=== PATIENT | female | born 2000 | race Two or more races ===

== ENCOUNTER 2019-09-14 15:41 | Outpatient (CLI) | payer OTHER, SELFPAY ==
[2019-09-14 16:32] LABS: Potassium 3.4 mmol/L (3.4-5.0)
== END 2019-09-14 15:42 | disposition home or self-care (01) ==
PROVIDERS: Visit Provider Psychiatry & Neurology Neurology
DX: G93.2 Benign intracranial hypertension (principal)
CPT/HCPCS: 36415; 84132

== ENCOUNTER 2020-02-01 12:48 | Outpatient (CLI) | payer OTHER, SELFPAY ==
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
== END 2020-02-01 12:49 | disposition home or self-care (01) ==
LOC: ANHIMG 12:54
PROVIDERS: PCP Emergency Medicine; Visit Provider Emergency Medicine
DX: M54.5 Low back pain (principal)
CPT/HCPCS: 72100

== ENCOUNTER 2020-06-04 10:47 | Outpatient (RCR) | payer OTHER, SELFPAY ==
[2020-06-04 12:38] LABS: Hematocrit 44.4 % (37.0-47.0); Hemoglobin 14.5 g/dL (12.0-15.0); Mean Corpuscular HGB Conc 32.7 g/dl (32-36); Mean Corpuscular Hemoglobin 30.7 pg (26-34); Mean Corpuscular Volume 93.9 fl (80-100); Mean Platelet Volume 11.1 fl (7.4-10.4); Platelet Count Result 311 k/mm3 (150-375); Red Blood Count 4.73 M/mm3 (4.2-5.4); Red Cell Distribution Width 12.5 % (11.5-14.5); White Blood Count 11.1 K/mm3 (4.5-10.0)
[2020-06-04 13:29] LABS: HIV 1/2 Ab P24 Ag Result Negative (Negative)
[2020-06-04 14:17] LABS: Hepatitis B Surface Antigen Negative (Negative); Rubella IgG Antibody 22.2 IU/ML
[2020-06-04 14:20] LABS: Rapid Plasma Reagin Non-Reactive (NonReactive)
[2020-06-08 19:11] LABS: CMV IgG Antibody <0.60 U/mL (<0.60)
== END 2020-09-02 23:59 | disposition home or self-care (01) ==
LOC: ANHLAB 10:47
PROVIDERS: PCP Emergency Medicine; Visit Provider Obstetrics & Gynecology
DX: N92.5 Other specified irregular menstruation (principal); Z11.4 Encounter for screening for human immunodeficiency virus [HIV]
CPT/HCPCS: 36415; 84702; 85027; 86592; 86644; 86703; 86747; 86762; 86787; 86850; 86900; 86901; 87086; 87340; G0432

== ENCOUNTER 2020-09-16 11:13 | Outpatient (CLI) | payer OTHER, SELFPAY ==
[2020-09-16 12:35] LABS: Beta HCG Quantitative 3.72 mIU/ML
== END 2020-09-16 11:14 | disposition home or self-care (01) ==
PROVIDERS: PCP Emergency Medicine; Visit Provider Psychiatry & Neurology Neurology
DX: G43.909 Migraine, unspecified, not intractable, without status migrainosus (principal); N92.6 Irregular menstruation, unspecified
CPT/HCPCS: 36415; 84702

== ENCOUNTER 2020-09-19 10:56 | Outpatient (CLI) | payer OTHER, SELFPAY ==
[2020-09-19 11:54] LABS: Beta HCG Quantitative < 2.39 mIU/ML
== END 2020-09-19 10:57 | disposition home or self-care (01) ==
PROVIDERS: PCP Emergency Medicine; Visit Provider Obstetrics & Gynecology
DX: N92.6 Irregular menstruation, unspecified (principal)
CPT/HCPCS: 36415; 84702

== ENCOUNTER 2020-11-06 08:35 | Outpatient (CLI) | payer OTHER, SELFPAY ==
[2020-11-06 10:05] LABS: HIV 1/2 Ab P24 Ag Result Negative (Negative)
[2020-11-06 10:29] LABS: Hepatitis B Surface Antigen Negative (Negative)
[2020-11-06 10:35] LABS: HAV RESULT Negative (Negative); Hepatitis B Core IgM Result Negative (Negative)
[2020-11-06 10:46] LABS: Hepatitis C Virus Antibody Negative (Negative)
[2020-11-07 12:02] LABS: Rapid Plasma Reagin Non-Reactive (NonReactive)
== END 2020-11-06 08:36 | disposition home or self-care (01) ==
LOC: ANHLAB 08:38
PROVIDERS: PCP Emergency Medicine; Visit Provider Obstetrics & Gynecology
DX: Z11.3 Encounter for screening for infections with a predominantly sexual mode of transmission (principal)
CPT/HCPCS: 36415; 80074; 86592; 86703; G0432

== ENCOUNTER 2020-11-07 15:36 | Outpatient (CLI) | payer OTHER, SELFPAY ==
[2020-11-07 16:26] LABS: Anion Gap 7 mmol/L (8-16); Blood Urea Nitrogen 12 mg/dL (7-17); Calcium 8.9 mg/dL (8.4-10.2); Carbon Dioxide 26 mmol/L (22-30); Chloride 107 mmol/L (98-107); Estimated Glomerular Filt Rate > 60; Glucose 86 mg/dL (65-105); Potassium 2.9 mmol/L (3.4-5.0); Sodium 140 mmol/L (137-145)
== END 2020-11-07 15:37 | disposition home or self-care (01) ==
LOC: ANHLAB 15:39
PROVIDERS: PCP Emergency Medicine; Visit Provider Psychiatry & Neurology Neurology
DX: G93.2 Benign intracranial hypertension (principal)
CPT/HCPCS: 36415; 80048

== ENCOUNTER 2020-12-03 12:03 | Outpatient (CLI) | payer OTHER, SELFPAY ==
[2020-12-03 13:17] LABS: Beta HCG Quantitative < 2.39 mIU/ML
== END 2020-12-03 12:04 | disposition home or self-care (01) ==
PROVIDERS: PCP Emergency Medicine; Visit Provider Obstetrics & Gynecology
DX: N92.6 Irregular menstruation, unspecified (principal)
CPT/HCPCS: 36415; 84702

== ENCOUNTER 2021-01-20 09:25 | Outpatient (CLI) | payer OTHER, SELFPAY ==
[2021-01-20 10:33] LABS: Beta HCG Quantitative < 2.39 mIU/ML
== END 2021-01-20 09:26 | disposition home or self-care (01) ==
PROVIDERS: PCP Emergency Medicine; Visit Provider Obstetrics & Gynecology
DX: N92.6 Irregular menstruation, unspecified (principal)
CPT/HCPCS: 36415; 84702

== ENCOUNTER 2021-02-15 12:38 | Emergency (ER) | payer OTHER, SELFPAY ==
--- NOTE | ~2021-02-15 | US_ITS ---
EXAMINATION: US OB <=14 wk fetus w TV EXAM DATE: 02/15/2021 15:51 INDICATION: , pelvic pain. Beta hCG 103. 1st trimester. TECHNIQUE: Pelvic obstetrical transabdominal sonogram was performed by a technologist. There are mu ltiple grayscale and Doppler images available for interpretation. There are no earlier studies of th is gestation for comparison. FINDINGS: Uterus measures 8.1 x 4.5 x 4.0 cm, without intrauterine gestation sac identified, however would be unusual to identify one with beta hCG level provided above. Endometrial stripe measures 15 mm, within normal limits. There is small free pelvic fluid. Right adnexa: The ovary measures 3.8 x 2.7 x 2.5 cm and is morphologically normal. Ovarian vascular f low confirmed. Left adnexa: The ovary measures 2.5 x 1.6 x 1.5 cm and is morphologically normal. Ovarian vascular fl ow confirmed. IMPRESSION: Unremarkable exam. Early intrauterine or recent spontaneous are common causes of elevated beta hCG in absence of intrauterine confirmation. Ultrasound can somet imes identify, but never exclude an ectopic in the setting of positive beta hCG. Follow up as warranted clinically with serial beta hCG levels or ultrasound. Reviewed, dictated and finalized at location A. IMPRESSION: Unremarkable exam. Early intrauterine or recent spontaneo us are common causes of elevated beta hCG in absence of intrauterine p regnancy confirmation. Ultrasound can sometimes identify, but never exclude an ectopic in the setting of positive beta hCG. Follow up as warranted clinically with serial beta hCG levels or ultrasound.
[2021-02-15 12:41] VITALS: BP 102/59; PULSE 95; RESP 16; TEMP 37.3; O2SAT 100
[2021-02-15] MEDS: SODIUM CHLORIDE 0.9% IV 1,000 ML 999 ML IV CONT (13:20)
[2021-02-15] MEDS: FAMOTIDINE 20 MG/2 ML VIAL IV PUSH (13:20)
[2021-02-15 13:25] LABS: Basophils Percent Auto 0.4 % (0.2-1.2); Eosinophils Percent Auto 0.4 % (0-4.4); Hemoglobin 12.3 g/dL (12.0-15.0); Immature Granulocyte Absolute 0.05 K/mm3 (0.00-0.031); Immature Granulocyte Percent A 0.5 % (0-0.5); Lymphocytes Absolute Auto 0.86 K/mm3 (0.9-3.2); Lymphocytes Percent Auto 8.9 % (18.3-44.2); Mean Corpuscular HGB Conc 33.2 g/dl (32-36); Mean Corpuscular Hemoglobin 30.3 pg (26-34); Mean Corpuscular Volume 91.1 fl (80-100); Mean Platelet Volume 10.8 fl (7.4-10.4); Monocytes Absolute Auto 0.8 K/mm3 (0.1-0.6); Monocytes Percent Auto 7.8 % (2.6-8.5); Neutrophils Absolute Auto 7.9 K/mm3 (1.3-6.7); Platelet Count Result 242 k/mm3 (150-375); Red Blood Count 4.06 M/mm3 (4.2-5.4); Red Cell Distribution Width 11.8 % (11.5-14.5); White Blood Count 9.6 K/mm3 (4.5-10.0)
[2021-02-15 13:34] LABS: Add Urine Microscopic? YES; Appearance Urine Cloudy (Clear); Bacteria Urine Trace /hpf; Bilirubin Urine Negative (Negative); Blood Urine Negative (Negative); Color Urine Yellow (Yellow); Glucose Urine UA Negative (Negative); Ketones Urine Negative (Negative); Leukocyte Esterase Ur 3+ LEU/UL (Negative); Mucus Urine Few /lpf; Nitrate Urine Negative (Negative); Protein Urine 1+ mg/dL (Negative); RBC Urine 21-50 /hpf (0-2); Specific Grav Ur 1.014 (1.001-1.035); Squamous Epithelial Cell Urine Many /hpf (Few); Urobilinogen Urine Negative mg/dL (<2.0); WBC Urine >75 /hpf
[2021-02-15 13:35] LABS: Alanine Aminotransferase 9 U/L (4-35); Alkaline Phosphatase 71 U/L (38-126); Anion Gap 9 mmol/L (8-16); Aspartate Amino Transferase 19 U/L (14-36); Bilirubin,Total 0.7 mg/dL (0.2-1.3); Blood Urea Nitrogen 6 mg/dL (7-17); Calcium 8.7 mg/dL (8.4-10.2); Carbon Dioxide 17 mmol/L (22-30); Chloride 111 mmol/L (98-107); Estimated CRCL calculation 122 ml/min; Estimated Glomerular Filt Rate > 60; Glucose 94 mg/dL (65-105); Lipase 27 U/L (23-300); Potassium 3.1 mmol/L (3.4-5.0); Sodium 137 mmol/L (137-145)
[2021-02-15 13:36] VITALS: BP 95/47; PULSE 81; RESP 18; TEMP 36.7; O2SAT 100
[2021-02-15 13:52] LABS: Beta HCG Quantitative 103.39 mIU/ML
--- NOTE | 2021-02-15 14:35 | ED.GENADULT ---
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 Patient denies other complaints has not taken anything for symptom Related Data Allergies Allergy/AdvReac Type Severity Reaction Status Date / Time No Known Allergies Allergy Verified 02/15/21 13:16 Review of Systems Review of Systems: All systems reviewed & are unremarkable except as noted in HPI and below PMFSH Social History Social History (Updated 02/15/21 @ 14:37 by Ray Jon PA-C) Tobacco type: e-cigarettes/vaping Gender identity (if verbalized by the patient): Female Exam Narrative: Exam Narrative: GENERAL: Well-appearing, well-nourished, and in no acute distress. HEAD: Normocephalic, atraumatic. EYES: PERRLA and EOMI. ENT: Nares clear, no rhinorrhea or epistaxis. Mucous membranes moist. CHEST: Clear to auscultation. No respiratory distress. No wheezes rales or rhonchi HEART: Regular rate and rhythm. No murmur heard. Normal peripheral pulses. ABDOMEN: Soft, mild tenderness in the lower abdomen no rebound or guarding, nondistended, normal active bowel sounds. EXTREMITIES: Normal range of motion. No edema. SKIN: Warm, dry, no rash. NEURO: No focal deficits. Alert and oriented x3. PSYCH: Normal mood and affect. Course Course Emergency Course: Patient presented with abdominal pain early has urinary tract infection was given fluids and antibiotics in the emergency department will follow with systems testing laboratory technician this week for repeat evaluation to rule out ectopic or other etiologies for pain there is no bleeding and she has been provided with reasons to return ABCs and vital signs intact and stable patient agrees with this plan Consultations Consultation #1: Discussed case with Dr. Gamboa who would like the patient to follow in clinic Tuesday for repeat hCG Date: 02/15/21 Time: 16:18 Vital Signs Vital signs: Vital Signs Temperature 99.2 F 02/15/21 12:41 Pulse Rate 95 02/15/21 12:41 Respiratory Rate 16 02/15/21 12:41 Blood Pressure 102/59 L 02/15/21 12:41 Pulse Oximetry 100 02/15/21 12:41 Temperature 98.1 F 02/15/21 13:36 Pulse Rate 81 02/15/21 13:36 Respiratory Rate 18 02/15/21 13:36 Blood Pressure 95/47 L 02/15/21 13:36 Pulse Oximetry 100 02/15/21 13:36 Medical Decision Making Vital Signs Vital Signs: Vital Signs Temperature 99.2 F 02/15/21 12:41 Pulse Rate 95 02/15/21 12:41 Respiratory Rate 16 02/15/21 12:41 Blood Pressure 102/59 L 02/15/21 12:41 Pulse Oximetry 100 02/15/21 12:41 Temperature 98.1 F 02/15/21 13:36 Pulse Rate 81 02/15/21 13:36 Respiratory Rate 18 02/15/21 13:36 Blood Pressure 95/47 L 02/15/21 13:36 Pulse Oximetry 100 02/15/21 13:36 Lab Data Result diagrams: 02/15/21 13:18 02/15/21 13:18 Labs: Lab Results 02/15/21 02/15/21 02/15/21 Range/Units 13:18 13:18 13:18 WBC 9.6 (4.5-10.0) K/mm3 RBC 4.06 L (4.2-5.4) M/mm3 Hgb 12.3 (12.0-15.0) g/dL Hct 37.0 (37.0-47.0) % MCV 91.1 (80-100) fl MCH 30.3 (26-34) pg MCHC 33.2 (32-36) g/dl RDW 11.8 (11.5-14.5) % Plt Count 242 (150-375) k/mm3 MPV 10.8 H (7.4-10.4) fl Immature Gran % (Auto) 0.5 (0-0.5) % Neut % (Auto) 82.0 H (45.5-73.1) % Lymph % (Auto) 8.9 L (18.3-44.2) % [place] % (Auto) 7.8 (2.6-8.5) % Eos % (Auto) 0.4 (0-4.4) %
[2021-02-15 16:03] VITALS: BP 103/60; PULSE 84; RESP 16; TEMP 37.1; O2SAT 99
[2021-02-15 17:08] VITALS: BP 105/77; PULSE 84; RESP 18; TEMP 36.9; O2SAT 99
== END 2021-02-15 17:08 | disposition home or self-care (01) ==
PROVIDERS: Emergency Medicine Emergency Medical Services; Emergency Provider Emergency Medicine; PCP Emergency Medicine
DX: O23.41 Unspecified infection of urinary tract in pregnancy, first trimester (principal); Z3A.00 Weeks of gestation of pregnancy not specified
CPT/HCPCS: 36415; 76801; 76817; 80053; 81001; 83690; 84702; 85025; 87086; 87088; 96365; 96367; 96375; 99284; J0131; J0696; J7030

== ENCOUNTER 2021-02-19 11:00 | Outpatient (CLI) | payer OTHER, SELFPAY ==
[2021-02-19 13:09] LABS: HIV 1/2 Ab P24 Ag Result Negative (Negative)
[2021-02-19 13:17] LABS: Hepatitis B Surface Antigen Negative (Negative)
[2021-02-19 13:23] LABS: HAV RESULT Negative (Negative); Hepatitis B Core IgM Result Negative (Negative)
[2021-02-19 13:34] LABS: Hepatitis C Virus Antibody Negative (Negative)
[2021-02-20 14:16] LABS: Rapid Plasma Reagin Non-Reactive (NonReactive)
== END 2021-02-19 11:01 | disposition home or self-care (01) ==
LOC: ANHLAB 11:03
PROVIDERS: PCP Emergency Medicine; Visit Provider Obstetrics & Gynecology
DX: Z11.3 Encounter for screening for infections with a predominantly sexual mode of transmission (principal); N92.5 Other specified irregular menstruation
CPT/HCPCS: 36415; 80074; 84702; 86592; 86703; G0432

== ENCOUNTER 2021-02-21 10:33 | Outpatient (CLI) | payer OTHER, SELFPAY | END 2021-02-21 10:34 | disposition home or self-care (01) | LOC: ANHLAB 10:36 | PROVIDERS: PCP Emergency Medicine; Visit Provider Obstetrics & Gynecology | DX: N92.5 Other specified irregular menstruation (principal) | CPT/HCPCS: 36415; 84702 ==

== ENCOUNTER 2021-03-30 08:46 | Outpatient (RCR) | payer OTHER, SELFPAY ==
[2021-03-30 09:39] LABS: Hematocrit 35.8 % (37.0-47.0); Hemoglobin 12.1 g/dL (12.0-15.0); Mean Corpuscular HGB Conc 33.8 g/dl (32-36); Mean Corpuscular Hemoglobin 29.9 pg (26-34); Mean Corpuscular Volume 88.4 fl (80-100); Mean Platelet Volume 12.2 fl (7.4-10.4); Platelet Count Result 228 k/mm3 (150-375); Red Blood Count 4.05 M/mm3 (4.2-5.4); Red Cell Distribution Width 11.7 % (11.5-14.5); White Blood Count 6.8 K/mm3 (4.5-10.0)
[2021-03-30 10:36] LABS: HIV 1/2 Ab P24 Ag Result Negative (Negative)
[2021-03-30 10:48] LABS: Hepatitis B Surface Anti Res Negative
[2021-03-30 10:54] LABS: Rubella IgG Antibody 24.2 IU/ML
[2021-03-31 11:34] LABS: Rapid Plasma Reagin Non-Reactive (NonReactive)
[2021-04-03 13:52] LABS: CMV IgG Antibody <0.60 U/mL (<0.60)
== END 2021-06-28 23:59 | disposition home or self-care (01) ==
LOC: ANHLAB 08:46
PROVIDERS: PCP Emergency Medicine; Visit Provider Obstetrics & Gynecology
DX: Z11.4 Encounter for screening for human immunodeficiency virus [HIV] (principal); O36.0110 Maternal care for anti-D [Rh] antibodies, first trimester, not applicable or unspecified; Z3A.00 Weeks of gestation of pregnancy not specified
CPT/HCPCS: 36415; 84702; 85027; 85461; 86592; 86644; 86703; 86706; 86747; 86762; 86787; 87086; G0432

== ENCOUNTER 2021-04-22 14:20 | Emergency (ER) | payer OTHER, SELFPAY ==
--- NOTE | 2021-04-22 16:07 | PC.NURSE ---
1509- no answer when called for triage
== END 2021-04-22 15:09 | disposition left against medical advice (07) ==
DX: Z53.21 Procedure and treatment not carried out due to patient leaving prior to being seen by health care provider (principal)
CPT/HCPCS: 99199

== ENCOUNTER 2021-06-04 11:55 | Emergency (ER) | payer OTHER, SELFPAY ==
--- NOTE | 2021-06-04 12:02 | ED.DENTAL ---
HPI - Dental/Oral General Chief complaint: Upper Respiratory Infection Stated complaint: toothache/cold symptoms Time Seen by Provider: 06/04/21 12:02 Source: patient, RN notes reviewed and old records reviewed Mode of arrival: ambulatory Limitations: no limitations History of Present Illness HPI Narrative: 21-year-old female who is 19 weeks has a history of depression, anxiety, idiopathic intracranial hypertension and low potassium presents to the [facility] with complaints of nasal congestion and dental pain. States has been going on for couple of days. No treatment prior to arrival because she is . Related Data Allergies Allergy/AdvReac Type Severity Reaction Status Date / Time No Known Allergies Allergy Verified 02/15/21 13:16 Review of Systems Review of Systems: All systems reviewed & are unremarkable except as noted in HPI and below Constitutional: Constitutional: Reports no additional constitutional complaints, Denies chills and Denies fever(s) Eyes: Eyes: Reports no additional eye complaints ENT: Reports as per HPI and Reports nasal congestion Comments: dental pain Cardiovascular: Cardiovascular: Reports no additional cardiovascular complaints Respiratory: Respiratory: Reports no additional respiratory complaints, Denies cough and Denies dyspnea Gastrointestinal: Gastrointestinal: Reports no additional gastrointestinal complaints Musculoskeletal: Musculoskeletal: Reports no additional musculoskeletal complaints Integumentary/Breasts: Skin/Breast: Reports system reviewed and no additional complaints, except as docu Neurologic: Reports system reviewed and no additional complaints, except as documented Psychiatric: Psychiatric: Reports no additional psychiatric complaints Allergic/Immunologic: Allergic/Immunologic: Reports no additional allergic/immunologic complaints PMFSH Past Medical History Medical History Anxiety and depression History of low potassium Intracranial hypertension Idiopathic Social History Social History Tobacco type: e-cigarettes/vaping Gender identity (if verbalized by the patient): Female Comments At the time of my signature, I reviewed and agree with the nursing past medical, surgical, social, and family history. There is no relevant family history pertinent to the patient complaint. Exam Narrative: Patient 19 weeks , heart tones were 148, baby very active. Const: General: healthy appearing, no acute distress and alert Nutritional Appearance: well nourished Orientation/consciousness: patient oriented x3 Limitations: no limitations HENMT: Head: normal to inspection Mouth: Yes lip normal Teeth and gingiva: gingiva abnormal edematous, diffusely erythematous and tender Teeth image: 1. Swelling and increased redness to the surrounding tissue of molar 32. Throat: posterior oropharynx normal and uvula midline Eyes: Conjunctivae: conjunctivae normal Pupils: Equal, round and reactive pupils present Neck: Neck: normal visual inspection, no lymphadenopathy and no meningeal signs Chest: Chest palpation & inspection: normal inspection of the chest Resp: Effort & Inspection: normal respiratory effort Auscultation: clear to auscultation bilaterally Cardio: Rate: regular rate Rhythm: regular rhythm Back/Spine/Pelvis: Back: no CVA tenderness Skin: General skin exam: normal color Rashes: no rashes Wounds: no wounds Neuro: General: patient oriented x3, moves all extremities, no meningeal signs and no focal motor deficits Speech: normal speech Gait exam (Neuro): Normal gait present Extrem: General: normal to inspection Psych: Appearance: grossly normal and well kempt Mental Status: mental status grossly normal Affect: normal affect Attitude: cooperative Thought content: Yes Normal thought content present Course Course Emergency C
[2021-06-04 12:07] VITALS: BP 102/61; PULSE 83; RESP 16; TEMP 36.4; O2SAT 98
== END 2021-06-04 12:19 | disposition home or self-care (01) ==
PROVIDERS: Emergency Provider Nurse Practitioner; PCP Emergency Medicine
DX: O99.612 Diseases of the digestive system complicating pregnancy, second trimester (principal); K92.89 Other specified diseases of the digestive system; K04.7 Periapical abscess without sinus; O99.512 Diseases of the respiratory system complicating pregnancy, second trimester; J01.10 Acute frontal sinusitis, unspecified; Z3A.19 19 weeks gestation of pregnancy; O99.332 Smoking (tobacco) complicating pregnancy, second trimester; F17.290 Nicotine dependence, other tobacco product, uncomplicated
CPT/HCPCS: 99213; G0463

== ENCOUNTER 2021-08-16 11:48 | Observation (INO) | payer OTHER, SELFPAY ==
[2021-08-16] VITALS (55 sets, daily range): BP systolic 73–105; BP diastolic 41–58; PULSE 70–114; TEMP 36.8; O2SAT 99–100; BMI 20.7
--- NOTE | 2021-08-16 12:30 | OBADM ---
This patient, Tracy Stewart, admitted to the OB room 115 for observation for cramping and back pain. Patient/family oriented to hospital policies and general routines including ID bracelet, bed and alarms, visiting hours, pain management, procedures, bathroom and other care routines, personal items, smoking policy, room service/diet, and visiting hours. Patient/Family are encouraged to report perceived risks to care and to ask questions if they do not understand what they are told or what they should do.
[2021-08-16 12:36] LABS: Add Urine Microscopic? NO; Appearance Urine Clear (Clear); Bilirubin Urine Negative (Negative); Blood Urine Negative (Negative); Color Urine Yellow (Yellow); Glucose Urine UA Negative (Negative); Ketones Urine Negative (Negative); Leukocyte Esterase Ur Negative LEU/UL (Negative); Nitrate Urine Negative (Negative); Protein Urine Negative (Negative); Specific Grav Ur 1.012 (1.001-1.035); Urobilinogen Urine Negative mg/dL (<2.0)
[2021-08-16] MEDS: ACETAMINOPHEN 500 MG TABLET 1000 MG PO (14:45)
[2021-08-16] MEDS: TERBUTALINE SULFATE 1 MG/ML VIAL 0.25 MG SUB-Q ×2 (14:48→15:54)
[2021-08-16 15:37] LABS: Fetal Fibronectin Negative
[2021-08-16 17:44] LABS: Amphetamine Screen Urine Negative (Negative); Barbiturate Screen Urine Negative (Negative); Benzodiazepines Screen Urine Negative (Negative); Cannabinoid Screen Urine Negative (Negative); Cocaine Screen Urine Negative (Negative); Methadone Screen Urine Negative (Negative); Opiate Screen Urine Negative (Negative); Phencyclidine Screen Urine Negative (Negative)
--- NOTE | 2021-08-19 15:14 | PM.OBTRLD ---
OB - Triage/Final Diagnosis Visit Information Comments/Additional reasons for admission: I have assessed the risk for this patient, Tracy Stewart, and determined that she would benefit from observation care. Evaluation Laboratory results: Laboratory Tests 08/16/21 08/16/21 08/16/21 12:20 12:20 14:51 Urine Color Yellow Urine Appearance Clear Urine pH 6.0 Ur Specific [place] 1.012 Urine Protein Negative Urine Glucose (UA) Negative Urine Ketones Negative Ur Blood (Man) Negative Urine Nitrate Negative Urine Bilirubin Negative Urine Urobilinogen Negative Leukocyte Esterase Rfl Negative Urine Opiates Screen Negative Urine Methadone Screen Negative Ur Barbiturates Screen Negative Ur Phencyclidine Scrn Negative Ur Amphetamine Screen Negative U Benzodiazepines Scrn Negative Urine Cocaine Screen Negative U Cannabinoids Screen Negative Fibronectin Negative Final Diagnosis (1) Abdominal pain affecting : Code(s): O26.899 - Other specified related conditions, unspecified trimester; R10.9 - Unspecified abdominal pain Status: Acute
== END 2021-08-16 18:23 | disposition home or self-care (01) ==
PROVIDERS: Admitting Provider Obstetrics & Gynecology; PCP Emergency Medicine; Visit Provider Obstetrics & Gynecology
DX: O26.893 Other specified pregnancy related conditions, third trimester (principal); R10.9 Unspecified abdominal pain; Z3A.29 29 weeks gestation of pregnancy
CPT/HCPCS: 80307; 81003; 82731; 96372; A9270; G0378; G0379; J3105

== ENCOUNTER 2021-09-23 18:02 | Observation (INO) | payer OTHER, SELFPAY ==
[2021-09-23] VITALS (59 sets, daily range): BP systolic 85–125; BP diastolic 48–77; PULSE 83–120; O2SAT 98–100
[2021-09-23] MEDS: TERBUTALINE SULFATE 1 MG/ML VIAL 0.25 MG SUB-Q ×3 (19:55→23:08)
[2021-09-23] MEDS: LACTATED RINGERS 1,000 ML 999 ML (21:25)
[2021-09-24] VITALS (24 sets, daily range): BP systolic 109; BP diastolic 50; PULSE 89–121; O2SAT 98–100; BMI 21.7
[2021-09-24] MEDS: NIFEdipine 30 MG TAB.ER.24 PO (00:30)
[2021-09-24] MEDS: MORPHINE SULFATE INJ (*CRX) 10 MG/ML AMP IM (00:30)
--- NOTE | 2021-09-24 01:59 | OBADM ---
This patient, Tracy Stewart, admitted to the OB room Labor/Delivery/Recovery 106 for observation. Patient/family oriented to hospital policies and general routines including ID bracelet, bed and alarms, visiting hours, pain management, procedures, bathroom and other care routines, personal items, smoking policy, room service/diet, and visiting hours. Patient/Family are encouraged to report perceived risks to care and to ask questions if they do not understand what they are told or what they should do.
--- NOTE | 2021-09-24 02:32 | PC.NURSE ---
SVE's not charted in obix prior to discharge. The following SVE's were done: 09/23/2021 @ 1815: 1cm/50%/-2 09/23/2021 @ 2150: 2-3cm/50%/-2 09/23/2021 @ 2305: 3cm/50%/-2 09/24/2021 @ 0200: 3cm/50%/-2 Pt comfortable and states contractions have stopped, verbalizes readiness to be discharged.
--- NOTE | 2021-09-26 09:16 | PM.OBTRLD ---
OB - Triage/Final Diagnosis Visit Information Reason for evaluation: threatened labor Comments/Additional reasons for admission: I have assessed the risk for this patient, Tracy Stewart, and determined that she would benefit from observation care.
== END 2021-09-24 02:11 | disposition home or self-care (01) ==
PROVIDERS: Admitting Provider Obstetrics & Gynecology; PCP Emergency Medicine; Visit Provider Obstetrics & Gynecology
DX: O47.03 False labor before 37 completed weeks of gestation, third trimester (principal); Z3A.35 35 weeks gestation of pregnancy
CPT/HCPCS: 96372; A9270; G0378; G0379; J2270; J3105; J7120

== ENCOUNTER 2021-09-25 23:40 | Observation (INO) | payer OTHER, SELFPAY ==
[2021-09-26 00:07] VITALS: BP 107/67; PULSE 92
[2021-09-26 00:16] VITALS: BP 105/61; PULSE 90
[2021-09-26 00:31] VITALS: BP 104/61; PULSE 79
[2021-09-26 00:46] VITALS: BP 84/41; PULSE 78
[2021-09-26 01:40] VITALS: BMI 21.9
[2021-09-26] MEDS: NIFEdipine 10 MG CAPSULE PO (02:15)
== END 2021-09-26 02:35 | disposition home or self-care (01) ==
PROVIDERS: Admitting Provider Obstetrics & Gynecology; PCP Emergency Medicine; Visit Provider Obstetrics & Gynecology
DX: O47.9 False labor, unspecified (principal); Z3A.00 Weeks of gestation of pregnancy not specified
CPT/HCPCS: A9270; G0378; G0379

== ENCOUNTER 2021-10-11 01:58 | Inpatient (IN) | payer OTHER, SELFPAY ==
[2021-10-11] VITALS (86 sets, daily range): BP systolic 70–121; BP diastolic 35–87; PULSE 62–113; RESP 16; TEMP 36.2–36.9; O2SAT 81–100; BMI 23.0
--- NOTE | 2021-10-11 04:00 | LDADM ---
This patient, Tracy Stewart, was admitted to Labor/Delivery/Recovery 107 on 10/11/21 at 01:58. Plans for labor, pain management and were discussed with patient. Patient/family oriented to hospital policies and general routines including ID bracelet, bed and alarms, visiting hours, pain management, procedures, bathroom and other care routines, personal items, smoking policy, room service/diet and guest tray routines, security routines, and visiting hours. Patient/Family are encouraged to report perceived risks to care and to ask questions if they do not understand what they are told or what they should do. See OBIX for further documentation.
[2021-10-11 04:36] LABS: Basophils Absolute Auto 0.1 K/mm3 (0.0-0.1); Basophils Percent Auto 0.3 % (0.2-1.2); Eosinophils Absolute Auto 0.1 K/mm3 (0-0.3); Eosinophils Percent Auto 0.5 % (0-4.4); Hemoglobin 12.2 g/dL (12.0-15.0); Immature Granulocyte Absolute 0.41 K/mm3 (0.00-0.031); Immature Granulocyte Percent A 2.4 % (0-0.5); Lymphocytes Absolute Auto 2.28 K/mm3 (0.9-3.2); Lymphocytes Percent Auto 13.3 % (18.3-44.2); Mean Corpuscular Hemoglobin 29.5 pg (26-34); Mean Corpuscular Volume 89.4 fl (80-100); Monocytes Absolute Auto 1.1 K/mm3 (0.1-0.6); Monocytes Percent Auto 6.2 % (2.6-8.5); Neutrophils Absolute Auto 13.3 K/mm3 (1.3-6.7); Neutrophils Percent Auto 77.3 % (45.5-73.1); Platelet Count Result 251 k/mm3 (150-375); Red Blood Count 4.14 M/mm3 (4.2-5.4); Red Cell Distribution Width 12.7 % (11.5-14.5); White Blood Count 17.2 K/mm3 (4.5-10.0)
--- NOTE | 2021-10-11 05:15 | WPDANESEPP ---
Anes - Eval Pre Procedure Procedure: labor epidural Date/Time: 10/11/21 05:15 Surgeon: nguyen Pre Op Diagnosis: R/O Labor Patient Data Age: 21 Gender: F Height: Weight: Last Vital Signs Temp 36.9 C 10/11/21 04:29 Pulse 83 10/11/21 05:00 BP 105/60 10/11/21 05:00 Allergies Allergy/AdvReac Type Severity Reaction Status Date / Time No Known Allergies Allergy Verified 10/09/21 10:18 Home Medications Medication Instructions Recorded Confirmed Type potassium chloride 20 mEq 20 meq PO DAILY #30 tablet 12/30/20 10/09/21 Rx tablet,extended release PNV cmb#95-ferrous fumarate-FA 1 tablet PO DAILY 08/16/21 10/09/21 History [] acetazolamide 250 mg tablet 250 mg PO BID #60 tablet 08/17/21 10/09/21 Rx sertraline 100 mg tablet 100 mg PO DAILY 08/25/21 10/09/21 History Laboratory Tests 10/11/21 10/11/21 04:27 04:27 WBC 17.2 K/mm3 H K/mm3 (4.5-10.0) RBC 4.14 M/mm3 L M/mm3 (4.2-5.4) Hgb 12.2 g/dL g/dL (12.0-15.0) Hct 37.0 % % (37.0-47.0) MCV 89.4 fl fl (80-100) MCH 29.5 pg pg (26-34) MCHC 33.0 g/dl g/dl (32-36) RDW 12.7 % % (11.5-14.5) Plt Count 251 k/mm3 k/mm3 (150-375) MPV 12.0 fl H fl (7.4-10.4) Immature Gran % (Auto) 2.4 % H % (0-0.5) Neut % (Auto) 77.3 % H % (45.5-73.1) Lymph % (Auto) 13.3 % L % (18.3-44.2) [place] % (Auto) 6.2 % % (2.6-8.5) Eos % (Auto) 0.5 % % (0-4.4) Baso % (Auto) 0.3 % % (0.2-1.2) Lymph # (Auto) 2.28 K/mm3 K/mm3 (0.9-3.2) [place] # (Auto) 1.1 K/mm3 H K/mm3 (0.1-0.6) Eos # (Auto) 0.1 K/mm3 K/mm3 (0-0.3) Baso # (Auto) 0.1 K/mm3 K/mm3 (0.0-0.1) Abs Immat Gran (auto) 0.41 K/mm3 H K/mm3 (0.00-0.031) Absolute Neuts (auto) 13.3 K/mm3 H K/mm3 (1.3-6.7) Absolute Nucleated RBC 0.0 K/mm3 K/mm3 (0.0-0.012) Nucleated RBC % 0.0 % % (0.0-0.2) RPR Pending Patient hx anesthesia problems: none Family hx anesthesia problems: none Results Review: All pre-operative results and documents have been reviewed as part of the pre-operative evaluation. [facility], [facility] Past Medical History Medical History (Updated 08/19/21 @ 15:14 by Roseanne Moran MD) Anxiety and depression History of low potassium Intracranial hypertension Idiopathic Surgical History Surgical History (Updated 08/24/21 @ 14:15 by LOS Cabral) H/O endoscopic sinus surgery History of gynecological procedure (03/06/20) nexplanon removal History of gynecological procedure (07/23/19) colposcopy History of gynecological procedure (06/20/19) nexplanon insertion Family History Family History (Updated 10/05/21 @ 13:38 by Veronica Calero RN) Grandparent Hypothyroidism Social History Social History (Updated 08/24/21 @ 14:17 by LOS Cabral) Tobacco type: e-cigarettes/vaping Alcohol intake: never Substance use: never Gender identity (if verbalized by the patient): Female Sexual Orientation (if Verbalized by the Patient): Bisexual Spiritual care concerns: No Exam Day of Procedure 10/11/21 05:15
[2021-10-11] MEDS: LACTATED RINGERS 1,000 ML 125 ML IV CONT (06:11)
--- NOTE | 2021-10-11 09:52 | WPDOBADMIT ---
Obstetrics - Admit Note Admission Note: record reviewed. No pertinent additions to the history and/or any subsequent changes in the physical findings that are not consistent with the expected course of the were found. Additions to the history and/or subsequent changes in the physical findings follow. Here in active labor. Now /-1 AROM with clear fluid. FHTs reactive.
[2021-10-11] MEDS: OXYTOCIN 30 UNITS/NS 500 ML 30 UNITS/500 ML BAG 999 UNITS IV CONT (10:49)
--- NOTE | 2021-10-11 10:53 | PM.OBPRVD ---
OB - Delivery Note Procedure Delivery date: 10/11/21 Procedure: Induction method: None Delivery monitor: External FHT and External Uterine Route of delivery: Laceration Description: None Specimen: No Quantitative Blood Loss (ml): 50 Anesthesia type: Epidural Disposition: floor [place] Baby Date of : 10/11/21 Weeks of gestation at delivery: 37 gender: Female presentation: vertex position: Left Occiput Anterior Placenta delivery description: Spontaneous Cord Vessel Description: 3 Vessels and Other (short cord) score one minute: 8 score five minutes: 9
--- NOTE | 2021-10-11 10:55 | PM.OBDSVD ---
DS: Admitting Diagnosis Discharge Date 10/12/21 Admitting Diagnosis active labor at 37 3/7 weeks DS: Discharge Diagnosis Discharge Diagnosis (1) (normal spontaneous vaginal delivery): Code(s): O80 - Encounter for full-term uncomplicated delivery Status: Acute OB - DS: Summary OB Procedures : Ultrasound OB Procedures Intrapartum: Spontaneous Vag Delivery OB Procedures: : None Peripartum Data Delivery Method: Natural Vaginal Laceration Description: None complications: none Status at Discharge Functional status at discharge: independent ambulation Overall status at discharge: patient is progressing back to baseline Time Spent with Patient Time attestation: Total time spent providing and/or coordinating discharge services: DS: Data Data Completed and Pending Labs on day of discharge: Labs from last 24 hours 10/11/21 10/11/21 10/11/21 04:27 04:27 04:27 WBC 17.2 H RBC 4.14 L Hgb 12.2 Hct 37.0 MCV 89.4 MCH 29.5 MCHC 33.0 RDW 12.7 Plt Count 251 MPV 12.0 H Immature Gran % (Auto) 2.4 H Neut % (Auto) 77.3 H Lymph % (Auto) 13.3 L [place] % (Auto) 6.2 Eos % (Auto) 0.5 Baso % (Auto) 0.3 Lymph # (Auto) 2.28 [place] # (Auto) 1.1 H Eos # (Auto) 0.1 Baso # (Auto) 0.1 Abs Immat Gran (auto) 0.41 H Absolute Neuts (auto) 13.3 H Absolute Nucleated RBC 0.0 Nucleated RBC % 0.0 RPR Pending Blood Type A Positive Antibody Screen Negative Discharge Plan Discharge Attending physician on discharge: Elvis Vital Consulting providers: Hali Sanders Discharging Clinician: Elvis Vital Anticipated Discharge Date/Time: 10/13/21 10:56 Patient Disposition: Home, Self-Care Activity: may shower, as tolerated and pelvic rest Diet: regular Discharge Instructions: Education: Mom and Baby Guide and Preeclampsia Handout Given to: Mother Follow-Up: Call your delivering provider's office for an appointment to be seen in: 3 weeks Mom and baby should come to the [facility] for the follow-up appointment. Appointment Date/Time: October 13, 2021 at 9:00 am What to expect at your follow-up visit: Physical Assessment Call [phone] if you are unable to keep your appointment time. BREAST CARE: * Wear a snug supportive bra. * For engorgement discomfort: Breast Feeding: * Apply warm moist washcloths * Express milk as needed to relieve engorgement * Wear loose clothing Bottle Feeding: * May apply ice packs * For sore nipples: * Identify correct latch-on * Apply warm moist washcloths before and after nursing * Air dry nipples after nursing * May apply Lansinoh cream to nipples EPISIOTOMY/PERINEAL CARE: * Until bleeding stops, use your ralf bottle after urinating * Change your pad frequently throughout the day * You may take sitz baths several times a day (fill your bathtub with warm water and soak for 20 minutes.) Do NOT bathe in the water * No tub baths until seen by your physician - You may shower ACTIVITY: * Rest as much as possible. * Do not exercise or lift anything heavier than your baby (such as laundry or other children.) * Avoid stairs or driving as much as possible. * Do not put anything into the vagina. No douching, tampons, or sexual activity until seen by physician. NOTIFY PHYSICIAN IF YOU HAVE ANY QUESTIONS OR IF ANY OF THE FOLLOWING SYMPTOMS OCCUR: * If your vaginal bleeding becomes foul smelling. * If your vaginal bleeding becomes more heavy than a period or if your bleeding changes from pink to bright red. However, you may pass an occasional walnut-sized clot once or twice for the first week . * If you experience a sharp, shooting pain in you calves. * If you discover a hard, reddened area on your breast or if you experience flu-like symptoms.
[2021-10-11] MEDS: OXYTOCIN 30 UNITS/NS 500 ML 30 UNITS/500 ML BAG 125 UNITS IV CONT (11:26)
[2021-10-11] MEDS: WITCH HAZEL 40 PADS 1 PAD TOPICAL (13:42)
[2021-10-11] MEDS: BENZOCAINE 20% AER SPR (*SP) 56 GM CAN 1 SPRAY TOPICAL (13:42)
--- NOTE | 2021-10-11 14:03 | PC.NURSE ---
PT arrived on unit via wheelchair accompanied by spouse and and taken to room 290. PT introductions made and plan of care discussed per post , pain management, daily care activities and breast feeding, PT and spouse both recipients of such instructions and no barriers to learning identified at this time. PT received such instructions per one to one, mom baby care guide and demonstrations this shift. PT verbalized understanding of such care.
[2021-10-11] MEDS: IBUPROFEN 600 MG TABLET PO (21:01)
[2021-10-12 05:06] VITALS: BP 105/47; PULSE 66; RESP 16; TEMP 36.3
[2021-10-12 05:46] LABS: Hematocrit 38.7 % (37.0-47.0); Hemoglobin 12.4 g/dL (12.0-15.0)
[2021-10-12 07:37] VITALS: BP 97/48; PULSE 60; RESP 16; TEMP 36.4; O2SAT 97
[2021-10-12 08:04] LABS: Rapid Plasma Reagin Non-Reactive (NonReactive)
[2021-10-12] MEDS: IBUPROFEN 600 MG TABLET PO (09:18)
[2021-10-12] MEDS: DOCUSATE SODIUM 100 MG CAPSULE PO (09:18)
[2021-10-12] MEDS: MULTIVIT/MIN/PREN/FOL AC/IRON TABLET 1 TAB PO (09:18)
--- NOTE | 2021-10-12 10:30 | PC.NURSE ---
0910 -0915 Introductions were made and mother led the conversation with regards to her experience feeding her baby. Reminded parents to use good handwashing to prevent infection. has had appropriate feedings in the past 24 hours and meets the outcomes for weight, output and jaundice. Mother has been independently , has the confidence to continue effectively her at home and denies any discomfort with . Reviewed production of human milk, transition of milk, signs of adequate intake and engorgement prevention/relief and when to call the infant care provider using the mom and baby guide. Reviewed community resources and outpatient services as listed in the mom and baby guide/[facility] website. Reinforced watching for feeding cues with responsive feeding and how to stimulate to initiate feeding three hours from the start of the last feeding. Mother voiced understanding of information shared. Reported to primary RN.
--- NOTE | 2021-10-12 11:00 | PC.NURSE ---
Patient received instruction on viewing the discharge video Mother & Baby Care, The First Two Weeks online. Patient was given the opportunity and encouraged to ask questions. Patient verbalized understanding of information shared and has been given the mother/baby guide for home reference.
--- NOTE | 2021-10-12 12:16 | WPDANLDPN2 ---
Anes-Prog Note L&D Date/Time: 10/12/21 12:16 Comfortable throughout: labor and delivery Neuraxial method: epidural Epidural/Spinal procedure site: clean & non-tender Neuro status: Neuro function grossly intact. Cardiovascular status: normal Respiratory status: normal Airway patency: baseline Mental status: baseline Post-Op hydration status: normal Vital Signs: Last Vital Signs Temp 36.4 C 10/12/21 07:37 Pulse 60 10/12/21 07:37 Resp 16 10/12/21 07:37 BP 97/48 L 10/12/21 07:37 Pulse Ox 97 10/12/21 07:37 Pain score (VAS): 0 I/O: Intake & Output 10/11/21 10/12/21 10/12/21 23:59 07:59 15:59 Intake Total 500 Balance 500 Post-procedural complaints: none Patient feedback: Patient satisfied with anesthetic care.
[2021-10-12] MEDS: TETANUS,DIPHTHERIA,AC PERTUSSIS ADULT (0.5 ML) BOOSTRIX IM (12:37)
--- NOTE | 2021-10-12 13:49 | PM.OBDSVD ---
DS: Admitting Diagnosis Discharge Date 10/12/21 Admitting Diagnosis OB - DS: Summary OB Procedures : None OB Procedures Intrapartum: Spontaneous Vag Delivery OB Procedures: : None Time Spent with Patient Time attestation: Total time spent providing and/or coordinating discharge services: DS: Data Data Completed and Pending Labs on day of discharge: Labs from last 24 hours 10/12/21 10/11/21 05:05 04:27 Hgb 12.4 Hct 38.7 RPR Non-reactive Discharge Plan Discharge Attending physician on discharge: Elvis Vital Consulting providers: Hali Sanders Discharging Clinician: Elvis Vital Anticipated Discharge Date/Time: 10/13/21 10:56 Patient Disposition: Home, Self-Care Activity: may shower, as tolerated and pelvic rest Diet: regular Discharge Instructions: Education: Mom and Baby Guide and Preeclampsia Handout Given to: Mother Follow-Up: Call your delivering provider's office for an appointment to be seen in: 3 weeks Mom and baby should come to the [facility] for the follow-up appointment. Appointment Date/Time: October 13, 2021 at 9:00 am What to expect at your follow-up visit: Physical Assessment Call [phone] if you are unable to keep your appointment time. BREAST CARE: * Wear a snug supportive bra. * For engorgement discomfort: Breast Feeding: * Apply warm moist washcloths * Express milk as needed to relieve engorgement * Wear loose clothing Bottle Feeding: * May apply ice packs * For sore nipples: * Identify correct latch-on * Apply warm moist washcloths before and after nursing * Air dry nipples after nursing * May apply Lansinoh cream to nipples EPISIOTOMY/PERINEAL CARE: * Until bleeding stops, use your ralf bottle after urinating * Change your pad frequently throughout the day * You may take sitz baths several times a day (fill your bathtub with warm water and soak for 20 minutes.) Do NOT bathe in the water * No tub baths until seen by your physician - You may shower ACTIVITY: * Rest as much as possible. * Do not exercise or lift anything heavier than your baby (such as laundry or other children.) * Avoid stairs or driving as much as possible. * Do not put anything into the vagina. No douching, tampons, or sexual activity until seen by physician. NOTIFY PHYSICIAN IF YOU HAVE ANY QUESTIONS OR IF ANY OF THE FOLLOWING SYMPTOMS OCCUR: * If your vaginal bleeding becomes foul smelling. * If your vaginal bleeding becomes more heavy than a period or if your bleeding changes from pink to bright red. However, you may pass an occasional walnut-sized clot once or twice for the first week . * If you experience a sharp, shooting pain in you calves. * If you discover a hard, reddened area on your breast or if you experience flu-like symptoms. DIET: * Eat regular, well-balanced meals. * Drink plenty of fluids daily. If , drink to thirst. Stand Alone Forms: General Discharge Information Follow-up/Referrals: Elvis Vital MD [Physician] - 6 Weeks Discharge Medications: New ibuprofen 600 mg Tablet 600 mg PO Q6H PRN (Reason: Cramping) Qty: 30 RF: 0 Continued sertraline 100 mg tablet 100 mg PO DAILY RF: 0 PNV cmb#95-ferrous fumarate-FA [] 28 mg iron- 800 mcg Tablet 1 tablet PO DAILY RF: 0 potassium chloride 20 mEq tablet extended release 20 meq PO DAILY Qty: 30 RF: 1 acetazolamide 250 mg tablet 250 mg PO BID Qty: 60 RF: 3 Date of admission: 10/11/21 01:58 Primary Care Provider: Mateusz Reed Admitting Provider: Elvis Vital Attending physician on admission: Elvis Vital Condition: Stable
== END 2021-10-12 14:37 | disposition home or self-care (01) | DRG 560 ==
LOC: ANHLDR 10:57 → ANHOB2 14:20
PROVIDERS: Admitting Provider Obstetrics & Gynecology Gynecology; PCP Emergency Medicine; Visit Provider Obstetrics & Gynecology
DX: O69.3XX0 Labor and delivery complicated by short cord, not applicable or unspecified (principal); Z3A.37 37 weeks gestation of pregnancy; Z37.0 Single live birth; Z23 Encounter for immunization
CPT/HCPCS: 36415; 85014; 85018; 85025; 86592; 86850; 86900; 86901; 90471; 90653; 90715; A9270; G0008; J2590; J2795; J7120

== ENCOUNTER 2022-04-07 14:55 | Outpatient (CLI) | payer OTHER, SELFPAY ==
[2022-04-07 15:37] LABS: Basophils Absolute Auto 0.1 K/mm3 (0.0-0.1); Basophils Percent Auto 1.7 % (0.2-1.2); Eosinophils Absolute Auto 0.1 K/mm3 (0-0.3); Eosinophils Percent Auto 1.9 % (0-4.4); Hematocrit 43.4 % (37.0-47.0); Hemoglobin 14.2 g/dL (12.0-15.0); Immature Granulocyte Absolute 0.03 K/mm3 (0.00-0.031); Immature Granulocyte Percent A 0.4 % (0-0.5); Lymphocytes Absolute Auto 2.91 K/mm3 (0.9-3.2); Lymphocytes Percent Auto 40.3 % (18.3-44.2); Mean Corpuscular HGB Conc 32.7 g/dl (32-36); Mean Corpuscular Hemoglobin 30.2 pg (26-34); Mean Corpuscular Volume 92.3 fl (80-100); Mean Platelet Volume 11.4 fl (7.4-10.4); Monocytes Absolute Auto 0.5 K/mm3 (0.1-0.6); Monocytes Percent Auto 6.8 % (2.6-8.5); Neutrophils Absolute Auto 3.5 K/mm3 (1.3-6.7); Neutrophils Percent Auto 48.9 % (45.5-73.1); Platelet Count Result 328 k/mm3 (150-375); Red Cell Distribution Width 12.3 % (11.5-14.5); White Blood Count 7.2 K/mm3 (4.5-10.0)
[2022-04-07 15:55] LABS: Alanine Aminotransferase 14 U/L (6-35); Albumin Level 4.9 g/dL (3.5-5.1); Alkaline Phosphatase 72 U/L (38-126); Amylase 77 U/L (30-110); Anion Gap 12 mmol/L (8-16); Aspartate Amino Transferase 18 U/L (14-36); Bilirubin,Total 0.5 mg/dL (0.2-1.3); Blood Urea Nitrogen 9 mg/dL (7-17); Calcium 9.2 mg/dL (8.4-10.2); Carbon Dioxide 23 mmol/L (22-30); Chloride 102 mmol/L (98-107); Estimated Glomerular Filt Rate > 60; Glucose 93 mg/dL (65-110); Lipase 49 U/L (23-300); Potassium 3.6 mmol/L (3.4-5.0); Sodium 137 mmol/L (137-145)
== END 2022-04-07 14:56 | disposition home or self-care (01) ==
PROVIDERS: PCP Obstetrics & Gynecology; Visit Provider Obstetrics & Gynecology
DX: R11.10 Vomiting, unspecified (principal)
CPT/HCPCS: 36415; 80053; 82150; 82248; 83690; 85025

== ENCOUNTER → 2022-04-12 10:00 | Outpatient (CLI) | payer OTHER, SELFPAY ==
--- NOTE | ~2022-04-12 | US_ITS ---
US abdomen complete DATE: 04/12/2022 10:25 INDICATION: Vomiting TECHNIQUE: Real-time imaging of complete abdomen, including Doppler COMPARISON: None FINDINGS: No hepatic space-occupying mass lesion is evident. The common bile duct measures 3 mm, norm al. Normal hepatopedal portal venous flow direction. No gallstones or gallbladder wall thickening is detected. Negative sonographic Azar's sign. No panc reatic mass lesion or pancreatic duct dilatation. Normal splenic size. 1.4 cm left renal cyst. The kidneys are otherwise unremarkable. No hydronephrosis. Normal size of the abdominal aorta. The inferior vena cava is unremarkable. IMPRESSION: 1.4 cm left renal cyst; otherwise unremarkable examination Reviewed, dictated and finalized at [facility]. Reviewed, dictated and finalized at location B.
== END ==
PROVIDERS: PCP Obstetrics & Gynecology; Visit Provider Obstetrics & Gynecology
DX: R11.10 Vomiting, unspecified (principal); N28.1 Cyst of kidney, acquired
CPT/HCPCS: 76700

== ENCOUNTER 2022-04-13 17:35 | Outpatient (CLI) | payer OTHER, SELFPAY ==
[2022-04-13 18:15] LABS: Beta HCG Quantitative < 2.39 mIU/ML
== END 2022-04-13 17:36 | disposition home or self-care (01) ==
PROVIDERS: PCP Obstetrics & Gynecology; Visit Provider Obstetrics & Gynecology
DX: N92.6 Irregular menstruation, unspecified (principal)
CPT/HCPCS: 36415; 84702

== ENCOUNTER 2022-04-15 13:23 | Outpatient (CLI) | payer OTHER, SELFPAY ==
--- NOTE | ~2022-04-15 | MR_ITS ---
EXAMINATION: MR brain/brain stem wo/w con DATE: 04/15/2022 14:16 INDICATION: Headache. TECHNIQUE: Magnetic resonance imaging (MRI) of the brain and brainstem was performed without and with 10 mL MultiHance intravenous contrast. COMPARISON: Brain MRI 07/24/2019 FINDINGS: There is no intracranial hemorrhage, acute infarction, or abnormal intracranial mass lesion . The ventricles are normal in size. The paranasal sinuses are clear. The orbits are normal. The mast oid air cells are normal. IMPRESSION: 1. Normal brain. Reviewed, dictated and finalized at location [facility]. IMPRESSION: 1. Normal brain.
== END 2022-04-15 13:24 | disposition home or self-care (01) ==
LOC: ANHIMG 13:27
PROVIDERS: PCP Emergency Medicine; Visit Provider Psychiatry & Neurology Neurology
DX: R51.9 Headache, unspecified (principal)
CPT/HCPCS: 70553; A9577

== ENCOUNTER 2022-06-03 10:40 | Emergency (ER) | payer OTHER, SELFPAY ==
--- NOTE | 2022-06-03 11:03 | PC.NURSE ---
called name for triage no answer.
== END 2022-06-03 11:36 | disposition left against medical advice (07) ==
LOC: ANHED 11:20
DX: Z53.21 Procedure and treatment not carried out due to patient leaving prior to being seen by health care provider (principal)
CPT/HCPCS: 99199

== ENCOUNTER 2022-06-14 13:40 | Outpatient (CLI) | payer OTHER, SELFPAY ==
--- NOTE | ~2022-06-14 | MR_ITS ---
EXAMINATION: MR venography brain DATE: 06/14/2022 14:26 INDICATION: Headache. TECHNIQUE: Magnetic resonance venography (MRV) of the brain and brainstem was performed without intra venous contrast. COMPARISON: Brain MRI 04/15/2022, MR venography 10/05/2016, head CT 12/11/2018 FINDINGS: The superior sagittal sinus, internal cerebral veins, vein of Forrest, straight sinus, transv erse sinuses, and oblique sinuses are normal. IMPRESSION: 1. Normal brain MR venogram. Reviewed, dictated and finalized at location A.
== END 2022-06-14 13:41 | disposition home or self-care (01) ==
PROVIDERS: PCP Emergency Medicine; Visit Provider Psychiatry & Neurology Neurology
DX: R51.9 Headache, unspecified (principal)
CPT/HCPCS: 70544

== ENCOUNTER 2022-07-21 16:32 | Emergency (ER) | payer OTHER, SELFPAY ==
[2022-07-21 16:37] VITALS: BP 105/65; PULSE 114; RESP 16; TEMP 38.1; O2SAT 98
--- NOTE | 2022-07-21 16:46 | ED.URI ---
HPI - URI/Sore Throat General Stated Complaint: VOMITING/CHILLS/SORE THROAT/COUGH Time Seen by Provider: 07/21/22 16:46 Source: patient and RN notes reviewed Mode of arrival: ambulatory Limitations: no limitations History of Present Illness HPI Narrative: 22 y/o female presented for c/o headache, body aches, sinus congestion, cough, nausea/vomiting, fever/chills. Onset yesterday. Endorses 2 people in her house tested positive for influenza A. Denies sob, wheezing or abdominal pain. Taking Tylenol for symptoms. Patient is . MD elicited complaint: cough Related Data Home Medications Medication Instructions Recorded Confirmed vit no.95-ferrous 1 tablet PO DAILY 08/16/21 11/16/21 fumarate 28 mg-folic acid 800 mcg tablet () clonazepam 0.5 mg tablet 0.5 mg PO BID 03/31/22 Allergies Allergy/AdvReac Type Severity Reaction Status Date / Time No Known Allergies Allergy Verified 03/31/22 10:39 Review of Systems Review of Systems: ROS per HPI PMFSH Past Medical History Medical History Anxiety and depression History of low potassium Intracranial hypertension Idiopathic Surgical History Surgical History H/O endoscopic sinus surgery History of gynecological procedure (03/06/20) nexplanon removal History of gynecological procedure (07/23/19) colposcopy History of gynecological procedure (06/20/19) nexplanon insertion Family History Family History Grandparent Hypothyroidism Social History Social History Smoking status: Former smoker Tobacco type: e-cigarettes/vaping Alcohol intake: never Substance use: never Gender identity (if verbalized by the patient): Female Sexual Orientation (if Verbalized by the Patient): Bisexual Spiritual care concerns: No Exam Narrative: GENERAL: Ill-appearing, nontoxic EYES: PERRLA, conjunctivae clear ENT: Mucous membranes moist. TMs pearly rayo with dull light reflex bilaterally; no tragal tenderness. Oropharynx without lesions or exudate, tonsils enlarged 2+ no drooling, no hoarseness, no trismus, uvula midline. NECK: Supple. No lymphadenopathy CHEST: Clear to auscultation, breath sounds equal. No wheezing, rhonchi, rales, or stridor. No respiratory distress, speaks in full sentences. HEART: Regular rate and rhythm. No murmur heard. SKIN: Warm, dry, no rash. NEURO: Alert and oriented x3. PSYCH: Normal mood and affect Course Course Emergency Course: Patient is aware of diagnosis, understands and agrees to treatment plan. Anticipatory guidance given. Patient agrees to follow-up as directed and is aware of reasons to seek care at the emergency department. Portions of this record may have been created with voice recognition software Level of Care: Express Care Visit Vital Signs Vital signs: Vital Signs Temperature 100.5 F H 07/21/22 16:37 Pulse Rate 114 H 07/21/22 16:37 Respiratory Rate 16 07/21/22 16:37 Blood Pressure 105/65 07/21/22 16:37 Pulse Oximetry 98 07/21/22 16:37 Oxygen Delivery Room Air 07/21/22 16:37 Temperature 100.5 F H 07/21/22 16:37 Pulse Rate 114 H 07/21/22 16:37 Respiratory Rate 16 07/21/22 16:37 Blood Pressure 105/65 07/21/22 16:37 Pulse Oximetry 98 07/21/22 16:37 Oxygen Delivery Room Air 07/21/22 16:37 reviewed MDM - URI/Sore Throat MDM Narrative Medical decision making narrative: Presumed positive influenza. Advised supportive measures for influenza and signs/symptoms to go to the ER. Tamiflu risks/benefits reviewed with pt, declines Rx. Pt is appropriate for outpt treatment and f/u. Differential Diagnosis Differential diagnosis: Likely upper respiratory infection, sinusitis, viral infection and influenza Discharge Plan Di
== END 2022-07-21 16:59 | disposition home or self-care (01) ==
PROVIDERS: Emergency Provider Nurse Practitioner Family; PCP Emergency Medicine
DX: B34.9 Viral infection, unspecified (principal); F41.9 Anxiety disorder, unspecified; Z87.891 Personal history of nicotine dependence
CPT/HCPCS: 99211; G0463

== ENCOUNTER 2022-08-19 10:41 | Emergency (ER) | payer OTHER, SELFPAY ==
--- NOTE | ~2022-08-19 | XR_ITS ---
XR elbow LT min 3V DATE: 08/19/2022 11:12 INDICATION: Patient fell down stairs this morning. Posterior elbow pain TECHNIQUE: 4 views COMPARISON: 04/26/2009 left elbow FINDINGS: No fracture or dislocation or joint effusion. No periosteal reaction or bone destruction. J oint spaces are preserved. IMPRESSION: Negative Reviewed, dictated and finalized at location L. 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
[2022-08-19 10:49] VITALS: BP 111/78; PULSE 98; RESP 16; TEMP 36.5; O2SAT 100
[2022-08-19 10:50] VITALS: BP 111/78; PULSE 98; RESP 16; TEMP 36.5; O2SAT 100
--- NOTE | 2022-08-19 10:50 | ED.HEATRA ---
HPI - Head Injury General Chief complaint: Head Injury Stated complaint: FALL/HEAD INJURY Time Seen by Provider: 08/19/22 10:53 Source: patient and RN notes reviewed Mode of arrival: ambulatory Limitations: no limitations History of Present Illness HPI Narrative: 22-year-old female presents with concern for fall down the stairs. She reports she fell less than an hour ago down 5-[address]. She reports left elbow pain, left knee pain. Reports she had her head, however she is not currently have a headache. She denies vomiting, vision changes. She denies any bruising, swelling, abrasions. She denies intervention. Related Data Home Medications Medication Instructions Recorded Confirmed vit no.95-ferrous 1 tablet PO DAILY 08/16/21 07/21/22 fumarate 28 mg-folic acid 800 mcg tablet () clonazepam 0.5 mg tablet 0.5 mg PO BID 03/31/22 08/19/22 Allergies Allergy/AdvReac Type Severity Reaction Status Date / Time No Known Allergies Allergy Verified 08/19/22 10:49 Review of Systems Review of Systems: CONSTITUTIONAL: Denies malaise, chills, sweats, or fever. CARDIOVASCULAR: Denies chest pain, palpitations, or edema. RESPIRATORY: Denies cough or dyspnea. SKIN: Denies rash or itching, bruising, redness, swelling. MUSCULOSKELETAL: Reports left elbow pain, left knee pain ABD: Denies vomiting NEUROLOGIC: Denies numbness, weakness, headache All systems reviewed & are unremarkable except as noted in HPI and below PMFSH Past Medical History Medical History Anxiety and depression History of low potassium Intracranial hypertension Idiopathic Surgical History Surgical History H/O endoscopic sinus surgery History of gynecological procedure (03/06/20) nexplanon removal History of gynecological procedure (07/23/19) colposcopy History of gynecological procedure (06/20/19) nexplanon insertion Family History Family History Grandparent Hypothyroidism Social History Social History Smoking status: Former smoker Tobacco type: e-cigarettes/vaping Alcohol intake: never Substance use: never Gender identity (if verbalized by the patient): Female Sexual Orientation (if Verbalized by the Patient): Bisexual Spiritual care concerns: No Comments At time of signature, agree with nursing past medical, surgical, social and family history. There is no relevant family history pertinent to the presenting complaint Exam Narrative: GENERAL: Well-appearing, well-nourished, and in no acute distress. HEAD: Normocephalic, atraumatic. EYES: PERRLA, sclera clear, and EOMI. No nystagmus. ENT: Nares clear, turbinates pink, no rhinorrhea or epistaxis. Mucous membranes moist. NECK: Supple. No lymphadenopathy. CHEST: No respiratory distress. Speaks in full sentences. HEART: Regular rate and rhythm. No murmur heard. Normal peripheral pulses. EXTREMITIES: Normal range of motion. No edema. Normal strength and sensation. Left elbow tenderness palpation SKIN: Warm, dry, no visible rash. NEURO: Alert and oriented x3. No focal deficits. Cranial nerves II through XII grossly intact PSYCH: Normal mood and affect Course Course Emergency Course: Patient is aware of diagnosis, understands and agrees to treatment plan. Anticipatory guidance given. Patient agrees to follow-up as directed and is aware of reasons to seek care at the emergency department. Portions of this record may have been created with voice recognition software Level of Care: Express Care Visit Vital Signs Vital signs: Vital Signs Temperature 97.7 F 08/19/22 10:49 Pulse Rate 98 08/19/22 10:49 Respiratory Rate 16 08/19/22 10:49 Blood Pressure 111/78 08/19/22 10:49 Pulse Oximetry 100 08/19/22 10:49
== END 2022-08-19 11:22 | disposition home or self-care (01) ==
PROVIDERS: Emergency Provider Nurse Practitioner; PCP Emergency Medicine
DX: M25.522 Pain in left elbow (principal); M25.562 Pain in left knee; W10.9XXA Fall (on) (from) unspecified stairs and steps, initial encounter; Z87.891 Personal history of nicotine dependence
CPT/HCPCS: 73080; 99213; G0463

== ENCOUNTER 2022-09-06 15:27 | Emergency (ER) | payer OTHER, SELFPAY ==
[2022-09-06 15:37] VITALS: BP 123/75; PULSE 101; RESP 16; TEMP 36.9; O2SAT 99
--- NOTE | 2022-09-06 15:45 | ED.GENADULT ---
HPI - General Adult General Chief complaint: Unspecified Stated complaint: potassium med refill Time Seen by Provider: 09/06/22 15:45 Source: patient, RN notes reviewed and old records reviewed Mode of arrival: ambulatory Limitations: no limitations History of Present Illness HPI narrative: 22 year old female who presents to [facility] care accompanied by mother with stated need for refill on her potassium supplement till seen at new physician visit on 09/14/[address] Alfredo Hough. Patient reports that she takes Acetazolamide 250 daily which is a diuretic for her diagnosed condition of intracranial hypertension. Patient states that her neurologist is retiring and she has to also find new neurologist.Patient reports that she has been out of her potassium for 5 days. jackie NEWBY complaint: need for medication refill Related Data Home Medications Medication Instructions Recorded Confirmed clonazepam 0.5 mg tablet 0.5 mg PO BID 03/31/22 09/06/22 cholecalciferol (vitamin D3) 25 25 mcg PO DAILY 08/19/22 09/06/22 mcg (1,000 unit) capsule (Vitamin D3) iron, carbonyl 45 mg tablet 45 mg PO DAILY 08/19/22 09/06/22 (Feosol) Allergies Allergy/AdvReac Type Severity Reaction Status Date / Time No Known Allergies Allergy Verified 09/06/22 15:53 Review of Systems Review of Systems: CONSTITUTIONAL: Denies fever, chills, or sweats. EYES: Denies visual changes, redness, or discharge. ENT: Denies rhinorrhea, congestion, sore throat, or otalgia. CARDIOVASCULAR: Denies chest pain, palpitations, or edema. RESPIRATORY: Denies cough or dyspnea. GASTROINTESTINAL: Denies abdominal pain, nausea, vomiting, or diarrhea. GENITOURINARY: Denies dysuria or hematuria. SKIN: Denies rash or itching. MUSCULOSKELETAL: Denies back pain, joint pain, or myalgia. NEUROLOGIC: Denies headache, numbness, or weakness. PSYCHIATRIC: positive for history of anxiety or depression. All systems reviewed & are unremarkable except as noted in HPI and below PMFSH Past Medical History Medical History Anxiety and depression Fracture of left wrist Fracture of right elbow History of low potassium Intracranial hypertension Idiopathic Surgical History Surgical History H/O endoscopic sinus surgery History of gynecological procedure (03/06/20) nexplanon removal History of gynecological procedure (07/23/19) colposcopy History of gynecological procedure (06/20/19) nexplanon insertion Family History Family History Grandparent Hypothyroidism Social History Social History Smoking status: Former smoker Tobacco type: e-cigarettes/vaping Alcohol intake: never Substance use: never Occupation/Education: unemployed Gender identity (if verbalized by the patient): Female Sexual Orientation (if Verbalized by the Patient): Bisexual Spiritual care concerns: No Comments At time of signature, agree with nursing past medical, surgical, social and family history. There is no relevant family history pertinent to the presenting complaint Exam Narrative: GENERAL: Well-appearing, well-nourished, and in no acute distress. HEAD: Normocephalic, atraumatic. EYES: PERRLA and EOMI. ENT: Nares clear, no rhinorrhea or epistaxis. Mucous membranes moist.TM's normal with good light reflex, throat pink with no lesions or swelling NECK: Supple.no lymphadenopathy CHEST: Clear to auscultation. No respiratory distress.SAO2 99% on room air HEART: Regular rate and rhythm. No murmur heard. Normal peripheral pulses.no chest pain or any palpitations reported ABDOMEN: Soft, nontender, nondistended, normal active bowel sounds. EXTREMITIES: Normal range of motion. No edema.no cramping noted SKIN: Warm, dry, no rash. NEURO: No focal deficits. Alert and oriented x3. Cour
== END 2022-09-06 16:23 | disposition home or self-care (01) ==
PROVIDERS: Emergency Provider Registered Nurse; PCP Emergency Medicine
DX: Z76.0 Encounter for issue of repeat prescription (principal); F41.9 Anxiety disorder, unspecified; G93.2 Benign intracranial hypertension
CPT/HCPCS: 99211; 99213; G0463

== ENCOUNTER 2022-10-14 12:26 | Emergency (ER) | payer OTHER, SELFPAY ==
[2022-10-14 12:45] VITALS: BP 110/70; PULSE 104; RESP 16; TEMP 36.2; O2SAT 98
--- NOTE | 2022-10-14 12:55 | ED.URI ---
HPI - URI/Sore Throat General Chief Complaint: Upper Respiratory Infection Stated Complaint: SORE THROAT/CONGESITON/VOMITING Time Seen by Provider: 10/14/22 12:55 Source: patient Mode of arrival: ambulatory Limitations: no limitations History of Present Illness HPI Narrative: 22 yo F presents with c/o sinsu pressure/congestion, nasal congestion, PND, sore throat and cough for the past several wks. Afebrile. Taking zyrtec daily. is concerned for bacterial sinusitis. All systems reviewed and negative except as noted above. Related Data Home Medications Medication Instructions Recorded Confirmed clonazepam 0.5 mg tablet 0.5 mg PO BID 03/31/22 10/14/22 iron, carbonyl 45 mg tablet 45 mg PO DAILY 08/19/22 10/14/22 (Feosol) Allergies Allergy/AdvReac Type Severity Reaction Status Date / Time No Known Allergies Allergy Verified 09/06/22 15:53 Review of Systems Review of Systems: CONSTITUTIONAL: Denies fever, chills, or sweats. EYES: Denies visual changes, redness, or discharge. ENT: reports rhinorrhea, congestion, sore throat, sinus pressure. Denies otalgia. CARDIOVASCULAR: Denies chest pain, palpitations, or edema. RESPIRATORY: reports cough. Denies dyspnea. GASTROINTESTINAL: Denies abdominal pain, nausea, vomiting, or diarrhea. GENITOURINARY: Denies dysuria or hematuria. SKIN: Denies rash or itching. MUSCULOSKELETAL: Denies back pain, joint pain, or myalgia. NEUROLOGIC: Denies headache, numbness, or weakness. PSYCHIATRIC: Denies anxiety or depression. All other systems reviewed are negative, except as documented in HPI. [facility] Past Medical History Medical History Anxiety and depression Fracture of left wrist Fracture of right elbow History of low potassium Intracranial hypertension Idiopathic Surgical History Surgical History H/O endoscopic sinus surgery History of gynecological procedure (03/06/20) nexplanon removal History of gynecological procedure (07/23/19) colposcopy History of gynecological procedure (06/20/19) nexplanon insertion Family History Family History Grandparent Hypothyroidism Social History Social History Smoking status: Former smoker Tobacco type: e-cigarettes/vaping Alcohol intake: never Substance use: never Occupation/Education: unemployed Gender identity (if verbalized by the patient): Female Sexual Orientation (if Verbalized by the Patient): Bisexual Spiritual care concerns: No Comments At time of signature, agree with nursing past medical, surgical, social and family history. There is no relevant family history pertinent to the presenting complaint. Exam Narrative: GENERAL: This is a well-nourished, well-developed patient, in no apparent distress. HEAD: normocephalic, atraumatic. EYES: PERRL. Sclera clear/white. Vision is grossly intact. EARS: External ears normal, auditory canals clear and without drainage, Fluid bilateral TMs without erythema. NOSE: External nose normal with moderate congestion, erythema and swelling to both nares. Bilateral maxillary sinus tenderness. THROAT: Mucous membranes moist, ,mild erythema, purulent PND NECK: Neck supple, non-tender without lymphadenopathy, masses or thyromegaly. CARDIOVASCULAR: Regular rate and rhythm without murmurs, gallops, or rubs. RESPIRATORY: Clear to auscultation. Breath sounds equal bilaterally. No wheezes, rales, or rhonchi. SKIN: warm, Dry, intact with no suspicious lesions or rash, good texture and turgor. NEURO: awake, alert, and oriented to person, place and time. There were no obvious focal neurologic abnormalities. EXTREMITIES: No joint tenderness, effusion, or edema noted. Course Course Level of Care: Express Care Visit Vital Signs Vital signs: Vital Signs
== END 2022-10-14 13:20 | disposition home or self-care (01) ==
PROVIDERS: Emergency Provider Nurse Practitioner Family; PCP Family Medicine
DX: J01.90 Acute sinusitis, unspecified (principal); B96.89 Other specified bacterial agents as the cause of diseases classified elsewhere; Z87.891 Personal history of nicotine dependence
CPT/HCPCS: 81025; 87081; 87880; 99213; G0463

== ENCOUNTER 2022-10-21 15:51 | Outpatient (CLI) | payer OTHER, SELFPAY ==
[2022-10-21 16:54] LABS: Beta HCG Quantitative < 2.39 mIU/ML
== END 2022-10-21 15:52 | disposition home or self-care (01) ==
LOC: ANHLAB 15:52
PROVIDERS: PCP Family Medicine; Visit Provider Obstetrics & Gynecology
DX: N92.6 Irregular menstruation, unspecified (principal)
CPT/HCPCS: 36415; 84702

== ENCOUNTER 2022-12-21 10:21 | Outpatient (CLI) | payer OTHER, SELFPAY ==
[2022-12-21 11:13] LABS: Beta HCG Quantitative < 2.39 mIU/ML
== END 2022-12-21 10:22 | disposition home or self-care (01) ==
PROVIDERS: PCP Family Medicine; Visit Provider Obstetrics & Gynecology
DX: N92.6 Irregular menstruation, unspecified (principal)
CPT/HCPCS: 36415; 84702

== ENCOUNTER 2023-06-29 12:19 | Emergency (ER) | payer OTHER, SELFPAY ==
--- NOTE | ~2023-06-29 | XR_ITS ---
EXAMINATION: XR thoracic spine 3V DATE: 06/29/2023 13:03 INDICATION: Back pain. Fall down stairs. TECHNIQUE: 3 views of the thoracic spine were obtained. COMPARISON: None. FINDINGS: There is 10 degrees dextroscoliosis of thoracic spine and 22 degrees levoscoliosis of thora columbar spine. Vertebral body heights and intervertebral disc heights are normal. IMPRESSION: 1. No fracture. 2. Scoliosis. Reviewed, dictated and finalized at location A. TZ MOUNTER
--- NOTE | ~2023-06-29 | XR_ITS ---
EXAMINATION: XR sacrum coccyx min 2V DATE: 06/29/2023 13:03 INDICATION: Back pain. Fall down stairs. TECHNIQUE: 3 views of the sacrum and coccyx were obtained. COMPARISON: None. FINDINGS: There is lumbar levocurvature. No fracture. The sacroiliac joints are normal. IMPRESSION: 1. No fracture. Reviewed, dictated and finalized at location A. E TENDER IMPRESSION: 1. No fracture.
[2023-06-29 12:29] VITALS: BP 114/68; PULSE 81; RESP 16; TEMP 36.3; O2SAT 100
--- NOTE | 2023-06-29 12:34 | ED.FALL ---
HPI - Fall General Chief Complaint: Fall Stated Complaint: FALL/HURTS TO BREATHE/BACK PAIN/SLEEPY Time Seen by Provider: 06/29/23 12:35 Source: patient Mode of arrival: ambulatory Limitations: no limitations History of Present Illness HPI Narrative: 23 yo F present with c/o pain to sacrum and mid back. Pt states she fell down stairs and landed on butt approx. 2 hrs prior to arrival States pain went through back . Ambulatory with steady gait. did not take any OTC pain meds prior to arrival. States hurts very bad to sit on butt . all systems reviewed and negative except as noted above. Related Data Home Medications Medication Instructions Recorded Confirmed iron, carbonyl 45 mg tablet 45 mg PO DAILY 08/19/22 06/29/23 (Feosol) Allergies Allergy/AdvReac Type Severity Reaction Status Date / Time No Known Allergies Allergy Verified 06/29/23 12:36 Review of Systems Review of Systems: CONSTITUTIONAL: Denies fever, chills, or sweats. EYES: Denies visual changes, redness, or discharge. ENT: Denies rhinorrhea, congestion, sore throat, or otalgia. CARDIOVASCULAR: Denies chest pain, palpitations, or edema. RESPIRATORY: Denies cough or dyspnea. GASTROINTESTINAL: Denies abdominal pain, nausea, vomiting, or diarrhea. GENITOURINARY: Denies dysuria or hematuria. SKIN: Denies rash or itching. MUSCULOSKELETAL: Reports upper/mid back pain and sacral pain. NEUROLOGIC: Denies headache, numbness, or weakness. PSYCHIATRIC: Denies anxiety or depression. All other systems reviewed are negative, except as documented in HPI. [facility] Past Medical History Medical History Anxiety and depression Fracture of left wrist Fracture of right elbow History of low potassium Intracranial hypertension Idiopathic Irregular bleeding Surgical History Surgical History H/O endoscopic sinus surgery History of gynecological procedure (03/06/20) nexplanon removal History of gynecological procedure (07/23/19) colposcopy History of gynecological procedure (06/20/19) nexplanon insertion Family History Family History Grandparent Hypothyroidism Social History Social History Smoking status: Former smoker Tobacco type: e-cigarettes/vaping Alcohol intake: never Substance use: never Occupation/Education: unemployed Gender identity (if verbalized by the patient): Female Sexual Orientation (if Verbalized by the Patient): Bisexual Spiritual care concerns: No Comments At time of signature, agree with nursing past medical, surgical, social and family history. There is no relevant family history pertinent to the presenting complaint. Exam Narrative: GENERAL: This is a well-nourished, well-developed patient, in no apparent distress. HEAD: normocephalic, atraumatic. EYES: PERRL. Sclera clear/white. Vision is grossly intact. EARS: External ears normal NOSE: External nose normal NECK: Neck supple, non-tender without lymphadenopathy, masses or thyromegaly. CARDIOVASCULAR: Regular rate and rhythm without murmurs, gallops, or rubs. RESPIRATORY: Clear to auscultation. Breath sounds equal bilaterally. No wheezes, rales, or rhonchi. SKIN: warm, Dry, intact with no suspicious lesions or rash, good texture and turgor. NEURO: awake, alert, and oriented to person, place and time. There were no obvious focal neurologic abnormalities. EXTREMITIES: No joint tenderness, effusion, or edema noted. No calf tenderness. Negative Homans sign bilaterally. BACK: Tenderness to thoracic spine, T4 through T6. No deformity noted. Tenderness to sacrum on palpation. No neuro deficits, patient ambulatory with steady gait. Course Course Level of Care: Express Care Visit Vital Signs Vital signs: Vital Signs Temperature 36.3
[2023-06-29] MEDS: IBUPROFEN 600 MG TABLET PO (13:02)
== END 2023-06-29 13:30 | disposition home or self-care (01) ==
PROVIDERS: Emergency Provider Nurse Practitioner Family; PCP Family Medicine
DX: S30.0XXA Contusion of lower back and pelvis, initial encounter (principal); S39.012A Strain of muscle, fascia and tendon of lower back, initial encounter; Z87.891 Personal history of nicotine dependence; W10.9XXA Fall (on) (from) unspecified stairs and steps, initial encounter
CPT/HCPCS: 72072; 72220; 99213; A9270; G0463

== ENCOUNTER 2023-12-31 12:44 | Outpatient (CLI) | payer OTHER, SELFPAY ==
[2023-12-31 13:11] LABS: Basophils Absolute Auto 0.1 K/mm3 (0.0-0.1); Basophils Percent Auto 0.6 % (0.2-1.2); Eosinophils Absolute Auto 0.1 K/mm3 (0-0.3); Eosinophils Percent Auto 0.7 % (0-4.4); Hematocrit 39.8 % (37.0-47.0); Hemoglobin 13.6 g/dL (12.0-15.0); Immature Granulocyte Absolute 0.02 K/mm3 (0.00-0.031); Immature Granulocyte Percent A 0.2 % (0-0.5); Lymphocytes Absolute Auto 1.72 K/mm3 (0.9-3.2); Lymphocytes Percent Auto 17.5 % (18.3-44.2); Mean Corpuscular HGB Conc 34.2 g/dl (32-36); Mean Corpuscular Hemoglobin 30.3 pg (26-34); Mean Corpuscular Volume 88.6 fl (80-100); Mean Platelet Volume 11.1 fl (7.4-10.4); Monocytes Absolute Auto 0.6 K/mm3 (0.1-0.6); Neutrophils Absolute Auto 7.4 K/mm3 (1.3-6.7); Platelet Count Result 316 k/mm3 (150-375); Red Blood Count 4.49 M/mm3 (4.2-5.4); Red Cell Distribution Width 12.1 % (11.5-14.5); White Blood Count 9.9 K/mm3 (4.5-10.0)
[2023-12-31 14:01] LABS: HIV 1/2 Ab P24 Ag Result Negative (Negative)
[2023-12-31 14:50] LABS: Hepatitis B Surface Antigen Negative (Negative); Rubella IgG Antibody 31.9 IU/ML
[2024-01-02 12:08] LABS: CMV IgG Antibody <0.60 U/mL
[2024-01-02 14:35] LABS: Rapid Plasma Reagin Non-Reactive (NonReactive)
== END 2023-12-31 12:45 | disposition home or self-care (01) ==
LOC: ANHLAB 12:45
PROVIDERS: PCP Family Medicine; Visit Provider Obstetrics & Gynecology
DX: N91.2 Amenorrhea, unspecified (principal)
CPT/HCPCS: 36415; 84702; 85025; 86592; 86644; 86703; 86747; 86762; 86787; 86850; 86900; 86901; 87086; 87088; 87340; G0432

== ENCOUNTER 2024-05-10 12:18 | Outpatient (CLI) | payer OTHER, SELFPAY ==
[2024-05-10 14:01] LABS: Hematocrit 31.7 % (37.0-47.0); Hemoglobin 10.7 g/dL (12.0-15.0); Mean Corpuscular HGB Conc 33.8 g/dl (32-36); Mean Corpuscular Hemoglobin 32.2 pg (26-34); Mean Corpuscular Volume 95.5 fl (80-100); Mean Platelet Volume 11.6 fl (7.4-10.4); Platelet Count Result 237 k/mm3 (150-375); Red Blood Count 3.32 M/mm3 (4.2-5.4); White Blood Count 11.5 K/mm3 (4.5-10.0)
[2024-05-10 14:13] LABS: Glucose 1 Hour PP 50gm Dose 100 mg/dL
[2024-05-10 15:22] LABS: HIV 1/2 Ab P24 Ag Result Negative (Negative)
[2024-05-11 10:51] LABS: Rapid Plasma Reagin Non-Reactive (NonReactive)
== END 2024-05-10 12:19 | disposition home or self-care (01) ==
PROVIDERS: PCP Family Medicine; Visit Provider Obstetrics & Gynecology
DX: Z34.90 Encounter for supervision of normal pregnancy, unspecified, unspecified trimester (principal)
CPT/HCPCS: 36415; 82947; 85027; 86592; 86703; G0432

== ENCOUNTER 2024-05-17 10:39 | Outpatient (CLI) | payer OTHER, SELFPAY ==
[2024-05-17 11:27] LABS: Alanine Aminotransferase 10 U/L (6-35); Albumin Level 3.7 g/dL (3.5-5.1); Alkaline Phosphatase 51 U/L (38-126); Anion Gap 10 mmol/L (4-12); Aspartate Amino Transferase 15 U/L (14-36); Bilirubin,Total 0.2 mg/dL (0.2-1.3); Blood Urea Nitrogen 4 mg/dL (7-17); Calcium 8.9 mg/dL (8.4-10.2); Carbon Dioxide 15 mmol/L (22-30); Chloride 109 mmol/L (98-107); Estimated Glomerular Filt Rate > 60; Glucose 84 mg/dL (65-110); Potassium 2.8 mmol/L (3.4-5.0); Sodium 134 mmol/L (137-145)
[2024-05-17 11:46] LABS: Free T4 Free Thyroxine 0.88 ng/mL (0.78-2.19)
[2024-05-19 15:58] LABS: Triiodothyronine T3 Free 2.7 pg/mL (2.3-4.2)
== END 2024-05-17 10:40 | disposition home or self-care (01) ==
LOC: ANHLAB 10:41
PROVIDERS: PCP Family Medicine; Visit Provider Obstetrics & Gynecology
DX: Z34.90 Encounter for supervision of normal pregnancy, unspecified, unspecified trimester (principal); R53.83 Other fatigue; Z34.00 Encounter for supervision of normal first pregnancy, unspecified trimester
CPT/HCPCS: 36415; 80053; 84439; 84443; 84481

== ENCOUNTER 2024-05-24 09:37 | Outpatient (CLI) | payer OTHER, SELFPAY ==
[2024-05-24 10:07] LABS: Alanine Aminotransferase 9 U/L (6-35); Albumin Level 3.6 g/dL (3.5-5.1); Alkaline Phosphatase 53 U/L (38-126); Anion Gap 8 mmol/L (4-12); Aspartate Amino Transferase 13 U/L (14-36); Bilirubin,Total 0.3 mg/dL (0.2-1.3); Blood Urea Nitrogen 3 mg/dL (7-17); Calcium 8.8 mg/dL (8.4-10.2); Carbon Dioxide 17 mmol/L (22-30); Chloride 109 mmol/L (98-107); Estimated Glomerular Filt Rate > 60; Glucose 100 mg/dL (65-110); Sodium 134 mmol/L (137-145)
== END 2024-05-24 09:38 | disposition home or self-care (01) ==
PROVIDERS: PCP Family Medicine; Visit Provider Obstetrics & Gynecology
DX: E87.6 Hypokalemia (principal)
CPT/HCPCS: 36415; 80053

== ENCOUNTER 2024-06-07 12:35 | Outpatient (CLI) | payer OTHER, SELFPAY ==
[2024-06-07 13:54] LABS: Alanine Aminotransferase 8 U/L (6-35); Albumin Level 3.4 g/dL (3.5-5.1); Alkaline Phosphatase 69 U/L (38-126); Anion Gap 8 mmol/L (4-12); Aspartate Amino Transferase 14 U/L (14-36); Bilirubin,Total 0.3 mg/dL (0.2-1.3); Blood Urea Nitrogen 3 mg/dL (7-17); Calcium 9.3 mg/dL (8.4-10.2); Carbon Dioxide 19 mmol/L (22-30); Chloride 108 mmol/L (98-107); Estimated Glomerular Filt Rate > 60; Glucose 103 mg/dL (65-110); Potassium 2.7 mmol/L (3.4-5.0); Sodium 135 mmol/L (137-145)
== END 2024-06-07 12:36 | disposition home or self-care (01) ==
LOC: ANHLAB 12:36
PROVIDERS: PCP Family Medicine; Visit Provider Obstetrics & Gynecology
DX: E87.6 Hypokalemia (principal)
CPT/HCPCS: 36415; 80053

== ENCOUNTER 2024-06-13 12:17 | Outpatient (CLI) | payer OTHER, SELFPAY ==
[2024-06-13 12:59] LABS: Alanine Aminotransferase 8 U/L (6-35); Albumin Level 3.6 g/dL (3.5-5.1); Alkaline Phosphatase 78 U/L (38-126); Anion Gap 10 mmol/L (4-12); Aspartate Amino Transferase 12 U/L (14-36); Bilirubin,Total 0.2 mg/dL (0.2-1.3); Blood Urea Nitrogen 2 mg/dL (7-17); Calcium 9.1 mg/dL (8.4-10.2); Carbon Dioxide 17 mmol/L (22-30); Chloride 107 mmol/L (98-107); Estimated Glomerular Filt Rate > 60; Glucose 89 mg/dL (65-110); Potassium 3.1 mmol/L (3.4-5.0); Sodium 134 mmol/L (137-145)
== END 2024-06-13 12:18 | disposition home or self-care (01) ==
LOC: ANHLAB 12:19
PROVIDERS: PCP Physician Assistant; Visit Provider Obstetrics & Gynecology
DX: E87.6 Hypokalemia (principal)
CPT/HCPCS: 36415; 80053

== ENCOUNTER 2024-07-20 14:23 | Outpatient (CLI) | payer OTHER, SELFPAY ==
--- NOTE | ~2024-07-20 | US_ITS ---
US OB follow up DATE: 07/20/2024 15:31 INDICATION: Supervision of normal TECHNIQUE: Real time imaging and doppler analysis COMPARISON: 05/23/2024 limited OB ultrasound FINDINGS: Live zamarripa intrauterine gestation with fetus in vertex presentation, longitudinal lie. heart rate: 152 beats per minute BPD: 8.48 cm; 34 weeks 1 day Head circumference: 31.14 cm; 34 weeks 6 days Abdominal circumference 30.92 cm; 34 weeks 6 days Femur length: 6.74 cm; 34 weeks 5 days Composite age by Hadlock formula: 34 weeks 5 days plus or minus 2 weeks 3 days EFW: 2500 plus or minus 375 grams EFW-GP less than 3% HC/AC 1.01 (0.93-1.11) FL/AC 21.80 (20.00-24.00) FL/HC 21.64 (19.90-22.16) Posterior placenta, lower margin well above internal os. Normal amount of amniotic fluid; SARI 14.6 cm (5th percentile: 7.3 cm; 95th percentile: 23.9 cm) IMPRESSION: Composite age by Hadlock formula: 34 weeks 5 days plus or minus 2 weeks 3 days EFW: 2500 plus or minus 375 grams EFW-GP less than 3% Reviewed, dictated and finalized at Location A. Reviewed, dictated and finalized at location A. IT ANALYST
== END 2024-07-20 14:24 | disposition home or self-care (01) ==
PROVIDERS: PCP Physician Assistant; Visit Provider Obstetrics & Gynecology
DX: Z34.90 Encounter for supervision of normal pregnancy, unspecified, unspecified trimester (principal); Z3A.00 Weeks of gestation of pregnancy not specified
CPT/HCPCS: 76816

== ENCOUNTER 2024-07-21 06:45 | Inpatient (IN) | payer OTHER, SELFPAY ==
[2024-07-21] VITALS (31 sets, daily range): BP systolic 92–135; BP diastolic 50–93; PULSE 67–113; RESP 16–18; TEMP 36.3–37; O2SAT 96–100; BMI 23.4
[2024-07-21 07:13] LABS: Basophils Absolute Auto 0.1 K/mm3 (0.0-0.1); Basophils Percent Auto 0.4 % (0.2-1.2); Eosinophils Absolute Auto 0.1 K/mm3 (0-0.3); Eosinophils Percent Auto 0.5 % (0-4.4); Hemoglobin 13.3 g/dL (12.0-15.0); Immature Granulocyte Absolute 0.26 K/mm3 (0.00-0.031); Lymphocytes Percent Auto 10.9 % (18.3-44.2); Mean Corpuscular HGB Conc 34.1 g/dl (32-36); Mean Corpuscular Hemoglobin 31.7 pg (26-34); Mean Corpuscular Volume 92.9 fl (80-100); Mean Platelet Volume 11.6 fl (7.4-10.4); Monocytes Absolute Auto 0.7 K/mm3 (0.1-0.6); Monocytes Percent Auto 5.4 % (2.6-8.5); Neutrophils Absolute Auto 10.4 K/mm3 (1.3-6.7); Neutrophils Percent Auto 80.8 % (45.5-73.1); Platelet Count Result 213 k/mm3 (150-375); Red Cell Distribution Width 13.8 % (11.5-14.5); White Blood Count 12.9 K/mm3 (4.5-10.0)
--- NOTE | 2024-07-21 07:35 | LDADM ---
This patient, Tracy Stewart, was admitted to Labor/Delivery/Recovery 106 on 07/21/24 at 06:45. Plans for labor, pain management and were discussed with patient. Patient/family oriented to hospital policies and general routines including ID bracelet, bed and alarms, visiting hours, pain management, procedures, bathroom and other care routines, personal items, smoking policy, room service/diet and guest tray routines, security routines, and visiting hours. Patient/Family are encouraged to report perceived risks to care and to ask questions if they do not understand what they are told or what they should do. See OBIX for further documentation.
[2024-07-21 08:06] LABS: HIV 1/2 Ab P24 Ag Result Negative (Negative)
[2024-07-21] MEDS: OXYTOCIN 30 UNITS/NS 500 ML 30 UNITS/500 ML BAG 125 UNITS IV CONT (08:13)
--- NOTE | 2024-07-21 08:14 | WPDANESEPP ---
Anes - Eval Pre Procedure Procedure: labor epidrual Date/Time: 07/21/24 0755 Pre Op Diagnosis: Leaking, contractions Patient Data Age: 24 Gender: F Height: 1.6 m Weight: 60 kg Last Vital Signs Temp 37.0 C 07/21/24 07:00 Pulse 88 07/21/24 07:45 Resp 18 07/21/24 07:00 BP 118/78 07/21/24 07:45 Pulse Ox 100 07/21/24 08:13 Allergies Allergy/AdvReac Type Severity Reaction Status Date / Time No Known Allergies Allergy Verified 07/17/24 16:43 Home Medications Medication Instructions Recorded Confirmed Type iron, carbonyl 45 mg tablet 45 mg PO DAILY 08/19/22 07/21/24 History (Feosol) acetazolamide 250 mg tablet See Rx Instructions .Route 02/11/23 07/21/24 Rx .COMPLEX #60 tabs clonazepam 1 mg tablet 1 mg PO DAILY 11/08/23 07/21/24 History fluoxetine 20 mg capsule (Prozac) 20 mg PO DAILY #90 caps 06/05/24 07/21/24 Rx potassium chloride 20 mEq 20 meq PO DAILY #60 tabs 06/13/24 07/21/24 Rx tablet,extended release(part/cryst) ondansetron 4 mg disintegrating 4 mg PO Q6H PRN nausea and 07/02/24 07/21/24 Rx tablet vomiting #30 tabs Laboratory Tests 07/21/24 07:05 WBC 12.9 H K/mm3 (4.5-10.0) RBC 4.20 M/mm3 (4.2-5.4) Hgb 13.3 g/dL (12.0-15.0) Hct 39.0 % (37.0-47.0) MCV 92.9 fl (80-100) MCH 31.7 pg (26-34) MCHC 34.1 g/dl (32-36) RDW 13.8 % (11.5-14.5) Plt Count 213 k/mm3 (150-375) MPV 11.6 H fl (7.4-10.4) Immature Gran % (Auto) 2.0 H % (0-0.5) Neut % (Auto) 80.8 H % (45.5-73.1) Lymph % (Auto) 10.9 L % (18.3-44.2) [place] % (Auto) 5.4 % (2.6-8.5) Eos % (Auto) 0.5 % (0-4.4) Baso % (Auto) 0.4 % (0.2-1.2) Lymph # (Auto) 1.40 K/mm3 (0.9-3.2) [place] # (Auto) 0.7 H K/mm3 (0.1-0.6) Eos # (Auto) 0.1 K/mm3 (0-0.3) Baso # (Auto) 0.1 K/mm3 (0.0-0.1) Abs Immat Gran (auto) 0.26 H K/mm3 (0.00-0.031) Absolute Neuts (auto) 10.4 H K/mm3 (1.3-6.7) Absolute Nucleated RBC 0.000 K/mm3 (0.0-0.012) Nucleated RBC % 0.0 % (0.0-0.2) RPR Pending HIV 1&2 Ab/P24 Ag 4thGn Negative (Negative) Blood Type A Positive Antibody Screen Negative Patient hx anesthesia problems: none Family hx anesthesia problems: none Results Review: All pre-operative results and documents have been reviewed as part of the pre-operative evaluation. [facility] Past Medical History Medical History Anxiety and depression Chronic daily headache Fracture of left wrist Fracture of right elbow History of low potassium Intracranial hypertension Idiopathic Irregular bleeding Surgical History Surgical History H/O endoscopic sinus surgery History of gynecological procedure (03/06/20) nexplanon removal History of gynecological procedure (07/23/19) colposcopy History of gynecological procedure (06/20/19) nexplanon insertion Family History Family History Grandparent Hypothyroidism Social History Social History Smoking status: Former smoker Tobacco type: e-cigarettes/vaping Second hand tobacco smoke exposure: No Smoking end date: 08/15/20 Alcohol intake: never Substance use: never Substance use type: does not use Do You Feel Safe in your Home?: Yes Lack of Transportation: YES Lack of Food: Never True Current Housing: Decline to Answer Concerned About Future Housing: Decline to Answer Difficulty Paying Gas/Electric Bills: Decline to Answer Difficulty Paying for Meds: Decline to Answer Currently Unemployed: Decline to Answer Education: Decline to Answer Difficulty w/ Childcare or Family Care: Decline to Answer Living arrangements: with family Additional living arrangements comments: Occupation/Education: other 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 METALLURGICAL TECHNICIAN looked over patient history and neurology notes and noted patient persistent chronic daily headaches and a recent referral to a [facility] physician related to the 04/07/24 neurology appt she had. METALLURGICAL TECHNICIAN consulted Dr. Turner about neuraxial anesthesia and if it was safe/indicated with pseudo tumor cerebri at 0730. METALLURGICAL TECHNICIAN and MD reviewed patient history and MD reviewed the literature on neuraxial with this particular disease. Patient labor was progressing rapidly and labs were still pending at this time. Dr. Turner after reviewing the literature advised to not do neuraxial anesthesia for this patient as we did not have a neurology consult about safeness for patient or any updated ICP pressures. He noted the literature guidelines and the need for further workup needed prior to neuraxial placement, and a close conversation with neurology would have been warranted. METALLURGICAL TECHNICIAN with RN discussed this with patient and family member at bedside. Simultaneously RN checked patient and she was dilated to 8cm at approximately [id number]. Patient and family member declared for the METALLURGICAL TECHNICIAN to call [facility]. METALLURGICAL TECHNICIAN contacted [facility] and updated him on events. Patient had previous epidurals however as Yue noted, we are unsure why patient was being referred to [facility] neurologist and patient still having persisnent headaches, with no updated ICP measurement, he did not feel comfortable proceeding with epidural at this time. Patient was not complete and pushing prior to 0800. total time from looking at patient history in chart to delivery approx 30 min. Labs were delayed and were still not available when METALLURGICAL TECHNICIAN came to pre-op patient at 0738.
[2024-07-21] MEDS: fentaNYL CITRATE INJ (*CRX) 100 MCG/2 ML VIAL 50 MCG IV PUSH (08:35)
[2024-07-21 08:39] LABS: Rapid Plasma Reagin Non-Reactive (NonReactive)
[2024-07-21] MEDS: LACTATED RINGERS 1,000 ML 125 ML IV CONT (08:42)
--- NOTE | 2024-07-21 09:02 | WPDHPUPDATE1 ---
History and Physical Update Update Date/Time: 07/21/24 09:02 History and Physical has been reviewed, including an updated exam of the patient. There are NO changes in the patient's condition. Risks, benefits, and alternatives have been discussed and questions answered. Patient agrees to proceed with procedure.
--- NOTE | 2024-07-21 09:02 | WPDOBADMIT ---
Obstetrics - Admit Note Admission Note: record reviewed. No pertinent additions to the history and/or any subsequent changes in the physical findings that are not consistent with the expected course of the were found. Additions to the history and/or subsequent changes in the physical findings follow. None.
--- NOTE | 2024-07-21 09:03 | PM.OBPRVD ---
OB - Vaginal Delivery Note Procedure Delivery date: 07/21/24 Delivery monitor: External FHT and External Uterine Route of delivery: Episiotomy description: None Laceration Description: None Specimen: No Quantitative Blood Loss (ml): 300 Anesthesia type: None Disposition: Floor Complications: No immediate complications Narrative: Patient prepped in this procedure. Precipitous issue. Cord clamped baby was field. Placenta did deliver spontaneously with minimal bleeding. Cervix vagina vulva inspected with no lacerations or tears. Immediate postoperative condition excellent. Baby Gestational Age by Date: 37 gender: Female presentation: vertex Placenta delivery description: Spontaneous Cord Vessel Description: 3 Vessels
[2024-07-21] MEDS: BENZOCAINE 20% AER SPR (*SP) 56 GM CAN 1 SPRAY TOPICAL (09:30)
[2024-07-21] MEDS: WITCH HAZEL 40 PADS 1 PAD TOPICAL (09:30)
[2024-07-21 09:49] LABS: Alanine Aminotransferase 12 U/L (6-35); Albumin Level 3.3 g/dL (3.5-5.1); Alkaline Phosphatase 226 U/L (38-126); Anion Gap 7 mmol/L (4-12); Aspartate Amino Transferase 16 U/L (14-36); Bilirubin,Total 0.3 mg/dL (0.2-1.3); Blood Urea Nitrogen 2 mg/dL (7-17); Calcium 8.4 mg/dL (8.4-10.2); Carbon Dioxide 15 mmol/L (22-30); Chloride 114 mmol/L (98-107); Estimated CRCL calculation 143 ml/min; Estimated Glomerular Filt Rate > 60; Glucose 92 mg/dL (65-110); Sodium 136 mmol/L (137-145)
--- NOTE | 2024-07-21 10:30 | OBPPTRN ---
Patient transferred to post room #287 via wheelchair. Support person present. Oriented to unit, room, information board, rooming in, admission packet and security measures. Patient verbalizes understanding.
[2024-07-21] MEDS: ACETAMINOPHEN 325 MG TABLET 650 MG PO ×2 (10:47→19:45)
[2024-07-21] MEDS: IBUPROFEN 600 MG TABLET PO ×2 (10:47→19:44)
[2024-07-21] MEDS: KCL 40 MEQ/0.45% NS 1,000 ML 250 ML IV CONT ×2 (13:41→17:55)
--- NOTE | 2024-07-21 21:45 | PC.NURSE ---
2142. IV not discontinued at this time. IV wrapped so pt could shower at this time.
[2024-07-22] MEDS: ACETAMINOPHEN 325 MG TABLET 650 MG PO ×2 (01:17→12:46)
[2024-07-22] MEDS: IBUPROFEN 600 MG TABLET PO ×3 (01:17→17:03)
[2024-07-22 04:23] LABS: Hematocrit 35.3 % (37.0-47.0); Hemoglobin 11.9 g/dL (12.0-15.0)
[2024-07-22 04:33] LABS: Alanine Aminotransferase 9 U/L (6-35); Albumin Level 2.6 g/dL (3.5-5.1); Alkaline Phosphatase 163 U/L (38-126); Anion Gap 4 mmol/L (4-12); Aspartate Amino Transferase 15 U/L (14-36); Bilirubin,Total 0.3 mg/dL (0.2-1.3); Blood Urea Nitrogen 3 mg/dL (7-17); Calcium 7.9 mg/dL (8.4-10.2); Carbon Dioxide 21 mmol/L (22-30); Chloride 110 mmol/L (98-107); Estimated CRCL calculation 143 ml/min; Estimated Glomerular Filt Rate > 60; Glucose 85 mg/dL (65-110); Potassium 3.1 mmol/L (3.4-5.0); Sodium 135 mmol/L (137-145)
[2024-07-22 08:00] VITALS: BP 102/58; PULSE 60; RESP 18; TEMP 36.1; O2SAT 100
[2024-07-22] MEDS: acetaZOLAMIDE TAB 250 MG TABLET PO (08:06)
[2024-07-22] MEDS: POTASSIUM CHLORIDE 20 MEQ ER TABLET PO ×2 (08:06→17:03)
[2024-07-22] MEDS: FERROUS SULFATE DRIED 142 MG TABCR PO (08:06)
[2024-07-22] MEDS: FLUoxetine HCL 20 MG CAPSULE PO (08:06)
[2024-07-22] MEDS: MULTIVIT/MIN/PREN/FOL AC/IRON TABLET 1 TAB PO (08:06)
--- NOTE | 2024-07-22 10:52 | PM.OBDSVD ---
DS: Admitting Diagnosis Discharge Date 07/23/2024 Admitting Diagnosis DS: Discharge Diagnosis Discharge Diagnosis (1) , delivered: Code(s): O80 - Encounter for full-term uncomplicated delivery Status: Acute OB - DS: Summary OB Procedures : None OB Procedures Intrapartum: Spontaneous Vag Delivery OB Procedures: : None Peripartum Data Laceration Description: None Episiotomy description: None Time Spent with Patient Time attestation: Total time spent providing and/or coordinating discharge services: DS: Data Data Completed and Pending Labs on day of discharge: Labs from last 24 hours 07/22/24 04:10 Hgb 11.9 L Hct 35.3 L Sodium 135 L Potassium 3.1 L Chloride 110 H Carbon Dioxide 21 L Anion Gap 4 BUN 3 L Creatinine 0.40 L Estim Creat Clear Calc 143 Estimated GFR > 60 Glucose 85 Calcium 7.9 L Total Bilirubin 0.3 AST 15 ALT 9 Alkaline Phosphatase 163 H Total Protein 5.0 L Albumin 2.6 L Discharge Plan Discharge Discharging Clinician: Elvis Vital Patient Disposition: Home, Self-Care Activity: as tolerated Diet: as tolerated Patient Instructions: Antibiotic Form Stand Alone Forms: General Discharge Information Follow-up/Referrals: Elvis Vital MD [Physician] - 3 Weeks Discharge Medications: New potassium chloride [K-Tab] 20 mEq Tablet Extended Release 20 meq PO BID Qty: 60 1RF ibuprofen 600 mg Tablet 600 mg PO Q6H PRN (Reason: Cramping) Qty: 30 0RF Continued iron, carbonyl [Feosol] 45 mg Tablet 45 mg PO DAILY Patient Comments: Patient is unsure of dose but uses an OTC iron supplement fluoxetine [Prozac] 20 mg capsule 20 mg PO DAILY Qty: 90 3RF clonazepam 1 mg tablet 1 mg PO PRN acetazolamide 250 mg tablet See Rx Instructions .ROUTE .COMPLEX Qty: 60 3RF Dose Instruction: TAKE 1 TABLET(250 MG) BY MOUTH TWICE DAILY Rx Instructions: TAKE 1 TABLET(250 MG) BY MOUTH TWICE DAILY potassium chloride 20 mEq tablet,ER particles/crystals 20 meq PO DAILY Qty: 60 0RF ondansetron 4 mg tablet,disintegrating 4 mg PO Q6H PRN (Reason: nausea and vomiting) Qty: 30 0RF Date of admission: 07/21/24 06:45 Primary Care Provider: Shailesh,Gunner Lynen Admitting Provider: Elvis Vital Attending physician on admission: Elvis Vital Condition: Stable
[2024-07-22] MEDS: DOCUSATE SODIUM 100 MG CAPSULE PO ×2 (12:46→17:03)
[2024-07-22] MEDS: clonazePAM (*CRX) 0.25 MG TABLET 1 MG PO (17:03)
[2024-07-22] MEDS: HYDROcodone/acetaminophen (*CRX) 5-325 MG TABLET 1 TAB PO (18:44)
[2024-07-23] MEDS: ACETAMINOPHEN 325 MG TABLET 650 MG PO ×2 (00:12→05:25)
[2024-07-23] MEDS: IBUPROFEN 600 MG TABLET PO ×2 (00:13→05:25)
[2024-07-23 07:55] VITALS: BP 98/60; PULSE 76; RESP 16; TEMP 36.9; O2SAT 99
[2024-07-23] MEDS: MULTIVIT/MIN/PREN/FOL AC/IRON TABLET 1 TAB PO (08:05)
[2024-07-23] MEDS: POTASSIUM CHLORIDE 20 MEQ ER TABLET PO (08:05)
--- NOTE | 2024-07-23 09:05 | PC.NURSE ---
Introductions were made, then consulted with patient to assess needs related to . Discussed with mother her?plans to feed?her and the?experience so far. Resources provided for inpatient and outpatient services with the feeding sheet, mom/baby guide and name/number written on the communication board. Mother voiced understanding of information and will call if there is a request for assistance. Reported to the Primary RN.
[2024-07-25 10:59] VITALS: BP 108/67; PULSE 91; RESP 16; TEMP 36.6; O2SAT 100
== END 2024-07-23 10:49 | disposition home or self-care (01) | DRG 560 ==
LOC: ANHLDR 06:52 → ANHOB2 10:39
PROVIDERS: Admitting Provider Obstetrics & Gynecology; PCP Physician Assistant; Visit Provider Obstetrics & Gynecology
DX: O62.3 Precipitate labor (principal); Z37.0 Single live birth; Z3A.37 37 weeks gestation of pregnancy
CPT/HCPCS: 36415; 80053; 85014; 85018; 85025; 86592; 86703; 86850; 86900; 86901; A9270; G0432; J2590; J2795; J3010; J7120

== ENCOUNTER 2024-10-24 08:59 | Emergency (ER) | payer OTHER, SELFPAY ==
[2024-10-24 09:09] VITALS: BP 111/69; PULSE 80; RESP 16; TEMP 35.9; O2SAT 100
--- NOTE | 2024-10-24 09:16 | ED_ITS ---
HPI - General Adult General Chief complaint: Abdominal Pain Stated complaint: Chest/Right Side Pain Time Seen by Provider: 10/24/24 09:21 Source: patient Mode of arrival: ambulatory Limitations: no limitations History of Present Illness HPI narrative: 24 year old female presents with concern for right-sided chest pain. She reports pain goes from the front of her chest through to her back. Reports that radiates down the side of her chest. She reports pain worsens with deep breathing, coughing. Reports she feels short of breath when the pain is bad. She reports she has had nausea and vomiting as well. Patient is 8 weeks vaginal delivery. She denies any vaginal bleeding, vaginal discharge. She denies dysuria, frequency, urgency. She denies headaches. MD complaint: Chest pain Related Data Home Medications ?Medication ?Instructions ?Recorded ?Confirmed ?Last Taken ?Type clonazepam 1 mg tablet 1 mg PO PRN 11/08/23 09/05/24 Unknown History aripiprazole 2 mg tablet mg 10/24/24 Unknown History clonazepam 0.5 mg tablet mg 10/24/24 Unknown History ferrous sulfate 325 mg (65 mg mg 10/24/24 Unknown History iron) tablet (FeroSul) fluoxetine 60 mg tablet mg 10/24/24 Unknown History hydroxyzine HCl 25 mg tablet mg 10/24/24 Unknown History norethindrone (contraceptive) 0.35 mg 10/24/24 Unknown History mg tablet quetiapine 25 mg tablet mg 10/24/24 Unknown History Allergies Allergy/AdvReac Type Severity Reaction Status Date / Time No Known Allergies Allergy Verified 10/24/24 09:17 Review of Systems Review of Systems: CONSTITUTIONAL: Reports malaise, chills, sweats CARDIOVASCULAR: Reports right-sided chest pain. Denies palpitations or edema. RESPIRATORY: Denies cough. Reports dyspnea. GASTROINTESTINAL: Denies abdominal pain, diarrhea, bloody, or mucous stools. Reports nausea vomiting GENITOURINARY: Denies dysuria or hematuria. SKIN: Denies rash or itching. MUSCULOSKELETAL: Reports right upper back pain NEUROLOGIC: Denies numbness, weakness, or headache. All systems reviewed & are unremarkable except as noted in HPI and below PMFSH Past Medical History Medical History Chronic daily headache Irregular bleeding Fracture of left wrist Fracture of right elbow Intracranial hypertension Idiopathic History of low potassium Anxiety and depression Surgical History Surgical History H/O endoscopic sinus surgery History of gynecological procedure (06/20/19) nexplanon insertion History of gynecological procedure (07/23/19) colposcopy History of gynecological procedure (03/06/20) nexplanon removal Family History Family History Grandparent Hypothyroidism Social History Social History (Updated 09/05/24 @ 13:49 by LOS Cabral) Smoking status: Former smoker Tobacco type: e-cigarettes/vaping Second hand tobacco smoke exposure: No Smoking end date: 08/15/20 Alcohol intake: never Substance use: never Substance use type: does not use Do You Feel Safe in your Home?: Yes Lack of Transportation: No Lack of Food: Never True Current Housing: Decline to Answer Concerned About Future Housing: Decline to Answer Difficulty Paying Gas/Electric Bills: Decline to Answer Difficulty Paying for Meds: Decline to Answer Currently Unemployed: Decline to Answer Education: Decline to Answer Difficulty w/ Childcare or Family Care: Decline to Answer Living arrangements: with family Additional living arrangements comments: Occupation/Education: other 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 There is no relevant family history pertinent to the presenting complaint Exam Narrative: GENERAL: Nontoxic-appearing, well-nourished, and in no acute distress. HEAD: Normocephalic, atraumatic. EYES: PERRLA, sclera clear ENT: Nares clear. Mucous membranes moist. NECK: Supple. CHEST: No respiratory distress. Clear to auscultation. No bony deformities, no asymmetry. Speaks in full sentences. HEART: Regular rate and rhythm. No murmur heard. Normal peripheral pulses. ABDOMEN: Soft, generalized tenderness, nondistended, normal active bowel sounds, no palpable masses. EXTREMITIES: Normal range of motion. SKIN: Warm, dry, no visible rash. NEURO: Alert and oriented x3. PSYCH: Normal mood and affect Course Course Emergency Course: Patient is aware of, understands and agrees to be seen in the emergency room. Patient agrees to proceed directly to the emergency department. Portions of this record may have been created with voice recognition software Level of Care: Express Care Visit Vital Signs Vital signs: Vital Signs Temperature 96.7 F L 10/24/24 09:09 Pulse Rate 80 10/24/24 09:09 Respiratory Rate 16 10/24/24 09:09 Blood Pressure 111/69 10/24/24 09:09 Pulse Oximetry 100 10/24/24 09:09 Temperature 96.7 F L 10/24/24 09:09 Pulse Rate 80 10/24/24 09:09 Respiratory Rate 16 10/24/24 09:09 Blood Pressure 111/69 10/24/24 09:09 Pulse Oximetry 100 10/24/24 09:09 Reviewed. Transfer Transfered to: [facility] Transportation: Other (Private vehicle) Transfer rationale: Chest pain, Accepting physician: Jimmy Medical Decision Making MDM Narrative Medical decision making narrative: Patient is nontoxic appearing and in no acute distress Vital Signs Vital Signs: Vital Signs Temperature 96.7 F L 10/24/24 09:09 Pulse Rate 80 10/24/24 09:09 Respiratory Rate 16 10/24/24 09:09 Blood Pressure 111/69 10/24/24 09:09 Pulse Oximetry 100 10/24/24 09:09 Temperature 96.7 F L 10/24/24 09:09 Pulse Rate 80 10/24/24 09:09 Respiratory Rate 16 10/24/24 09:09 Blood Pressure 111/69 10/24/24 09:09 Pulse Oximetry 100 10/24/24 09:09 Critical Care Time Critical Care Time Critical Care Time: No Discharge Plan Discharge Clinical Impression: Chest pain Patient Disposition: Acute Care Hospital Condition: Stable Patient Language: Albanian Prescriptions: No Action iron, carbonyl [Feosol] 45 mg Tablet 45 mg PO DAILY Patient Comments: Patient is unsure of dose but uses an OTC iron supplement clonazepam 1 mg tablet 1 mg PO PRN potassium chloride [K-Tab] 20 mEq Tablet Extended Release 20 meq PO BID Qty: 60 1RF ibuprofen 600 mg Tablet 600 mg PO Q6H PRN (Reason: Cramping) Qty: 30 0RF acetazolamide 250 mg tablet See Rx Instructions .ROUTE .COMPLEX Qty: 60 3RF Dose Instruction: TAKE 1 TABLET(250 MG) BY MOUTH TWICE DAILY Rx Instructions: TAKE 1 TABLET(250 MG) BY MOUTH TWICE DAILY ondansetron 4 mg tablet,disintegrating 4 mg PO Q6H PRN (Reason: nausea and vomiting) Qty: 30 0RF potassium chloride 20 mEq tablet,ER particles/crystals 20 meq PO DAILY Qty: 60 0RF fluoxetine 40 mg capsule 40 mg PO DAILY Qty: 30 0RF drospirenone-ethinyl estradiol [SHANE (28)] 3-0.02 mg tablet 1 tablet PO DAILY Qty: 84 3RF Follow-up/Referrals: Shailesh,EDUAR Bradley [Primary Care Provider] - Time of Disposition: 09:37
== END 2024-10-24 09:35 | disposition short-term general hospital (02) ==
PROVIDERS: Emergency Provider Nurse Practitioner; PCP Physician Assistant
DX: R07.9 Chest pain, unspecified (principal); Z87.891 Personal history of nicotine dependence; F41.9 Anxiety disorder, unspecified; F32.A Depression, unspecified; G93.2 Benign intracranial hypertension
CPT/HCPCS: 99212; G0463

== ENCOUNTER 2024-10-24 09:59 | Emergency (ER) | payer OTHER, SELFPAY ==
--- NOTE | ~2024-10-24 | XR_ITS ---
EXAMINATION: XR chest 2V DATE: 10/24/2024 10:52 INDICATION: Chest pain. TECHNIQUE: Frontal and lateral views of the chest were obtained. COMPARISON: Chest 2 views 03/29/2009 FINDINGS: There is no pneumonia, pleural effusion, or pneumothorax. The heart size is normal. IMPRESSION: 1. No acute cardiopulmonary disease. Reviewed, dictated and finalized at location B.
--- NOTE | ~2024-10-24 | US_ITS ---
EXAMINATION: US abdomen limited DATE: 10/24/2024 13:31 INDICATION: Right upper quadrant abdominal pain. TECHNIQUE: Multiple grayscale and Doppler ultrasound images of the abdomen were obtained. COMPARISON: CT abdomen and pelvis 10/24/2024 FINDINGS: The visualized portions of the head, body, and tail of the pancreas are normal. The liver i s normal without focal lesion. There is normal flow in main portal vein. The gallbladder is normal in size and contains sludge. No gallstones or gallbladder wall thickening. There is no sonographic Murp hy's sign. The common duct is normal and measures 4 mm. IMPRESSION: 1. No etiology for the patient's symptoms. Reviewed, dictated and finalized at location B.
--- NOTE | ~2024-10-24 | CT_ITS ---
CLINICAL INDICATION: Right upper quadrant pain COMPARISON: None. TECHNIQUE: Multiple contiguous axial images of the abdomen and pelvis were performed following the ad ministration of with 100 mL Omnipaque-350 intravenous contrast The dose-length product (DLP) was 219.56 mGy-cm. Automated exposure control and iterative reconstruction technique were employed. FINDINGS/OBSERVATIONS: Visualized lower thorax: The bilateral lung bases are clear. The heart is of normal size, without pericardial effusion. Small hiatal hernia is present. Liver: The liver demonstrates homogeneous enhancement and is not enlarged measuring 17 cm in longitudinal di mension. Gallbladder and biliary system: The gallbladder is only minimally distended, and otherwise unremarkable. Pancreas: The pancreas enhances homogeneously without ductal dilatation. Spleen: The spleen enhances homogeneously and is not enlarged measuring 8 cm in longitudinal dimension. Kidneys: 15 mm rounded area of decreased attenuation within the interpolar region of the left kidney. The remainder of the bilateral kidneys otherwise enhance symmetrically without hydronephrosis or teresita l calculi. Adrenal glands: Unremarkable. Gastrointestinal tract: Colonic diverticulosis without surrounding inflammatory change. Appendix: The air-filled appendix is of normal caliber (axial series, images 101 through 112) Vasculature: Unremarkable. Lymph nodes: No pathologically enlarged or morphologically suspicious lymph nodes within the retroperitoneum or at the root of the mesentery. Pelvic structures: The bladder is decompressed, and otherwise unremarkable. The uterus is retroverted and retroflexed Body wall and musculoskeletal: Small fat-containing umbilical hernia. No significant degenerative disease within the lower thoracic or lumbosacral spine. IMPRESSION: No acute pathology appreciated within the abdomen or pelvis, as detailed above. Reviewed, dictated and finalized at location A.
[2024-10-24 10:04] VITALS: BP 110/62; PULSE 77; RESP 16; TEMP 36.4; O2SAT 100
--- NOTE | 2024-10-24 10:26 | ECG_ITS ---
Test Date: 2024-10-24 10:31:32 Measurements Intervals [place] Rate: 77 P: 31 MD: 116 QRS: 75 QRSD: 86 T: 36 QT: 358 QTc: 405 Interpretive Statements SINUS RHYTHM WITH SHORT MD INTERVAL MINIMAL ST DEPRESSION [0.025+ mV ST DEPRESSION] No previous ECG available for comparison Electronically Signed On 10-25-2024 13:50:49 CDT by Nick Saini M.D.
[2024-10-24 10:31] VITALS: O2SAT 100
[2024-10-24 10:39] LABS: Basophils Absolute Auto 0.1 K/mm3 (0.0-0.1); Eosinophils Absolute Auto 0.1 K/mm3 (0-0.3); Hematocrit 40.9 % (37.0-47.0); Hemoglobin 13.4 g/dL (12.0-15.0); Immature Granulocyte Absolute 0.02 K/mm3 (0.00-0.031); Immature Granulocyte Percent A 0.3 % (0-0.5); Lymphocytes Absolute Auto 1.12 K/mm3 (0.9-3.2); Lymphocytes Percent Auto 15.6 % (18.3-44.2); Mean Corpuscular HGB Conc 32.8 g/dl (32-36); Mean Corpuscular Hemoglobin 32.1 pg (26-34); Mean Corpuscular Volume 97.8 fl (80-100); Mean Platelet Volume 10.3 fl (7.4-10.4); Monocytes Absolute Auto 0.4 K/mm3 (0.1-0.6); Monocytes Percent Auto 6.1 % (2.6-8.5); Neutrophils Absolute Auto 5.5 K/mm3 (1.3-6.7); Platelet Count Result 316 k/mm3 (150-375); Red Blood Count 4.18 M/mm3 (4.2-5.4); Red Cell Distribution Width 13.5 % (11.5-14.5); White Blood Count 7.2 K/mm3 (4.5-10.0)
[2024-10-24 10:52] LABS: Alanine Aminotransferase 23 U/L (6-35); Albumin Level 4.6 g/dL (3.5-5.1); Alkaline Phosphatase 52 U/L (38-126); Anion Gap 13 mmol/L (4-12); Aspartate Amino Transferase 22 U/L (14-36); Bilirubin,Total 0.8 mg/dL (0.2-1.3); Blood Urea Nitrogen 11 mg/dL (7-17); Calcium 9.2 mg/dL (8.4-10.2); Carbon Dioxide 18 mmol/L (22-30); Chloride 108 mmol/L (98-107); Estimated CRCL calculation 84 ml/min; Estimated Glomerular Filt Rate > 60; Glucose 88 mg/dL (65-110); Lipase 58 U/L (23-300); Potassium 3.4 mmol/L (3.4-5.0); Sodium 139 mmol/L (137-145)
[2024-10-24 10:56] LABS: Prothrombin Time 13.3 Seconds (11.1-14.7)
[2024-10-24 10:57] LABS: Partial Thromboplastin Time 24.2 Seconds (22.3-36.8)
--- OUTSIDE RECORDS SUMMARY | 2024-10-24 11:00 | XMS_ITS | Clinical Summary ---
Author Organization [facility] Care Team Providers Care Intensive Care Unit Registered Nurse Name Role Phone Unavailable Primary Care Provider Unavailabl e Social History Tobacco Use Types Packs/Day Years Used Date Smoking Tobacco: Never Assessed Comments Unknown Sex and Gender Information Value Date Recorded Sex Assigned at Not on file Legal Sex Female 11:43 AM [employer] Gender Identity Not on file Sexual Orientation Not on file Plan of Treatment Health Maintenance Due Date Last Done Comments Hepatitis C Virus (HCV) Screening 1998 TdaP Immunization 1998 Human Papillomavirus (HPV) Immunization (1 - 3-dose series) 2013 Hepatitis B Immunization (1 of 3 - 19+ 3-dose series) 2017 Pap Smear 2019 Influenza Immunization (#1) 2024 SARS-COV-2 Immunization ( season) 2024 Respiratory Syncytial Virus (RSV) Immunization (Adult) (1 - 1-dose 75+ series) 2073 Meningococcal Immunization (ACWY) Aged Out No longer eligible based on patient's age to complete this topic Pneumococcal Immunization Combined Aged Out No longer eligible based on patient's age to complete this topic Rotavirus Immunization Aged Out No lo nger eligible based on patient's age to complete this topic
--- OUTSIDE RECORDS SUMMARY | 2024-10-24 11:01 | XMS_ITS | Data Portability ---
Author Organization [facility], Main Office Address [address] [place] [address] Assessment No assessment recorded. Plan of Treatment Reminders Order Date Submit Date Provider Last Modified By Organization Details Last Modified Time Details Appointments None recorded. Lab CBC w/ auto diff 2023 024 [facility], [address] [place], [address], 4 19:52:24 CMP, serum or plasma [address], [address] [place], [address], 4 08:05:43 lipid panel, serum [address], [address] [place], [address], 4 08:05:44 CBC w/ auto diff 2022 023 [facility] (Lab), [address] [place], [address], 3 14:55:24 CMP, serum or plasma 2022 023 [facility] (Lab), [address] [place], [address], 3 14:55:24 lipid panel, serum 2022 023 [email or web address] [facility] (Lab), [address] [place], [address], 4 16:18:42 TSH + free T4, serum 2022 023 [email or web address] [facility] (Lab), [address] [place], [address], 3 14:55:24 HbA1c (hemoglobi n A1c), blood 2022 023 [email or web address] [facility] (Lab), [address] [facility] [place], [address], 4 16:18:42 Referral neurologis t referral 2022 023 [email or web address] [place], [address], [place], [address], 4 09:41:19 neuro-opht halmologis t referral 2022 023 [email or web address] Dafne Martinez, [address], [place], [address], 4 09:01:19 Procedures None recorded. Surgeries None recorded. Imaging None recorded. Medication Orders amoxicilli n 500 mg capsule 2023 024 [facility], [address] [place], [place], [id number], 4 14:28:05 fluconazol e 150 mg tablet 2023 024 N[facility] #98043, [address] [place], [place], [id number], 4 14:29:02 Klor-Con M20 mEq tablet,ext ended release 2022 023 [email or web address] 00 [facility]69311, [address] [place], [place], [id number], 14:49:03 clonazepam 1 mg tablet 2022 023 [email or web address] [facility], [address], [place], [place], [id number], 10:04:06 Patient TargetsNo targets recorded. Patient Instructions Encounter Date Encounter Id Patient Instructions Last Modified By Organization Details Last Modified Time 02/24/2023 [id number] she keeps a gratitude jar . 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 I advised writing out thoughts and shredding, get book finding your strength in difficult times.; get waldo headspace [email or web address] Not available 02/25/2023 14:43:08 07/18/2023 [id number] [facility] samples [email or web address] Not availab le 07/18/2023 14:36:19 03/21/2024 [id number] she said her ob gives fluconazole when she is , I advised she get their approval before taking still [email or web address] Not available 03/21/2024 14:33:33 Reason for Referral Neurologist Referral for His tory of idiopathic intracranial hypertension Referring Physician: [facility], Encounter Date: 07/18/2023 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 1 Not Available [facility] (Lab) [address] [place], [address], 09/14/2022 13:10:39 09/14/19 23 09/14/2022 BASIC METAB OLIC PANEL chloride 105 mmol/ L 98-107 Not Available [facility] (Lab) [address] [place], [address], 09/14/2022 13:10:39 09/14/19 23 09/14/2022 BASIC METAB OLIC PANEL carbon dioxide 22 mmol/ L 22-30 Not Available [facility] (Lab) [address] [place], [address], 09/14/2022 13:10:39 09/14/19 23 09/14/2022 BASIC METAB OLIC PANEL anion gap 16.5 mmol/ L 14-22 Not Available [facility] (Lab) [address] [place], [address], 09/14/2022 13:10:39 09/14/19 23 09/14/2022 BASIC METAB OLIC PANEL glucose 99 mg/dL 70-99 Not Available [facility] (Lab) [address] [place], [address], 09/14/2022 13:10:39 09/14/19 23 09/14/2022 BASIC METAB OLIC PANEL BUN 12 mg/dL 8-19 Not Available [facility] (Lab) [address] [place], [address], 09/14/2022 13:10:39 09/14/19 23 09/14/2022 BASIC METAB OLIC PANEL creatinine 0.72 mg/dL 0.66-1 .25 Not Available [facility] (Lab) [address] [place], [address], 09/14/2022 13:10:39 09/14/19 23 09/14/2022 BASIC METAB OLIC PANEL GFR >60 Refer ence Range : [place] [facility] GFR Healt hy Adult : >60 mL/mi n/1.7 3 m2 Chron ic Kidne y Disea se: 15-60 mL/mi n/1.7 3 m2 Kidne y Failu re: <15/m L/min /1.73 m2 www.n iddk. nih.g ov The MDRD study equat ion has not been valid ated in child darlyn <18 years of age; pregn ant women ; the elder ly >85 years of age; or in some racia l or ethni c subgr oups, such as Hispa nics. Outsi de the valid ated dav eters , estim ated GFR is less accur ate, requi ring clini jazmyne judgm ent on a case- by-ca se basis . Clini jazmyne inter preta tion for other races and ages must be made by the clini ana. The MDRD study equat ion has not been valid ated for the evalu ation of serum creat inine relat ed to nutri stevenson l statu s or medic ation usage . For perso ns <18 years of age, a pedia tric GFR calcu lator is avail able on the [facility] websi te: https ://mikki w.pranav li.o rg/pr ofess ional s/kdo qi/gf r_cal culat or Not Available [facility] (Lab) [address] [place], [address], 09/14/2022 13:10:39 09/14/19 23 09/14/2022 BASIC METAB OLIC PANEL calcium 10.1 mg/dL 8.4-10 .2 Not Available [facility] (Lab) [address] [place], [address], 09/14/2022 13:10:39 09/14/19 23 XR, knee, 3 view [facility] [address] [place] [address] Patien t Name: SHANE SINGLETON Access ion #: [id number] Sex: F : 1999 2 Locati on: [place]2 Attend ing Physic ashwini: DARLYN SAMPSON Orderi ng Physic ashwini: RICARDO DANIELS, RUNDA Exam Date: 023 11:00 AM Exam Name: XR KNEE RT 3V Admitt ing Diagno sis(es ): RADIOL OGY REPORT - FINAL EXAM: XR KNEE RT 3V HISTOR Y: PAIN 22-yea r-old female with chroni c right knee pain, no known injury . COMPAR MATTHEW: Radiog raphs dated 2016. TECHNI QUE: 3 views of the right knee were perfor med. FINDIN GS: No acute fractu re is identi fied about the right knee. No signif icant joint space narrow ing. There may be a small joint effusi on. IMPRES DEVENDRA: No fractu re or signif icant degene rative change s about the right knee. Page 1 of 2 [facility] Kat t Name: SHANE SINGLETON Access ion #: [id number] Sex: F : 1999 2 Exam Date: 023 11:00 AM Exam Name: XR KNEE RT 3V Admitt ing Diagno sis(es ): Create d and electr onical ly signed by: Rolando godoy MD Signed Date: 11:34 AM (CT) Dictat ed by: Rolando godoy MD DD: 023 11:34 AM (CT) DT: 023 11:34 AM (CT) Page 2 of 2 [id number] [facility] (Imaging) [address] [place], [address], 10/14/2022 01:49:29 09/14/19 23 09/14/2022 XR, knee, 3 view No observ ation record ed. [id number] [facility] [address] [place] [address] , [place], [address], 10/14/2022 01:49:29 09/14/19 23 XR, knee, 3 view [facility] [address] [place] [address] [phone] Patiflaquita t Name: SHANE SINGLETON Access ion #: [id number] Sex: F : 1999 2 Locati on: [place]2 Attend ing Physic ashwini: ELKHAT IB, RUNDA Orderi ng Physic ashwini: ELKHAT IB, RUNDA Exam Date: 023 11:00 AM Exam Name: XR KNEE LT 3V Admitt ing Diagno sis(es ): RADIOL OGY REPORT - FINAL EXAM: XR KNEE LT 3V HISTOR Y: PAIN 22-yea r-old female with chroni c left knee pain, no known injury . COMPAR MATTHEW: None availa ble. TECHNI QUE: 3 views of the left knee were perfor med. FINDIN GS: No acute fractu re is identi fied about the left knee. No signif icant joint space narrow ing. There may be a small joint effusi on. IMPRES DEVENDRA: No fractu re or signif icant degene rative change s about the left knee. Page 1 of 2 [facility] Patiflaquita t Name: SHANE SINGLETON Access ion #: [id number] Sex: F : 1999 2 Exam Date: 023 11:00 AM Exam Name: XR KNEE LT 3V Admitt ing Diagno sis(es ): Create d and electr onical ly signed by: Rolando godoy MD Signed Date: 023 11:35 AM (CT) Dictat ed by: Rolando godoy MD DD: 023 11:35 AM (CT) DT: 023 11:35 AM (CT) Page 2 of 2 [id number] [facility] (Imaging) [address] [place], [address], 10/14/2022 01:49:29 09/14/19 23 09/14/2022 XR, knee, 3 view No observ ation record ed. [id number] [facility] [address] [place] [address] , [place], [address], 10/14/2022 01:49:29 09/14/19 23 XR, hip, unila teral , 2 or 3 view [facility] [address] [facility] [place] [address] [phone] Patiflaquita t Name: SHANE SINGLETON Access ion #: [id number] Sex: F : 1999 2 Locati on: [place]2 Attend ing Physic ashwini: ELKHAT IB, RUNDA Orderi ng Physic ashwini: ELKHAT IB, RUNDA Exam Date: 11:00 AM Exam Name: XR HIP/PE LVIS RT 2-3V Admitt ing Diagno sis(es ): RADIOL OGY REPORT - FINAL EXAM: XR HIP/PE LVIS RT 2-3V HISTOR Y: PAIN 22-yea r-old female with right hip pain, no known injury . COMPAR MATTHEW: None availa ble. TECHNI QUE: AP and frogle g latera l views of the right hip were perfor med. FINDIN GS: No acute fractu re is identi fied about the right hip. No signif icant joint space narrow ing or degene rative change s. IMPRES DEVENDRA: Unrema rkable radiog raphs of the right hip. Page 1 of 2 [facility] Kat t Name: SHANE SINGLETON Access ion #: [id number] Sex: F : 1999 2 Exam Date: 023 11:00 AM Exam Name: XR HIP/PE LVIS RT 2-3V Admitt ing Diagno sis(es ): Create d and electr onical ly signed by: Rolando godoy MD Signed Date: 11:35 AM (CT) Dictat ed by: Rolando godoy MD DD: 11:35 AM (CT) DT: 11:35 AM (CT) Page 2 of 2 [facility].[id number] [facility] (Imaging) [address] [facility], [place], [address], 10/14/2022 01:49:29 09/14/19 23 09/14/2022 XR, knee, 3 view No observ ation record ed. [id number] [facility], [place], [address], 10/14/2022 01:49:29 09/30/19 XR, knee, 3 view No observ ation record ed. [id number] [email or web address] [place] [address] [facility] [address], [place], [address], 10/14/2022 01:49:29 06/29/20 23 06/29/2023 XR, sacru m + coccy x, 2 or more view No observ ation record ed. [address], [place], [address], 06/29/2023 16:41:06 06/29/20 23 06/29/2023 XR, thora cic spine , 3 view No observ ation record ed. [address], [place], [address], 06/29/2023 16:42:17 07/23/20 24 07/20/2024 US, obste tric No observ ation record ed. [email or web address], [place], [address], 08/03/2024 09:03:14 Result Notes None recorded. Problems Name Problem SNOMED Code Status Onset Date Resolution Date Notes Provider Name and Address Organization Details Recorded Time History of idiopathic intracrani al hypertensi on 3538619284660 9108 Active 2022 Not Available [facility] 3 01:48:50 Patellofem oral stress syndrome 657799138 Active 2022 Not Available [facility] 3 01:48:50 Patellofem oral stress syndrome 270085056 Active 2022 Not Available [facility] 3 01:48:50 Chronic hypokalemi a 79668127 Active 2022 Darlyn Wills MD [address], [place], [address] , [facility] [employer] [facility] 3 19:37:37 Anxiety 03678370 Active 2022 EDUAR Nash [address], [place], [address] , [employer] 3 13:16:00 Dental abscess 085862432 Active 2023 EDUAR Nash [address], [address], [place], [address] , [employer] [facility] 4 14:25:29 Adult health examinatio n Active 2023 EDUAR Nash [address], [address], [place], [address] , [employer] 4 14:32:20 07677920 Active 2023 EDUAR Nash [address], [address], [place], [address] , [employer] [facility] 4 17:26:43 Anemia 536182296 Active 2023 EDUAR Nash [address], [place], [address] , [employer] [facility] 4 12:14:19 Problem Notes None recorded. Procedures Surgical History Date Name Laterality Status Provider Name and Address Organization Details Recorded Time Sinus Surgery completed Not Available [facility] 10/14/2022 01:48:26 Imaging Results Imaging Date Name Status LastModified by Organiz ation Details LastModified Time 09/30/2022 XR, knee, 3 view completed [id number] [email or web address] [place] [address], [place], [address], 10/14/2022 01:49:29 09/14/2022 XR, knee, 3 view completed [id number] [facility] (Imaging) [address] [place], [address], 10/14/2022 01:49:29 09/14/2022 XR, knee, 3 view completed [id number] 026 [facility] [address] , [place], [address], 10/14/2022 01:49:29 09/14/2022 XR, knee, 3 view completed [id number] [facility] (Imaging) [address] [place], [address], 10/14/2022 01:49:29 09/14/2022 XR, knee, 3 view completed [id number] [address] [place], [address], 10/14/2022 01:49:29 09/14/2022 XR, hip, unilateral, 2 or 3 view completed [id number] [facility] (Imaging) [address] [place], [address], 10/14/2022 01:49:29 09/14/2022 XR, knee, 3 view completed [id number] [address] [place], [address], 10/14/2022 01:49:29 06/29/2023 XR, sacrum + coccyx, 2 or more view completed [address], [address], 06/29/2023 16:41:06 06/29/2023 XR, thoracic spine, 3 view completed [address], [address], 06/29/2023 16:42:17 07/20/2024 US, obstetric completed [place] [address], [place], [address], 08/03/2024 09:03:14 Procedure Notes None recorded. Medical Equipment None Reported. Allergies No known drug allergies Medications Name Sig Start Date Stop Date Status Note LastModified by Organization Details LastModified Time quetiapin e 25 mg tablet TAKE 1 TABLET BY MOUTH EVERY DAY active Not Available Not Available No t Available amoxicill in 500 mg capsule TAKE 1 CAPSULE BY MOUTH EVERY 8 HOURS FOR 10 DAYS active Not Available Not Available No t Available dicloxaci llin 500 mg capsule TAKE 1 CAPSULE BY MOUTH EVERY 6 HOURS FOR 10 DAYS 03/21 completed Not Available Not Available Not Available venlafaxi ne ER 75 mg capsule,e xtended release 24 hr TAKE 1 CAPSULE BY MOUTH EVERY DAY WITH FOOD 09/14 completed Not Available Not Available Not Available azithromy juany 250 mg tablet TAKE 2 TABLETS BY MOUTH FOR 1 DAY THEN TAKE 1 TABLET BY MOUTH DAILY FOR 4 DAYS 09/14 completed Not Available Not Available Not Available fluconazo le 150 mg tablet TAKE 1 TABLET BY MOUTH NOW. REPEAT IN 7 DAYS IF SYMPTOMS PERSIST active Not Available Not Available No t Available fluconazo le 200 mg tablet TAKE 1 TABLET BY MOUTH EVERY 72 HOURS 03/21 completed Not Available Not Available Not Available metronida zole 0.75 % (37.5 mg/5 gram) vaginal gel INSERT 1 APPLICAT ORFUL VAGINALL Y EVERY DAY AT BEDTIME FOR 5 DAYS 03/21 completed Not Available Not Available Not Available ondansetr on HCl 4 mg tablet TAKE 1 TABLET BY MOUTH EVERY 6 HOURS active Not Available Not Available No t Available clonazepa m 0.5 mg tablet TAKE 1 TABLET BY MOUTH TWICE DAILY NEEDED active Not Available Not Available No t Available sertralin e 100 mg tablet TAKE 1 TABLET BY MOUTH EVERY DAY 09/14 completed Not Available Not Available Not Available clonazepa m 1 mg tablet TAKE 1 TABLET BY MOUTH TWICE DAILY NEEDED active Not Available Not Available No t Available acetazola mide 250 mg tablet TAKE 1 TABLET BY MOUTH TWICE DAILY active Not Available Not Available No t Available metronida zole 500 mg tablet TAKE 1 TABLET BY MOUTH EVERY 12 HOURS 03/21 completed Not Available Not Available Not Available nifedipin e ER 30 mg tablet,ex tended release TAKE 1 TABLET BY MOUTH DAILY 09/14 completed Not Available Not Available Not Available doxepin 10 mg capsule TAKE 1 CAPSULE BY MOUTH THREE TIMES DAILY DIRECTED 09/14 completed Not Available Not Available Not Available sulfameth oxazole 800 mg-trimet hoprim 160 mg tablet TAKE 1 TABLET BY MOUTH TWICE DAILY FOR 10 DAYS 03/21 completed Not Available Not Available Not Available triamcino lone acetonide 0.1 % topical cream APPLY TOPICALL Y TO THE AFFECTED AREA TWICE DAILY NEEDED FOR VULVAR ITCHING 03/21 completed Not Available Not Available Not Available lamotrigi ne 25 mg tablet 09/14 completed Not Available Not Available Not Available potassium chloride 20 mEq/15 mL oral liquid active Not Available Not Available Not Available amoxicill in 875 mg tablet TAKE 1 TABLET BY MOUTH EVERY 12 HOURS FOR 7 DAYS 03/21 completed Not Available Not Available Not Available potassium chloride ER 20 mEq tablet,ex tended release(p art/cryst ) TAKE 1 TABLET BY MOUTH EVERY DAY active Not Available Not Available No t Available amitripty line 25 mg tablet TAKE 1 TABLET BY MOUTH EVERY DAY AT BEDTIME 09/14 completed Not Available Not Available Not Available Kenalog 10 mg/mL suspensio n for injection In office injectio n administ ered by the provider active [facility]: 0003-049 12-02 Not Available Not Available Not Available paroxetin e 20 mg tablet TAKE 1 TABLET BY MOUTH EVERY DAY AT BEDTIME 09/14 completed Not Available Not Available Not Available hydroxyzi ne HCl 25 mg tablet TAKE 1 TABLET BY MOUTH EVERY DAY NEEDED FOR SLEEP active Not Available Not Available No t Available ibuprofen 600 mg tablet TAKE 1 TABLET BY MOUTH EVERY 6 HOURS NEEDED FOR CRAMPING 09/14 completed Not Available Not Available Not Available albuterol sulfate HFA 90 mcg/actua tion aerosol inhaler INHALE 2 PUFFS BY MOUTH EVERY 6 HOURS NEEDED FOR WHEEZING 09/14 completed Not Available Not Available Not Available norethind destini (contrace ptive) 0.35 mg tablet TAKE 1 TABLET BY MOUTH DAILY active Not Available Not Available No t Available ondansetr on 4 mg disintegr ating tablet DISSOLVE 1 TABLET ON THE TONGUE EVERY 8 HOURS NEEDED FOR NAUSEA OR VOMITING 09/14 completed Not Available Not Available Not Available fluoxetin e 20 mg capsule TAKE 1 CAPSULE BY MOUTH DAILY active Not Available Not Available No t Available fluticaso ne propionat e 50 mcg/actua tion nasal spray,leandro pension SHAKE LIQUID AND USE 2 SPRAYS IN EACH NOSTRIL DAILY NEEDED 09/14 completed Not Available Not Available Not Available sertralin e 50 mg tablet TAKE 1 TABLET BY MOUTH DAILY active Not Available Not Available No t Available metoclopr amide 10 mg tablet TAKE 1 TABLET BY MOUTH EVERY 6 HOURS NEEDED FOR NAUSEA OR VOMITING active Not Available Not Available No t Available amoxicill in 875 mg-potass ium clavulana te 125 mg tablet TAKE 1 TABLET BY MOUTH TWICE DAILY active Not Available Not Available No t Available magnesium active Not Available Not Daina ilable Not Available iron active Not Available Not Availa ble Not Available active Not Available Not Avai lable Not Available drospiren one 3 mg-ethiny l estradiol 0.02 mg tablet TAKE 1 TABLET BY MOUTH DAILY active Not Available Not Available No t Available aripipraz ole 2 mg tablet TAKE 1 TABLET BY MOUTH EVERY DAY active Not Available Not Available No t Available quetiapin e 50 mg tablet TAKE 1 TABLET BY MOUTH AT BEDTIME 09/14 completed Not Available Not Available Not Available FeroSul 325 mg (65 mg iron) tablet TAKE 1 TABLET BY MOUTH EVERY DAY AFTER MEALS active Not Available Not Available No t Available ropivacai ne (PF) 5 mg/mL (0.5 %) injection solution Take 40 mg by injectio n route. active [facility] 83016-38 11-13 Not Available Not Available Not Available fluoxetin e 60 mg tablet TAKE 1 TABLET BY MOUTH EVERY DAY active Not Available Not Available No t Available potassium chloride ER 20 mEq tablet,ex tended release TAKE 1 TABLET BY MOUTH EVERY DAY 03/21 completed Duplic[employer] Not Available Not Available Not Available Vitals Date Recorded Body mass index (BMI) Body height Oxygen saturation Oxygen saturation in Arterial blood by Pulse oximetry Heart rate Body temperature Body weight Systolic blood pressure Diastolic blood pressure Provider Name and Address Organization Details Last Updated DateTime 3 18.6 kg/m2 160.02 cm 98 % 98 % 82 /min 96.6 [degF] 32058.2 g 104 mm[Hg] 70 mm[Hg] Not Available [facility] 3 01:48:30 Date Recorded Body mass index (BMI) Body height Body weight Provider Name and Address Organization Details Last Updated DateTime 09/30/2022 18.6 kg/m2 160.02 cm 15635.2 g Not Available [facility] 10/14/2022 01:48:31 Date Recorded Body height Body mass index (BMI) Body weight Body temperature Heart rate Oxygen saturation Oxygen saturation in Arterial blood by Pulse oximetry Systolic blood pressure Diastolic blood pressure Provider Name and Address Organization Details Last Updated DateTime 3 160.02 cm 17.6 kg/m2 24240.4 4 g 97.7 [degF] 89 /min 99 % 99 % 110 mm[Hg] 70 mm[Hg] Aide Skelton [place] [employer] 3 10:55:50 Date Recorded Body height Body mass index (BMI) Body weight Body temperature Heart rate Respiratory rate Oxygen saturation Oxygen saturation in Arterial blood by Pulse oximetry Systolic blood pressure Diastolic blood pressure Provider Name and Address Organization Details Last Updated DateTime 3 160.02 cm 19 kg/m2 49105.3 8 g 97.4 [degF] 98 /min 16 /min 98 % 98 % 116 mm[Hg] 74 mm[Hg] Bri Aguilar RN [facility] 3 14:20:55 Date Recorded Body height Body mass index (BMI) Body weight Body temperature Heart rate Oxygen saturation Oxygen saturation in Arterial blood by Pulse oximetry Respiratory rate Systolic blood pressure Diastolic blood pressure Provider Name and Address Organization Details Last Updated DateTime 4 160.02 cm 19 kg/m2 11860.3 8 g 99 [degF] 91 /min 98 % 98 % 16 /min 102 mm[Hg] 46 mm[Hg] Edelmira Brandt RN [employer] 4 14:08:35 Social History Question Answer Notes LastModified by Organizat ion Details LastModified Time Tobacco Smoking Status Current Every Day Smoker vape Not Available [facility] 10/14/2022 01:48:00 What Is Your Level Of Alcohol Consumption? Occasional [id number] Information not available 10/14/2022 Do You Or Have You Ever Used E-cigarettes Or Vape? Current User Of Electronic Cigarettes [id number] Information not available 10/14/2022 Do You Use Your Seat Belt Or Car Seat Routinely? Yes [email or web address] Information not available 02/24/2023 Do You Participate In Social Media? Yes [email or web address] Information not available 02/24/2023 Do You Feel Stressed (tense, Restless, Nervous, Or Anxious, Or Unable To Sleep At Night)? [id number] [email or web address] Information not available 02/24/2023 How Many Years Have You Smoked Tobacco? 10 [id number] Information not available 10/14/2022 Do You Or Have You Ever Used Any Other Forms Of Tobacco Or Nicotine? Yes [id number] Information not available 10/14/2022 Sex: Unknown Functional Status None recorded. Mental Status None recorded. Family History Relationship Description Onset Age of this Age Resolved Age Notes LastModified by Organization Details LastModified Time Father No current problems or disability [id number] Not available 10/14/2022 01:48:26 Mother No current problems or disability [email or web address] [id number] Not available 10/14/2022 01:48:26 Medical History Condition Response BLINDNESS N RHEUMATIC FEVER N KIDNEY STONES N BLADDER PROBLEMS N MRSA N OTHER # 1 N POLIO N LUNG DISEASE/DISORDER N HISTORY OF DRUG ABUSE N RADIATION / CHEMOTHERAPY N COPD N Other # 2 N BLOOD DISEASES N SURGERY N EAR OR HEARING PROBLEMS N MUMPS N SHINGLES N BOWEL PROBLEMS N FEMALE PROBLEMS / INFECTIONS N DEPRESSION (INCLUDING POST ) Y STROKE/TIA N THYROID DISEASE N ULCERS N BENIGN PROSTATIC HYPERPLASIA N MEASLES N CERVICALGIA N HYPOTENSION N TB SKIN TEST N MYOCARDIAL INFARCTION N PARAPELGIA N OBESITY N GERD/NAUSEA N ANEURYSM N URINARY/BLADDER/KIDNEY PROBLEMS N CORONARY ARTERY DISEASE (CAD) N MENIERE'S DISEASE N ADDICTION CONCERNS N ENDOMETRIOSIS N USE OF BLOOD THINNERS N SKIN PROBLEMS N EMPHYSEMA N GASTROINTESTINAL DISORDER N MUSCLE,JOINT OR BONE PROBLEMS N GASTROINTESTINAL BLEEDING N BLOOD CLOTS N ASTHMA N CATARACTS N ERECTILE DYSFUNCTION N GI PROBLEMS N CHF N Low Testosterone N NEUROPATHY N INFERTILITY N AIDS/HIV N FRACTURES N CHEMOTHERAPY / RADIATION N VISION/EYE PROBLEMS N LIVER DISEASE N MALE HYPOGONADISM N HYPERTENSION Y TOURETTE'S N ANXIETY DISORDER Y BLOOD TRANSFUSION N ANEMIA/BLOOD DISORDER N CHRONIC EAR INFECTIONS N BRONCHITIS N TUBERCULOSIS N GLAUCOMA N FOOT PROBLEM N DIVERTICULITIS N CHICKENPOX N SLEEP APNEA N ALLERGIES/HAYFEVER N INFECTIOUS DISEASE N HEART ARRHYTHMIA N PROSTATE N INSOMNIA N HIGH CHOLESTEROL / HYPERLIPIDEMIA N HYPERTHYROIDISM N EYE PROBLEMS N EATING DISORDER N EDEMA N CHRONIC PAIN SYNDROME N CONSTIPATION N CAROTID BLOCKAGE N BACK / NECK PROBLEMS N HAVE YOU BEEN HOSPITALIZED OR SEEN IN [facility] ER IN THE PAST YEAR ? N ATHEROSCLEROSIS N BREAST PROBLEMS N DIALYSIS N ECZEMA N FIBROMYALGIA N OSTEOPOROSIS N ARTHRITIS N NO SIGNIFICANT PAST MEDICAL HISTORY N APPENDICITIS N DIABETES, TYPE N BAD TEETH N HEARTBURN / REFLUX N ADD/ADHD N AUTISM SPECTRUM DISORDER (ASD) N HEPATITIS / LIVER DISEASE N PULMONARY DISEASE N GOUT N SLEEP DISORDER N ALZHEIMER'S DISEASE N PAIN N HERPES N DEMENTIA N HEADACHES/MIGRAINES N SEIZURES/EPILEPSY N VASCULAR DISEASE N PACEMAKER N DIZZINESS N HEART DISEASE/HEART PROBLEMS N KIDNEY DISEASE N DEVELOPMENTAL OR BEHAVIORAL DISORDERS N MULTIPLE SCLEROSIS N SCARLET FEVER N MENTAL DISORDER/ILLNESS N CARDIAC ARRHYTHMIA N CANCER: SPECIFY N PNEUMONIA N ATRIAL FIBRILLATION N Gall Stones N PULMONARY EMBOLISM N AUTOIMMUNE DISEASE N Gynecological History Statement/Question Response How many live births 2 Abnormal Pap Y Sexually Active? Y Menses Monthly N STIs/STDs N Current Control Method None Age at Menarche 10 Obstetrics History GPAL:G 3 P 2 0 1 2 Type Value Full Term 2 Induced 1 Living 2 Total 3 Past Encounters Encounter ID Performer Location Encounter Start Date Encounter Closed Date Diagnosis/Indication Diagnosis SNOMED-CT Code Diagnosis ICD10 Code Diagnosis Note [id number] [facility] Huong shaikh [address] [place] [address] [place] [address] 09/14/2022 00:00:00 09/14/2022 19:34:26 [id number] [facility] [address] [facility] [address] [place] [address] 09/30/2022 00:00:00 09/30/2022 11:31:28 [id number] EDUAR Nash [facility] Huong shaikh [facility] [place] [address] 02/24/2023 10:39:51 02/24/2023 11:48:21 Anxiety 13596828 F41.9 [id number] EDUAR Nash [facility] Huong sha[facility] [place] [address] 07/18/2023 14:10:38 07/18/2023 14:39:10 History of idiopathic intracranial hypertension 6349144666 6341452 Z86.69 Chronic hypokalemia 1046 9003 E87.6 Diabetes m ellitus screening 700782861 Z13.1 Hyperlipid emia screening 266795668 Z13.220 Screening for disorder 961784576 Z13.9 Thyroid di sorder screening 139082114 Z13.29 Anxiety 51943251 F41.9 [id number] EDUAR Nash [facility] [address] [place] [address] 03/21/2024 13:56:04 03/21/2024 14:33:38 Chronic hypokalemia 69034587 E87.6 Adult heal th examination 735232814 Z00.00 Z13.220 Dental abscess 008719688 K04.7 top right molar Anxiety 18351130 F41.9 21967900 Z33.1 20 weeks along Health Concerns Section Related Observation LastModified by Organization Detai ls LastModified Time None Recorded Concern Status LastModified by Organization Details LastModified Time None Recorded Advance Directives Directive None Recorded Payers Encounter Date Sequence Insurance Name Policy Number Policy Simeon Covered Member ID Simeon Member ID Guarantor Name 02/24/2023 1 [facility] ON OR AFTER 02/12/21 (MEDICAID REPLACEMENT - HMO) Shane Stewart [id number] Shane Stewart 07/18/2023 1 [facility] ON OR AFTER 02/12/21 (MEDICAID REPLACEMENT - HMO) Shane Stewart [id number] Shane Stewart 03/21/2024 1 [facility] ON OR AFTER 02/12/21 (MEDICAID REPLACEMENT - HMO) Shane Stewart [id number] Shane Stewart Notes Date Note Type Note Provider Name and Address Organization Details Recorded Time 02/24/2023 text/html 23 y/o has a therapist , keeps a gratitude jar EDUAR Nash [address], [place], [address], [facility], [facility] 02/25/2023 14:43:22 07/18/2023 text/html Has idiopathic intracranial hypertension. EDUAR Nash [address], [place], [address], [facility], [place] [facility] [facility] 07/30/2023 10:30:49 03/21/2024 text/html 20 weeks 3rd bab y. always gets a yeast infection with amox. monistat does not work . top right molar pain . swelling . EDUAR Nash [address], [place], [address], [facility], [place] [employer] [facility] 04/02/2024 17:27:32 OBGyn Episode No OBEpisode recorded.
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
--- OUTSIDE RECORDS SUMMARY | 2024-10-24 11:01 | XMS_ITS | Clinical Summary ---
Author Organization [place] [id number] [facility] Address [address] [place] [address] Care Team Providers Care Kitchen Supervisor Name Role Phone Darlyn Wills MD Primary Care Provider [phone] Mateusz eRed MD Unavailable [phone] Allergies No known active allergies Medications acetaZOLAMIDE (DIAMOX) 250 mg tablet Take 1 tablet (250 mg total) by mouth 2 (two) times a day 01/19/2021 Active potassium chloride ER 20 mEq CR tablet Take 1 tablet (20 mEq total) by mouth daily 12/19/2021 Active clonazePAM (KlonoPIN) 1 mg tablet Take 1 tablet (1 mg total) by mouth 2 (two) times a day as needed Active amoxicillin-cla vulanate (Augmentin) 875-125 mg per tablet Take 1 tablet by mouth 2 (two) times a day 20 tablet 01/04/2024 Active amoxicillin-cla vulanate (Augmentin) 875-125 mg per tablet Take 1 tablet by mouth 2 (two) times a day 20 tablet 07/08/2024 Active fluconazole (DIFLUCAN) 150 mg tablet Take one tab now. Repeat in 7 days if symptoms persist. 2 tablet 07/08/2024 Active Active Problems Problem Noted Date Diagnosed Date Shoulder strain 03/20/2022 Seasonal allergic rhinitis 03/20/2022 Posterior rhinorrhea 03/20/2022 Tonsillitis 03/20/2022 Pharyngitis 03/20/2022 Allergic conjunctivitis 03/20/2022 Hypokalemia 02/08/2021 Second 07/14/2020 Overview (03/20/2022): A+, Neg antibody, Immune-rubella status, Rpr-NR, Hbsag-NR, HIV-NR H/H/P 14.5/44.4/311 Idiopathic intracranial hypertension 08/16/2017 Asthma affecting , antepartum 8 Social History Tobacco Use Types Packs/Day Years Used Date Smoking Tobacco: Every Day Vaping Personal Safety Answer Date Recorded Getting School Help Needed Not on file 08/12 Comments Unknown Sex and Gender Information Value Date Recorded Sex Assigned at Not on file Legal Sex Female 3:28 PM CDT Gender Identity Female 11/17/2020 8:01 PM CDT Sexual Orientation Bisexual 11/17/2020 8: 01 PM CDT Obstetrics History Last Filed Vital Signs Vital Sign Reading Time Taken Comments Blood Pressure 102/60 08/31/2023 10:28 AM CLINICAL OPERATIONS MANAGER Pulse 88 03/20/2022 3:15 PM CDT Temperature 37.1 C (98.8 F) 03/20/2022 3:15 PM CDT Respiratory Rate 17 08/31/2023 10:28 AM CLINICAL OPERATIONS MANAGER Oxygen Saturation 97% 03/20/2022 3:15 PM CDT Inhaled Oxygen Concentration - - Weight 48.1 kg (106 lb) 08/31/2023 10:28 AM CLINICAL OPERATIONS MANAGER Height 160 cm (5' 3 ) 08/31/2023 10:28 AM CLINICAL OPERATIONS MANAGER Body Mass Index 18.78 08/31/2023 10:28 AM CLINICAL OPERATIONS MANAGER Plan of Treatment Health Maintenance Due Date Last Done Comments Cervical Cancer Screening 1998 Depression Screening 1998 Hepatitis C Screening 1998 HPV Vaccines (3 - 2-dose series) 09/26/2009 06/02/20 09, 03/26/2009 Regular Well Visit/Exam 18-64 02/18/2016 Pneumococcal vaccine <65 (1 of 2 - PCV) 2017 Influenza Vaccine (#1) 2024 9, 05/22/2018, 06/02/2009 DTaP/Tdap/Td Vaccine (8 - Td or Tdap) 02/07/2028 02/06/2018, 03/26/2009, 03/08/2003, Additional history exists Hepatitis B Screening Completed 1998 , 1998, 1998 Varicella Vaccines Completed 04/16/2008, 04/10/[address] [place] [address] [facility] [place] [address] [facility] [place] [address] [facility] Care Teams Kitchen Supervisor Relationship Specialty Start Date End Date Darlyn Wills MD [address] [place] [address] [place] [address] PCP - General Family Medicine 09/14/22 Mateusz Reed MD [address] [place] [address] Family Medicine 09/14/22
--- OUTSIDE RECORDS SUMMARY | 2024-10-24 11:01 | XMS_ITS | Referral Summary ---
Author Organization [place] [id number] Address [address] [place] [address] Care Team Providers Care Certified Histologic Technician Name Role Phone Darlyn Wills MD Primary Care Provider [phone] Mateusz Reed MD Unavailable [phone] Allergies No known active allergies Medications acetaZOLAMIDE [...] Orientation Bisexual 11/17/2020 8: 01 PM CDT Last Filed Vital Signs Vital Sign Reading Time Taken Comments Blood Pressure 102/60 08/31/2023 10:28 AM RISK TECH Pulse 88 03/20/2022 3:15 PM CDT Temperature 37.1 C (98.8 F) 03/20/2022 3:15 PM CDT Respiratory Rate 17 08/31/2023 10:28 AM RISK TECH Oxygen Saturation 97% 03/20/2022 3:15 PM CDT Inhaled Oxygen Concentration - - Weight 48.1 kg (106 lb) 08/31/2023 10:28 AM RISK TECH Height 160 cm (5' 3 ) 08/31/2023 10:28 AM RISK TECH Body Mass Index 18.78 08/31/2023 10:28 AM RISK TECH Plan of Treatment Not on file Insurance [facility] Care Teams Certified Histologic Technician Relationship Specialty Start Date End Date Darlyn Wills MD [address] [place] [address] [place] [address] PCP - General Family Medicine 09/14/22 Mateusz Reed MD [address] [place] [address] [place] [address] Family Medicine 09/14/22
[2024-10-24 11:02] LABS: Troponin I < 0.012 ng/mL (0.000-0.034)
--- NOTE | 2024-10-24 11:04 | ED_ITS ---
HPI - Chest Pain General Chief Complaint: Chest Pain Stated Complaint: chest pain/ Time Seen by Provider: 10/24/24 10:38 Source: patient Mode of arrival: ambulatory Limitations: no limitations History of Present Illness HPI narrative: Patient is a 24-year-old female who presents the ED with c/o right-sided abdominal and chest pain. Patient reports having pain throughout her right- sided abdomen, right chest, radiating through to her right upper back for the last 4 days. States pain has been mostly constant, but waxes and wanes in severity. Worse with movement, taking deep breath. Has tried taking ibuprofen without improvement. Has not taken anything for pain today. Reports nausea and vomiting over the last 2 weeks. Denies feeling short of breath. Denies fevers. Denies pain or swelling in legs. Patient was seen at an urgent care prior to arrival and sent here for further evaluation. She is 8 weeks . Related Data Home Medications ?Medication ?Instructions ?Recorded ?Confirmed ?Last Taken ?Type clonazepam 1 mg tablet 1 mg PO PRN 11/08/23 09/05/24 Unknown History aripiprazole 2 mg tablet mg 10/24/24 Unknown History clonazepam 0.5 mg tablet mg 10/24/24 Unknown History ferrous sulfate 325 mg (65 mg mg 10/24/24 Unknown History iron) tablet (FeroSul) fluoxetine 60 mg tablet mg 10/24/24 Unknown History hydroxyzine HCl 25 mg tablet mg 10/24/24 Unknown History norethindrone (contraceptive) 0.35 mg 10/24/24 Unknown History mg tablet quetiapine 25 mg tablet mg 10/24/24 Unknown History Allergies Allergy/AdvReac Type Severity Reaction Status Date / Time No Known Allergies Allergy Verified 10/24/24 10:02 Review of Systems 2 Review of Systems: All systems reviewed & are unremarkable except as noted in HPI. All systems reviewed & are unremarkable except as noted in HPI and below PMFSH Past Medical History Medical History Chronic daily headache Irregular bleeding Fracture of left wrist Fracture of right elbow Intracranial hypertension Idiopathic History of low potassium Anxiety and depression Surgical History Surgical History H/O endoscopic sinus surgery History of gynecological procedure (06/20/19) nexplanon insertion History of gynecological procedure (07/23/19) colposcopy History of gynecological procedure (03/06/20) nexplanon removal Family History Family History Grandparent Hypothyroidism Social History Social History Smoking status: Former smoker Tobacco type: e-cigarettes/vaping Second hand tobacco smoke exposure: No Smoking end date: 08/15/20 Alcohol intake: never Substance use: never Substance use type: does not use Do You Feel Safe in your Home?: Yes Lack of Transportation: No Lack of Food: Never True Current Housing: Decline to Answer Concerned About Future Housing: Decline to Answer Difficulty Paying Gas/Electric Bills: Decline to Answer Difficulty Paying for Meds: Decline to Answer Currently Unemployed: Decline to Answer Education: Decline to Answer Difficulty w/ Childcare or Family Care: Decline to Answer Living arrangements: with family Additional living arrangements comments: Occupation/Education: other 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 HEAD: Normocephalic, atraumatic. RESPIRATORY: Airway patent, respirations nonlabored. Clear to auscultation bilaterally, no rales, rhonchi, wheezing. CARDIOVASCULAR: Regular rate and rhythm without murmurs, rubs, or gallops. ABDOMINAL: Soft, tenderness to palpation right mid to upper abdomen. Nondistended. Normoactive BS. MUSCULOSKELETAL: Moves all extremities. No gross deformities. No significant chest wall tenderness to palpation. No significant tenderness throughout right upper back. No peripheral edema. No calf tenderness. SKIN: Warm, dry, normal color. NEURO: A&O X3. Speech clear. PSYCHIATRIC: Appropriate mood and affect. Normal interaction. Course Vital Signs Vital signs: Vital Signs Temperature 97.5 F L 10/24/24 10:04 Pulse Rate 77 10/24/24 10:04 Respiratory Rate 16 10/24/24 10:04 Blood Pressure 110/62 10/24/24 10:04 Pulse Oximetry 100 10/24/24 10:04 Temperature 97.5 F L 10/24/24 10:04 Pulse Rate 91 10/24/24 13:56 Respiratory Rate 13 10/24/24 13:56 Blood Pressure 112/67 10/24/24 13:56 Pulse Oximetry 99 10/24/24 13:56 Oxygen Delivery Room Air 10/24/24 10:31 MDM - Chest Pain MDM Narrative Medical decision making narrative: Patient presented to ED with 4 day history of right-sided chest and abdominal pain. Also reporting nausea/vomiting over the past 2 weeks. Vital signs are stable upon arrival. Patient is in no acute distress. Laboratory studies without leukocytosis or anemia. CMP with slight dehydration, bicarb low at 18, anion gap of 13. Fluids ongoing. Kidney function is stable. Normal LFTs and lipase. EKG without ischemic changes. Troponin is undetectable. D-dimer within normal range. No evidence of DVT on exam. Low suspicion for PE. Chest x-ray is clear. CT scan of abd pelvis was obtained and unremarkable. No kidney abnormalities. No surgical findings. Did show mild distension of GB in findings. Will obtain RUQ US. Upper quadrant ultrasound is unremarkable. No evidence of biliary duct dilation, gallstones, gallbladder wall thickening. 3 hour troponin also undetectable. Low suspicion for ACS. HEART score =0. Discussed lab and imaging findings, overall reassuring workup with patient. She is still having some discomfort, worse with movement. Will attempt Toradol and muscle relaxer for possible musculoskeletal etiology. Feel patient is otherwise safe for discharge home. Will discharge with lidocaine patches and muscle relaxers. Will also send Zofran to pharmacy for report of nausea. Patient has not had any vomiting in the ED here today. Advised to continue Tylenol/ibuprofen as needed for pain. Recommended close follow-up with PCP for further evaluation. Discussed strict return precautions. Patient voiced understanding. In agreement with plan. Discharged in stable condition. Differential Diagnosis Differential diagnosis: Likely pneumothorax, atypical chest pain, costochondritis, biliary colic and other (pyelonephritis, musculoskeletal etiology) Medical Records Data Attestation: I reviewed the patient's medical records. Lab Data Attestation: I reviewed the patient's lab results. 10/24/24 10:31 10/24/24 10:31 Labs: Lab Results 03/12/25 03/12/25 Range/Units 10:31 13:42 WBC 7.2 (4.5-10.0) K/mm3 RBC 4.18 L (4.2-5.4) M/mm3 Hgb 13.4 (12.0-15.0) g/dL Hct 40.9 (37.0-47.0) % MCV 97.8 (80-100) fl MCH 32.1 (26-34) pg MCHC 32.8 (32-36) g/dl RDW 13.5 (11.5-14.5) % Plt Count 316 (150-375) k/mm3 MPV 10.3 (7.4-10.4) fl Immature Gran % (Auto) 0.3 (0-0.5) % Neut % (Auto) 76.0 H (45.5-73.1) % Lymph % (Auto) 15.6 L (18.3-44.2) % [place] % (Auto) 6.1 (2.6-8.5) % Eos % (Auto) 1.0 (0-4.4) % Baso % (Auto) 1.0 (0.2-1.2) % Lymph # (Auto) 1.12 (0.9-3.2) K/mm3 [place] # (Auto) 0.4 (0.1-0.6) K/mm3 Eos # (Auto) 0.1 (0-0.3) K/mm3 Baso # (Auto) 0.1 (0.0-0.1) K/mm3 Abs Immat Gran (auto) 0.02 (0.00-0.031) K/mm3 Absolute Neuts (auto) 5.5 (1.3-6.7) K/mm3 Absolute Nucleated RBC 0.000 (0.0-0.012) K/mm3 Nucleated RBC % 0.0 (0.0-0.2) % PT 13.3 (11.1-14.7) Seconds INR 1.0 APTT 24.2 (22.3-36.8) Seconds D-Dimer < 0.27 (<0.48) ug/mL Sodium 139 (137-145) mmol/L Potassium 3.4 (3.4-5.0) mmol/L Chloride 108 H (98-107) mmol/L Carbon Dioxide 18 L (22-30) mmol/L Anion Gap 13 H (4-12) mmol/L BUN 11 D (7-17) mg/dL Creatinine 0.73 (0.7-1.0) mg/dL Estim Creat Clear Calc 84 ml/min Estimated GFR > 60 (59 - ) Glucose 88 (65-110) mg/dL Calcium 9.2 (8.4-10.2) mg/dL Total Bilirubin 0.8 (0.2-1.3) mg/dL AST 22 (14-36) U/L ALT 23 (6-35) U/L Alkaline Phosphatase 52 (38-126) U/L Troponin I < 0.012 < 0.012 (0.000-0.034) ng/mL Total Protein 8.0 (6.3-8.2) g/dL Albumin 4.6 (3.5-5.1) g/dL Lipase 58 (23-300) U/L Imaging Data Attestation: I personally reviewed and interpreted this imaging study as follows: Radiologist's impression: ITS Impressions Chest X-Ray 10/24/24 10:52 IMPRESSION: 1. No acute cardiopulmonary disease. Abdomen/Pelvis CT 10/24/24 12:22 IMPRESSION: No acute pathology appreciated within the abdomen or pelvis, as detailed above. Abdomen Ultrasound 10/24/24 13:35 IMPRESSION: 1. No etiology for the patient's symptoms. ECG Data EKG #1: Attestation: I personally reviewed and interpreted this ECG as follows: ECG completion date: 10/24/24 ECG completion time: 10:31 EKG Interpretation: normal rate (76), sinus rhythm and no ST changes Discharge Plan Discharge Clinical Impression: Right sided abdominal pain, Right-sided chest pain Nausea and vomiting Qualifiers: Vomiting type: unspecified Qualified Code(s): R11.2 - Nausea with vomiting, unspecified Patient Disposition: Home, Self-Care Condition: Stable Instructions: Antibiotic Form, Chest Pain (ED), Abdominal Pain (ED), Chest Wall Pain (ED) Additional Instructions: Your workup here was reassuring. Continue Tylenol, ibuprofen as needed for pain. Utilize ice, lidocaine patches to area of pain. Take muscle relaxers as needed and prescribed. Recommend taking these at night as they may cause sedation. Do not drive, operate heavy machinery, drink alcohol while on muscle relaxers as this may cause further sedation. Utilize zofran as needed for nausea. Follow-up with primary care doctor for further evaluation. Return to the ED if you experience worsening or severe pain, difficulty breathing or feeling short of breath, unable to keep down food or drink, persistent fevers, or any other symptoms of concern. Patient Language: Congolese Prescriptions: New methocarbamol 750 mg tablet 1,500 mg PO TID PRN (Reason: muscle spasm) Qty: 15 0RF lidocaine 5 % adhesive patch,medicated 1 patch topical DAILY Qty: 15 0RF Rx Instructions: leave on most painful area for up to 12 hrs ondansetron 4 mg tablet,disintegrating 4 mg PO Q8H PRN (Reason: nausea and vomiting) Qty: 15 0RF No Action quetiapine 25 mg tablet clonazepam 0.5 mg tablet ferrous sulfate [FeroSul] 325 mg (65 mg iron) tablet hydroxyzine HCl 25 mg tablet norethindrone (contraceptive) 0.35 mg tablet aripiprazole 2 mg tablet fluoxetine 60 mg tablet clonazepam 1 mg tablet 1 mg PO PRN acetazolamide 250 mg tablet See Rx Instructions .ROUTE .COMPLEX Qty: 60 3RF Dose Instruction: TAKE 1 TABLET(250 MG) BY MOUTH TWICE DAILY Rx Instructions: TAKE 1 TABLET(250 MG) BY MOUTH TWICE DAILY potassium chloride 20 mEq tablet,ER particles/crystals 20 meq PO DAILY Qty: 60 0RF drospirenone-ethinyl estradiol [SHANE (28)] 3-0.02 mg tablet 1 tablet PO DAILY Qty: 84 3RF Follow-up/Referrals: Shailesh,EDUAR Bradley [Primary Care Provider] - Rc Marion MD [Physician] - (PRIMARY CARE) Time of Disposition: 14:46 Quality HEART score for chest pain patients History: slightly suspicious ECG: normal Age: < or = to 45 years Risk factors: no risk factors known Troponin: < or = to 1x normal limit Heart score: 0
[2024-10-24 11:16] LABS: D Dimer < 0.27 ug/mL (<0.48)
[2024-10-24] MEDS: ONDANSETRON INJ 4 MG/2 ML VIAL IV PUSH (12:14)
[2024-10-24] MEDS: SODIUM CHLORIDE 0.9% IV 1,000 ML 999 ML IV CONT (12:14)
[2024-10-24] MEDS: MORPHINE SULFATE (*CRX) 4 MG/ML INJ IV PUSH (12:14)
--- OUTSIDE RECORDS SUMMARY | 2024-10-24 12:14 | XMS_ITS | Clinical Summary ---
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
--- OUTSIDE RECORDS SUMMARY | 2024-10-24 12:15 | XMS_ITS | Clinical Summary ---
Author Organization [place] [id number] [facility] Address [address] [place] [address] Care Team Providers Care Carpenter'S Assistant Name Role Phone Darlyn Wills MD Primary Care Provider [phone] Mateusz Reed MD Unavailable [phone] Allergies No known active allergies Medications acetaZOLAMIDE [...] Comments Blood Pressure 102/60 08/31/2023 10:28 AM ROLL OVER LOADER Pulse 88 03/20/2022 3:15 PM CDT Temperature 37.1 C (98.8 F) 03/20/2022 3:15 PM CDT Respiratory Rate 17 08/31/2023 10:28 AM ROLL OVER LOADER Oxygen Saturation 97% 03/20/2022 3:15 PM CDT Inhaled Oxygen Concentration - - Weight 48.1 kg (106 lb) 08/31/2023 10:28 AM ROLL OVER LOADER Height 160 cm (5' 3 ) 08/31/2023 10:28 AM ROLL OVER LOADER Body Mass Index 18.78 08/31/2023 10:28 AM ROLL OVER LOADER Plan of Treatment Health Maintenance Due Date [...] Completed 04/16/2008, 04/10/[address] [place] [address] [facility] [place] [address] [facility] [place] [address] [facility] Care Teams Carpenter'S Assistant Relationship Specialty Start Date End Date Darlyn Wills MD [address] [place] [address] [place] [address] PCP - General Family Medicine 09/14/22 Mateusz Reed MD [address] [place] [address] Family Medicine 09/14/22
--- OUTSIDE RECORDS SUMMARY | 2024-10-24 12:15 | XMS_ITS | Referral Summary ---
Author Organization [place] [id number] [facility] Address [address] [place] [address] Care Team Providers Care Automobile Damage Appraiser Name Role Phone Darlyn Wills MD Primary Care Provider [phone] Mateusz Reed MD Unavailable [phone] Allergies No known active allergies Medications acetaZOLAMIDE [...] Comments Blood Pressure 102/60 08/31/2023 10:28 AM ANALYST Pulse 88 03/20/2022 3:15 PM CDT Temperature 37.1 C (98.8 F) 03/20/2022 3:15 PM CDT Respiratory Rate 17 08/31/2023 10:28 AM ANALYST Oxygen Saturation 97% 03/20/2022 3:15 PM CDT Inhaled Oxygen Concentration - - Weight 48.1 kg (106 lb) 08/31/2023 10:28 AM ANALYST Height 160 cm (5' 3 ) 08/31/2023 10:28 AM ANALYST Body Mass Index 18.78 08/31/2023 10:28 AM ANALYST Plan of Treatment Not on file Insurance [facility] Care Teams Automobile Damage Appraiser Relationship Specialty Start Date End Date Darlyn Wills MD [address] [place] [address] [place] [address] PCP - General Family Medicine 09/14/22 Mateusz Reed MD [address] [place] [address] [place] [address] Family Medicine 09/14/22
[2024-10-24 13:56] VITALS: BP 112/67; PULSE 91; RESP 13; O2SAT 99
[2024-10-24] MEDS: diazePAM INJ (*CRX) 10 MG/2 ML SYRINGE IV PUSH (14:09)
[2024-10-24] MEDS: KETOROLAC 30 MG/ML VIAL (*BKC) IV PUSH (14:09)
[2024-10-24 14:21] LABS: Troponin I < 0.012 ng/mL (0.000-0.034)
== END 2024-10-24 15:11 | disposition home or self-care (01) ==
PROVIDERS: Emergency Medicine; Emergency Provider Physician Assistant; PCP Physician Assistant
DX: R07.9 Chest pain, unspecified (principal); R10.9 Unspecified abdominal pain; R11.2 Nausea with vomiting, unspecified; G93.2 Benign intracranial hypertension; F41.9 Anxiety disorder, unspecified; F32.A Depression, unspecified; Z87.891 Personal history of nicotine dependence; R94.31 Abnormal electrocardiogram [ECG] [EKG]
CPT/HCPCS: 36415; 71046; 74177; 76705; 80053; 83690; 84484; 85025; 85380; 85610; 85730; 93005; 96361; 96374; 96375; 99284; J1885; J2270; J2405; J3360; J7030; Q9967

== ENCOUNTER 2024-12-20 00:37 | Day surgery (SDC) | payer OTHER, SELFPAY ==
[2024-12-10 12:39] VITALS: BMI 24.3
--- NOTE | 2024-12-10 12:46 | PC.NURSE ---
Report to the Outpatient Waiting Room, entrance under the green pavilion located off [facility], at time _0630_ on date _[id number]_. Planned Procedure Time: _0830_.? Time changes happen often and if your time is changed the preop area will call you the afternoon before. - You and your visitor will be asked to self-screen and do not enter if you have any COVID symptoms. Please call surgeon if you need to reschedule. - A mask is optional within the hospital at this time. Patients may have clear liquids (water, carbonated beverages, clear teas, apple juice) until 3 hours prior to surgery with a maximum of 20 ounces. - No food from midnight until time of surgery and no smoking, or chewing tobacco (or any form of nicotine). No chewing gum, candy or mints. Take only the following medications with a SIP of water on the morning of surgery: __Pristiq and if needed Clonazepam___ DO NOT STOP ANY OF YOUR OTHER PRESCRIPTION MEDICATIONS PRIOR TO SURGERY EXCEPT THE FOLLOWING Hold all vitamins and supplements for 3 days per anesthesiologist. Medications to discontinue per physician Date to take last dose Please no make-up, nail micronesian, hairspray, perfume, deodorant, or body powder the day of surgery.? No jewelry (including any body piercings) or valuables the day of surgery, leave them at home.? Please take a shower or bath the night before, or the morning of, surgery with an antibacterial soap.? Wear comfortable, loose fitting clothing. - Jewelry must be removed prior to entering the operating room.? Rings and piercings that are not removed may be cut off. - The hospital will not accept responsibility for valuables.? - Please leave all valuables, including medications, at home the day of surgery. If you are going home after surgery, a licensed auto transport driver must drive you home.? - NO public transportation without another adult if you receive anesthesia. - We recommend that an adult stay with you for 24 hours following discharge. - We also recommend that you do not drive, make important decision, drink alcoholic beverages, or take any drugs that were not prescribed by your health care provider for at least 24 hours after your discharge time. Follow any additional instructions given to you from your surgeon. Telephone instructions given to __Tasia__and asked if any additional questions and then verbalized understanding. Patient advised to call surgeon office or pre surgery nurse liaison [phone] if any additional questions.
--- NOTE | 2024-12-18 14:23 | P.HP_ITS ---
H&P: HPI History of Present Illness Date/Time: 12/18/24 14:23 24-year-old 5 para 3023 female presents for permanent sterilization. We have discussed all nonpermanent measures and she strongly desires to proceed with bilateral salpingectomy. We have discussed the permanence, failure rate, increased incidence of ectopic and regret. She declines all nonpermanent measures. Chief Complaint: Undesired fertility Review of Systems Review of Systems: All systems reviewed & are unremarkable except as noted in HPI and below PMFSH Past Medical History Medical History Chronic daily headache Irregular bleeding Fracture of left wrist Fracture of right elbow Intracranial hypertension Idiopathic History of low potassium Anxiety and depression Surgical History Surgical History H/O endoscopic sinus surgery History of gynecological procedure (06/20/19) nexplanon insertion History of gynecological procedure (07/23/19) colposcopy History of gynecological procedure (03/06/20) nexplanon removal Family History Family History Grandparent Hypothyroidism Social History Social History Smoking status: Former smoker Tobacco type: e-cigarettes/vaping Second hand tobacco smoke exposure: No Smoking end date: 08/15/20 Alcohol intake: never Substance use: current Substance use type: marijuana Other substance usage details: Daily Do You Feel Safe in your Home?: Yes Lack of Transportation: No Lack of Food: Never True Current Housing: Decline to Answer Concerned About Future Housing: Decline to Answer Difficulty Paying Gas/Electric Bills: Decline to Answer Difficulty Paying for Meds: Decline to Answer Currently Unemployed: Decline to Answer Education: Decline to Answer Difficulty w/ Childcare or Family Care: Decline to Answer Living arrangements: with family Additional living arrangements comments: Occupation/Education: other 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 Gender identity (if verbalized by the patient): Female Sexual Orientation (if Verbalized by the Patient): Bisexual Spiritual care concerns: No Meds Home Medications and Allergies Home Medications ?Medication ?Instructions ?Recorded ?Confirmed ?Type acetazolamide 250 mg tablet See Rx Instructions .Route 02/11/23 12/10/24 Rx .COMPLEX #60 tabs potassium chloride 20 mEq 20 meq PO DAILY #60 tabs 07/30/24 12/10/24 Rx tablet,extended release(part/cryst) drospirenone 3 mg-ethinyl 1 tablet PO DAILY #84 tabs 10/08/24 12/10/24 Rx estradiol 0.02 mg tablet (SHANE (28)) clonazepam 0.5 mg tablet 0.5 mg PO Q8H PRN anxiety 10/24/24 12/10/24 History ferrous sulfate 325 mg (65 mg 325 mg PO DAILY 10/24/24 12/10/24 History iron) tablet (FeroSul) hydroxyzine HCl 25 mg tablet 25 mg PO HS PRN sleep 10/24/24 12/10/24 History ondansetron 4 mg disintegrating 4 mg PO Q8H PRN nausea and 10/24/24 12/10/24 Rx tablet vomiting #15 tabs quetiapine 25 mg tablet 25 mg PO HS 10/24/24 12/10/24 History desvenlafaxine succinate 25 mg 25 mg PO DAILY 12/10/24 12/10/24 History tablet,extended release 24 hr (Pristiq) Allergies Allergy/AdvReac Type Severity Reaction Status Date / Time No Known Allergies Allergy Verified 12/10/24 12:33 Exam Const: General: cooperative, healthy appearing and comfortable Resp: Effort & Inspection: normal respiratory effort Auscultation: clear to auscultation bilaterally Cardio: Rate: regular rate Rhythm: regular rhythm GI: Inspection: normal to inspection Auscultation: normal bowel sounds : External Female Exam: normal external appearance Speculum Exam - Vagina: normal appearance of the vagina Speculum Exam - Cervix: normal a ppearance of the cervix Bimanual exam- vagina & uterus: normal bimanual exam Bimanual Exam- Adnexa, other: normal adnexae Assessment and Plan Assessment and plan (1) Encounter for female sterilization procedure: Code(s): Z30.2 - Encounter for sterilization Status: Acute Plan proceed with laparoscopic bilateral salpingectomy
[2024-12-20] VITALS (7 sets, daily range): BP systolic 93–120; BP diastolic 47–65; PULSE 72–99; RESP 12–16; TEMP 36.5–37.1; O2SAT 96–100
--- OUTSIDE RECORDS SUMMARY | 2024-12-20 00:39 | XMS_ITS | Clinical Summary ---
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
--- OUTSIDE RECORDS SUMMARY | 2024-12-20 00:39 | XMS_ITS | Continuity of Care Document ---
Author Organization [facility] Address [address] [place] [address] Phone Care Team Providers Care Live In Housekeeper Name Role Phone Mateusz Reed MD Unavailable Unavailable Allergies, Adverse Reactions, Alerts Substance Reaction Status Criticality No Known Allergies Active No Inform ation Medications Medication Instructions Dosage Effective Dates (start - stop) Status Comments Seroquel 25 mg tablet take 1 tablet by o ral route every bedtime 25 MG - Active Klonopin 0.5 mg tablet take 1 tablet by oral route 2 times every day 0.5 MG - Active potassium chloride ER 20 mEq tablet,extended release take 1 tablet by oral route every day with food 20 MEQ - Active acetazolamide 250 mg tablet take 1 tablet by oral route BID - Active Procedures Procedure Date OFFICE/OUTPATIENT VISIT, EST OFFICE/OUTPATIENT VISIT, EST PREV VISIT, EST, AGE 18-39 OFFICE/OUTPATIENT VISIT, EST OFFICE/OUTPATIENT VISIT, EST OFFICE/OUTPATIENT VISIT, EST PREV VISIT, NEW, AGE 18-39 Advance Directives Directive Yes / No Effective Date File Name No Information Encounters Encounter Description Practice Location Reason(s) For Visit Diagnoses Date Provider Providers Copied on Encounter OFFICE/OUTPA TIENT VISIT, EST [facility], [address] [place], [place], [id number], [place] tel:[phone] [facility] Medicine appetite1 (chief complaint) anxiety1 (chief complaint) renal cyst1 (chief complaint) Acquired cyst of kidneyGeneralized Anxiety DisorderLoss of appetiteVomiting 2 Derek Ramirez [address], [place], [place], [id number] , [place]. tel:[phone] OFFICE/OUTPA TIENT VISIT, [facility], [address], [place], [place], [address], [place] tel:[phone] [facility] anxiety1 (chief complaint) Generalized Anxiety Disorder 2 Derek Ramirez [address], [place], [place], [address] , [place]. tel:[phone] PREV VISIT, EST, AGE 18-39 [facility], [address], [place], [place], [id number], [place] tel:[phone] [facility] physical (chief complaint) Encounter for general adult medical examination without abnormal findings 2 Derek Ramirez [address], [place], [place], [id number] , [place]. tel:[phone] OFFICE/OUTPA TIENT VISIT, [facility], [address], [place], [place], [address], [place] tel:[phone] [facility] anxiety1 (chief complaint) insomnia1 (chief complaint) ICH (chief complaint) Benign intracranial hypertensionGeneral ized Anxiety DisorderInsomnia 1 Derek Ramirez [address], [place], [place], [address] , [place]. tel:[phone] OFFICE/OUTPA TIENT VISIT, [facility], [address], [place], [place], [address], [place] tel:[phone] [facility] anxiety1 (chief complaint) weight loss1 (chief complaint) x ray1 (chief complaint) Generalized Anxiety DisorderInsomniaAbn findings on dx imaging of abd regions, inc retroperiton 1 Derek Ramirez [address], [place], [place], [address] , [place]. tel:[phone] OFFICE/OUTPA TIENT VISIT, [facility], [address], [place], [place], [address], [place] tel:[phone] [facility] Medicine ICH (chief complaint) toothache1 (chief complaint) anxiety1 (chief complaint) back pain1 (chief complaint) Benign intracranial hypertensionGeneral ized Anxiety DisorderLumbagoAtyp ical facial painAbn findings on dx imaging of abd regions, inc retroperiton 0 Derek Child. [address], [place], [place], [address] , [place]. tel:[phone] PREV VISIT, NEW, AGE 18-39 [facility], [address], [place], [place], [address], [place] tel:[phone] [facility] Physical (chief complaint) Encntr for general adult medical exam w/o abnormal findings 0 Derek Child. [address], [place], [place], [id number] , [place]. tel:[phone] Family History Family Member Type Diagnosis Age At Onset Sister Problem Alcoholism Father Problem liver cirrhosis Mother Problem Depression Sister Problem Alive and well Payers Payer name Insurance type Covered republican ID Authoriza tion(s) No Information Social History [...] effexor. Pt is seeing psychiatrist now in [place]. Pt denies any suicidal or homicidal thought [...] effexor. Pt is seeing psychiatrist now in [place]. Pt denies any suicidal or homicidal thought [...] weight loss Pt denies any abd pain. back pain1 Pt states that b ack [...] homicidal thought PT denies any crying spells toothache1 Pt c/o toothache bottom right for [...] denies any acute headache or vision change Physical Pt needs annual physical. Pt states [...] Mental Status Date Cognitive Assessment Orientation - [place] ed to time, place, person, situation.
--- OUTSIDE RECORDS SUMMARY | 2024-12-20 00:40 | XMS_ITS | Data Portability ---
Author Organization [place] [facility] [employer], Main Office Address [address] [place] [address] Care Team Providers Care Law Writer Name Role Phone PANFILO ROBLES Primary Care Provider PANFILO ROBLES Referring Provider Assessment Encounter Date Assessment Date Assessment LastModified by Organization Details LastModified Time 12/13/2024 12/13/2024 The patient has patellofemoral pain both knees as described this seems to be localized to the patellofemoral articulations. We talked about treatment options in detail today I have advised her that therapy for VMO strengthening is banereje to treating this problem as well as patellar guide braces anti-inflammatory medication and possible cortisone injections she wanted proceed with cortisone to. Under sterile conditions I injected both knee joints in the office with 4 cc of 0.5% bupivacaine and 20 mg of Kenalog each. The patient tolerated both injections well. I will see her back in a couple of months see how she is doing. Today I also prescribed diclofenac 75 mg b.i.d. with food she will try that for awhile as well. We will give the therapy and other measures time to help settle down the inflammation. She has bilateral patellofemoral guide braces that she will wear I have advised her to wear these when she is out and about daily. She voiced understanding agrees with the above plan she will call for any further problems difficulties or questions. [email or web address] Not available 12/13/2024 11:47:23 Plan of Treatment Reminders Order Date Submit Date Provider Last Modified By Organization Details Last Modified Time Details Appointments None recorded. Lab CBC w/ auto diff 2023 024 [facility], [address] [place], [address], 4 19:52:24 CMP, serum or plasma [address], [address] [place], [address], 4 08:05:43 lipid panel, serum [address], [address] [place], [address], 4 08:05:44 CBC w/ auto diff 2022 023 [facility] (Lab), [address] [place], [address], 3 14:55:24 CMP, serum or plasma 2022 023 [facility] (Lab), [address] [place], [address], 3 14:55:24 lipid panel, serum [address] [facility] (Lab), [address] [place], [address], 4 16:18:42 TSH + free T4, serum 2022 023 [facility] (Lab), [address] [place], [address], 3 14:55:24 HbA1c (hemoglobi n A1c), blood [email or web address] [facility] (Lab), [address] [place], [address], 4 16:18:42 Referral physical therapist referral - please contact patient to schedule 2024 025 [facility], [address], [place], [address], 5 13:08:23 neurologis t referral 2022 023 [email or web address] [place], [address], [place], [address], 4 09:41:19 neuro-opht halmologis t referral 2022 023 [email or web address] Dafne Martinez, [address], [place], [address], 4 09:01:19 Procedures injection/ aspiration joint/burs a (PROC) 2024 025 [email or web address] In-Office Order, Internal Use Only DO Not Attach Compendium DO Not Attach Compendium, Do Not Delete/merge, [id number] 5 11:43:13 Surgeries None recorded. Imaging XR, knee, 3 view 2024 025 [email or web address] [facility], [address], [place], [address], 5 11:47:52 Medication Orders bupivacain e HCl 0.5 % (5 mg/mL) injection solution 2024 025 [facility], [address] [facility], [place], [place], [id number], 5 11:47:52 Kenalog 10 mg/mL suspension for injection 2024 025 [facility]09261, [address] [facility], [place], [place], [id number], 5 11:47:52 diclofenac sodium 75 mg tablet,del ayed release 2024 025 [email or web address] #58606, [address], [place], [place], [id number], 5 11:47:52 amoxicilli n 500 mg capsule 2023 024 [facility] #15370, [address], [place], [place], [id number], 5 11:10:31 fluconazol e 150 mg tablet 2023 024 [facility] #03027, [address], [place], [place], [id number], 5 11:10:57 Klor-Con M20 mEq tablet,ext ended release 2022 023 [email or web address] [facility] #67025, [address], [place], [place], [id number], 3 14:49:03 clonazepam 1 mg tablet 2022 023 [facility] #88500, [address], [place], [place], [id number], 4 10:04:06 Patient TargetsNo targets recorded. Patient Instructions Encounter Date Encounter Id Patient Instructions Last Modified By Organization Details Last Modified Time 02/24/2023 [id number] she keeps a gratitude jar . has a flap curer . I advised writing out thoughts and shredding, get book finding your strength in difficult times.; get waldo headspace [email or web address] Not available 02/25/2023 14:43:08 07/18/2023 [id number] [facility] samples [email or web address] Not availab le 07/18/2023 14:36:19 03/21/2024 [id number] she said her ob gives fluconazole when she is , I advised she get their approval before taking still [email or web address] Not available 03/21/2024 14:33:33 Reason for Referral Neurologist Referral for His tory of idiopathic intracranial hypertension Referring Physician: Gunner Cash [facility], Encounter Date: 07/18/2023 Neuro-butcher head Referr al for History of idiopathic intracranial hypertension Referring Physician: Gunner Cash [facility], Encounter Date: 07/18/2023 Physical Therapist Referral for Pain of knee region please contact patient to schedule patient has bilateral anterior knee pain and PF maltracking Referring Physician: Ajay Verdin, Orthopedic Surgery, Encounter Date: 12/13/2024 Results Created Date Observation Date Name Description Value Unit Range Abnormal Flag Note LastModifiedBy Organization Detail LastModifiedTime 09/14/1909/14/2022 BASIC METAB OLIC PANEL sodium 139 mmol/ L 137-[address] [facility] (Lab) [address] [place], [address], 09/14/2022 13:10:39 09/14/19 23 09/14/2022 BASIC METAB OLIC PANEL potassium 4.5 mmol/ L 3.5-5. 1 Not Available [facility] (Lab) [address] [place], [address], 09/14/2022 13:10:39 09/14/19 23 09/14/2022 BASIC METAB OLIC PANEL chloride 105 mmol/ L 98-[address] [facility] (Lab) [address] [place], [address], 09/14/2022 13:10:39 09/14/19 23 09/14/2022 BASIC METAB OLIC PANEL carbon dioxide 22 mmol/ L 22-[address] [facility] (Lab) [address] [place], [address], 09/14/2022 13:10:39 09/14/19 23 09/14/2022 BASIC METAB OLIC PANEL anion gap 16.5 mmol/ L 14-[address] [facility] (Lab) [address] [place], [address], 09/14/2022 13:10:39 09/14/19 23 09/14/2022 BASIC METAB OLIC PANEL glucose 99 mg/dL 70-[address] [facility] (Lab) [address] [place], [address], 09/14/2022 13:10:39 09/14/19 23 09/14/2022 BASIC METAB OLIC PANEL BUN 12 mg/dL 8-[address] [facility] (Lab) [address] [place], [address], 09/14/2022 13:10:39 09/14/19 23 09/14/2022 BASIC METAB OLIC PANEL creatinine 0.72 mg/dL 0.66-[address] [facility] (Lab) [address] [place], [address], 09/14/2022 13:10:39 09/14/19 23 09/14/2022 BASIC METAB OLIC PANEL GFR >60 Refer ence Range : [place] ge GFR Healt hy Adult : >60 [...] or ethni c subgr oups, such as Hisks nics. Outsi de the valid ated dav [...] calcu lator is avail able on the F websi te: https ://ww w.kid jen.o rg/pr ofess ional s/kdo qi/gf r_cal culat or Not Available [facility] (Lab) [address] [place], [address], 09/14/2022 13:10:39 09/14/19 23 09/14/2022 BASIC METAB OLIC PANEL calcium 10.1 mg/dL 8.4-[address] [facility] (Lab) [address] [place], [address], 09/14/2022 13:10:39 09/14/19 23 XR, knee, 3 view [facility] [place] [address] [place] [address] Patiflaquita t Name: SHANE SINGLETON Access ion #: [id number] Sex: F : 1999 2 Locati on: [place]2 Attend ing Physic ashwini: DARLYN SAMPSON Orderi Physic ashwini: RICARDO DANIELS RUNBELTRAN Exam Date: 023 11:00 AM Exam Name: [...] the right knee. Page 1 of 2 [facility] Patiflaquita t Name: SHANE SINGLETON Access ion #: [id number] Sex: F : 1999 2 Exam Date: 023 11:00 AM Exam Name: XR KNEE RT 3V Admitt ing Diagno sis(es ): Create d and electr onical ly signed by: Rolando godoy MD Signed Date: 11:34 AM (CT) Dictat ed by: Rolando godoy MD DD: 023 11:34 AM (CT) DT: 023 11:34 AM (CT) Page 2 of [id number] [facility] (Imaging) [address] [place], [address], 10/14/2022 01:49:29 09/14/19 23 09/14/2022 XR, knee, 3 view No observ ation record ed. [id number] [facility] [address] [place] [address], [place], [address], 10/14/2022 01:49:29 09/14/19 23 XR, knee, 3 view [facility] [address] [place] [address] Patien t Name: SHANE SINGLETON Access ion #: [id number] Sex: F : 1999 2 Locati on: [place]2 Attend ing Physic ashwini: DARLYN SAMPSON Orderi Physic ashwini: RICARDO DANIELS RUNBELTRAN Exam Date: 023 11:00 AM Exam Name: [...] the left knee. Page 1 of 2 [facility] Patiflaquita t Name: SHANE SINGLETON Access ion #: [id number] Sex: F : 1999 2 Exam Date: 11:00 AM Exam Name: XR KNEE LT 3V Admitt ing Diagno sis(es ): Create d and electr onical ly signed by: Rolando godoy MD Signed Date: 11:35 AM (CT) Dictat ed by: Rolando godoy MD DD: 11:35 AM (CT) DT: 11:35 AM (CT) Page 2 of [id number] [facility] ([facility] [address] [place], [address], 10/14/2022 01:49:29 09/14/19 23 09/14/2022 XR, knee, 3 view No observ ation record ed. [id number] [facility] [address] [place] [address], [place], [address], 10/14/2022 01:49:29 09/14/19 23 XR, hip, unila teral , 2 or 3 view [facility] [address] [place] [address] [phone] Patiflaquita t Name: SHANE SINGLETON Access ion #: [id number] Sex: F : 1999 2 Locati on: [place]2 Attend ing Physic ashwini: DARLYN SAMPSON Orderi ng Physic ashwini: RICARDO DANIELS RUNDA Exam Date: 11:00 AM Exam Name: [...] the right hip. Page 1 of 2 [facility] t Name: SHANE SINGLETON Access ion #: [id number] Sex: F : 1999 2 Exam Date: 023 11:00 AM Exam Name: XR HIP/PE LVIS RT 2-3V Admitt ing Diagno sis(es ): Create d and electr onical ly signed by: Rolando godoy MD Signed Date: 11:35 AM (CT) Dictat ed by: Rolando godoy MD DD: 11:35 AM (CT) DT: 023 11:35 AM (CT) Page 2 of [id number] [facility] [address] [place], [address], 10/14/2022 01:49:29 09/14/19 23 09/14/2022 XR, knee, 3 view No observ ation record ed. MIGRATION. [facility] [address] [place] [address], [place], [address], 10/14/2022 01:49:29 09/30/19 XR, knee, 3 view No observ ation record ed. MIGRATION. [facility] [address], [place], [address], 10/14/2022 01:49:29 06/29/20 23 06/29/2023 XR, sacru m + coccy x, 2 or more view No observ ation record ed. [address], [place], [address], 06/29/2023 16:41:06 06/29/20 23 06/29/2023 XR, thora cic spine , 3 view No observ ation record ed. [address], [place], [address], 06/29/2023 16:42:17 07/23/20 24 07/20/2024 US, obste tric No observ ation record ed. [address], [place], [address], 08/03/2024 09:03:14 10/25/19 25 10/24/2024 imagi ng/di agnos tic resul t No observ ation record ed. [address], [place], [address], 10/24/2024 13:25:57 10/25/19 25 10/24/2024 imagi ng/di agnos tic resul t No observ ation record ed. [address], [place], [address], 10/24/2024 14:34:28 10/25/19 25 10/24/2024 imagi ng/di agnos tic resul t No observ ation record ed. [address], [place], [address], 10/24/2024 15:31:22 12/14/19 25 XR, knee, 3 view No observ ation record ed. [email or web address] [facility] [address] [facility] [address], [place], [address], 12/13/2024 11:46:30 Result Notes None recorded. Problems Name Problem SNOMED Code Status Onset Date Resolution Date Notes Provider Name and Address Organization Details Recorded Time History of idiopathic intracrani al hypertensi on 8106221700774 9108 Active 2022 Not Available [employer] 3 01:48:50 Patellofem oral stress syndrome 881244240 Active 2022 Not Available [employer] 3 01:48:50 Patellofem oral stress syndrome 216309294 Active 2022 Not Available [employer] 3 01:48:50 Chronic hypokalemi a 65004050 Active 2022 Darlyn Wills MD [address], [address], [place], [address] , [place] [facility] 3 19:37:37 Anxiety 42803422 Active 2022 EDUAR Nash [address], [address], [place], [address] , [place] [facility] 3 13:16:00 Dental abscess 291961255 Active 2023 EDUAR Nash [address], [address], [place], [address] , [place] [facility] 4 14:25:29 Adult health examinatio n Active 2023 EDUAR Nash [address], [address], [place], [address] , [place] [facility] 4 14:32:20 28544017 Active 2023 EDUAR Nash [address], [address], [place], [address] , [place] [facility] 4 17:26:43 Anemia 667844090 Active 2023 EDUAR Nash [address], [place], [address] , [place] [facility] 4 12:14:19 Depressive disorder 41269208 Active 2024 EDUAR Nash [address], [place], [address] , [place] [facility] 5 13:41:53 Pain of knee region 9355878425 Active 2024 Kim Ware CNA null, [place] [facility] [place] [facility] 11:17:17 Patellofem oral syndrome of bilateral knees 4316791732787 9105 Active 2024 EDUAR Shaw [address] [facility], [facility] [address], [place], [address] , [facility] [place] [facility] 11:44:09 Problem Notes None recorded. Procedures Surgical History Date Name Laterality Status Provider Name and Address Organization Details Recorded Time Sinus Surgery completed Not Available [facility] 10/14/2022 01:48:26 Imaging Results Imaging Date Name Status LastModified by Organiz ation Details LastModified Time 09/30/2022 XR, knee, 3 view completed [id number] [facility] [address] [facility] [address], [place], [address], 10/14/2022 01:49:29 09/14/2022 XR, knee, 3 view completed [id number] [facility] [address] [place], [address], 10/14/2022 01:49:29 09/14/2022 XR, knee, 3 view completed [id number] [address] [place], [address], 10/14/2022 01:49:29 09/14/2022 XR, knee, 3 view completed [id number] [address] [facility] [address] [place], [address], 10/14/2022 01:49:29 09/14/2022 XR, knee, 3 view completed [id number] [address] [place], [address], 10/14/2022 01:49:29 09/14/2022 XR, hip, unilateral, 2 or 3 view completed [id number] [facility] [address], [place], [address], 10/14/2022 01:49:29 09/14/2022 XR, knee, 3 view completed [id number] 026 [facility] [address], [place], [address], 10/14/2022 01:49:29 06/29/2023 XR, sacrum + coccyx, 2 or more view completed [address], [place], [address], 06/29/2023 16:41:06 06/29/2023 XR, thoracic spine, 3 view completed [address], [place], [address], 06/29/2023 16:42:17 07/20/2024 US, obstetric completed [email or web address], [place], [address], 08/03/2024 09:03:14 10/24/2024 imaging/diagno stic result active [address], [place], [address], 10/24/2024 13:25:57 10/24/2024 imaging/diagno stic result active [address] [place] [address], [address], 10/24/2024 14:34:28 10/24/2024 imaging/diagno stic result active [address], [place], [address], 10/24/2024 15:31:22 12/13/2024 XR, knee, 3 view completed [email or web address] [facility] [address] [facility] [address], [place], [address], 12/13/2024 11:46:30 Procedure Notes None recorded. Medical Equipment None Reported. Allergies No known drug allergies Medications Name Sig Start Date Stop Date Status Note LastModified by Organization Details LastModified Time quetiapin e 25 mg tablet TAKE 1 TABLET BY MOUTH EVERY DAY 12/13 completed Not Available Not Available Not Available fluoxetin e 40 mg capsule TAKE 1 CAPSULE BY MOUTH EVERY DAY 12/13 completed Not Available Not Available Not Available amoxicill in 500 mg capsule TAKE 1 CAPSULE BY MOUTH EVERY 8 HOURS FOR 10 DAYS 12/13 completed Not Available Not Available Not Available dicloxaci llin 500 mg capsule TAKE [...] REPEAT IN 7 DAYS IF SYMPTOMS PERSIST 12/13 completed Not Available Not Available Not Available fluconazo le 200 mg tablet TAKE [...] 1 TABLET BY MOUTH EVERY 6 HOURS 12/13 completed Not Available Not Available Not Available bupivacai ne HCl 0.5 % (5 mg/mL) injection solution Take 40 mg by injectio n route. 2024 active Not Available Not Available Not Avai lable clonazepa m 0.5 mg tablet TAKE 1 [...] potassium chloride 20 mEq/15 mL oral liquid 12/13 completed Not Available Not Available Not Available amoxicill [...] completed Not Available Not Available Not Available methocarb janie 750 mg tablet TAKE 2 TABLETS BY MOUTH THREE TIMES DAILY NEEDED FOR MUSCLE SPASM 12/13 completed Not Available Not Available Not Available Kenalog 10 mg/mL suspensio n for injection Take 40 mg by injectio n route. 2024 active [facility]: [phone] 4-20 Not Available Not Available Not Available paroxetin e 20 mg tablet TAKE 1 TABLET BY MOUTH EVERY DAY AT BEDTIME 09/14 completed Not Available Not Available Not Available lidocaine 5 % topical patch APPLY 1 PATCH TOPICALL Y DAILY. LEAVE ON MOST PAINFUL AREA FOR UP TO 12 HOURS. 12/13 completed Not Available Not Available Not Available diclofena c sodium 75 mg tablet,de layed release Take 1 tablet twice a day by oral route. 2024 active Not Available Not Available Not Avai lable hydroxyzi ne HCl 25 mg tablet TAKE 1 TABLET BY MOUTH EVERY DAY NEEDED FOR SLEEP 12/13 completed Not Available Not Available Not Available ibuprofen 600 mg tablet TAKE 1 TABLET BY MOUTH EVERY 6 HOURS NEEDED FOR CRAMPING 09/14 completed Not Available Not Available Not Available albuterol sulfate HFA 90 mcg/actua tion aerosol inhaler INHALE 2 PUFFS BY MOUTH EVERY 6 HOURS NEEDED FOR WHEEZING 09/14 completed Not Available Not Available Not Available norethifranklyn funese (contrace ptive) 0.35 mg tablet TAKE 1 TABLET BY MOUTH DAILY 12/13 completed Not Available Not Available Not Available ondansetr on 4 mg disintegr ating tablet DISSOLVE 1 TABLET ON THE TONGUE EVERY 8 HOURS NEEDED FOR NAUSEA OR VOMITING active Not Available Not Available No t Available fluoxetin e 20 mg capsule TAKE 1 CAPSULE BY MOUTH EVERY DAY 12/13 completed Not Available Not Available Not Available fluticaso ne propionat e 50 mcg/actua tion nasal spray,leandro pension SHAKE LIQUID AND USE 2 SPRAYS IN EACH NOSTRIL DAILY NEEDED 09/14 completed Not Available Not Available Not Available sertralin e 50 mg tablet TAKE 1 TABLET BY MOUTH DAILY 12/13 completed Not Available Not Available Not Available metoclopr amide 10 mg tablet TAKE 1 TABLET BY MOUTH EVERY 6 HOURS NEEDED FOR NAUSEA OR VOMITING 12/13 completed Not Available Not Available Not Available amoxicill in 875 mg-potass ium clavulana te 125 mg tablet TAKE 1 TABLET BY MOUTH TWICE DAILY 12/13 completed Not Available Not Available Not Available magnesium 12/13 completed Not Available Not Available Not Available iron 12/13 completed Not Available Not Available Not Available 12/13 completed Not Available Not Available Not Available drospiren one 3 mg-ethiny l estradiol 0.02 mg tablet TAKE 1 TABLET BY MOUTH DAILY active Not Available Not Available No t Available aripipraz ole 2 mg tablet TAKE 1 TABLET BY MOUTH EVERY DAY 12/13 completed Not Available Not Available Not Available quetiapin e 50 mg tablet TAKE 1 TABLET BY MOUTH AT BEDTIME 09/14 completed Not Available Not Available Not Available FeroSul 325 mg (65 mg iron) tablet TAKE 1 TABLET BY MOUTH EVERY DAY AFTER MEALS active Not Available Not Available No t Available quetiapin e ER 50 mg tablet,ex tended release 24 hr TAKE 2 TABLETS BY MOUTH EVERY DAY AT BEDTIME active Not Available Not Available No t Available ropivacai ne (PF) 5 mg/mL (0.5 %) injection solution Take 40 mg by injectio n route. 12/13 completed [facility] [address]-39 11-13 Not Available Not Available Not Available fluoxetin e 60 mg tablet TAKE 1/2 TABLET BY MOUTH DAILY 12/13 completed Not Available Not Available Not Available potassium chloride ER 20 mEq tablet,ex tended release TAKE 1 TABLET BY MOUTH EVERY DAY 03/21 completed [employer] Not Available Not Available Not Available desvenlaf axine succinate ER 25 mg tablet,ex tended release 24 hr TAKE 1 TABLET BY MOUTH EVERY DAY active Not Available Not Available No t Available Vitals Date Recorded Body mass index (BMI) Body height Body weight Provider Name and Address Organization Details Last Updated DateTime 09/30/2022 18.6 kg/m2 160.02 cm 70210.2 g Not Available [facility] 10/14/2022 01:48:31 Date Recorded Body height Body mass index (BMI) Body weight Body temperature Heart rate Oxygen saturation Oxygen saturation in Arterial blood by Pulse oximetry Systolic blood pressure Diastolic blood pressure Provider Name and Address Organization Details Last Updated DateTime 3 160.02 cm 17.6 kg/m2 93735.4 4 g 97.7 [degF] 89 /min 99 % 99 % 110 mm[Hg] 70 mm[Hg] Aide Skelton MA [facility] [employer] [facility] 3 10:55:50 Date Recorded Body height Body mass index (BMI) Body weight Body temperature Heart rate Respiratory rate Oxygen saturation Oxygen saturation in Arterial blood by Pulse oximetry Systolic blood pressure Diastolic blood pressure Provider Name and Address Organization Details Last Updated DateTime 3 160.02 cm 19 kg/m2 18063.3 8 g 97.4 [degF] 98 /min 16 /min 98 % 98 % 116 mm[Hg] 74 mm[Hg] Bri Aguilar RN [facility] [employer] [facility] 3 14:20:55 Date Recorded Body height Body mass index (BMI) Body weight Body temperature Heart rate Oxygen saturation Oxygen saturation in Arterial blood by Pulse oximetry Respiratory rate Systolic blood pressure Diastolic blood pressure Provider Name and Address Organization Details Last Updated DateTime 4 160.02 cm 19 kg/m2 48697.3 8 g 99 [degF] 91 /min 98 % 98 % 16 /min 102 mm[Hg] 46 mm[Hg] Edelmira Brandt RN [facility] [employer] 4 14:08:35 Date Recorded Body height Body mass index (BMI) Body weight Provider Name and Address Organization Details Last Updated DateTime 12/13/2024 160.02 cm 24.3 kg/m2 33648.15 g Kim Ware CNA [place] [employer] [facility] [employer] 12/13/2024 11:10:07 Social History Question Answer Notes LastModified by [employer] ion Details LastModified Time Tobacco Smoking Status Current Every Day Smoker vape Not Available [facility] 10/14/2022 01:48:00 What Is Your Level Of Alcohol Consumption? None Information not available 12/13/2024 Do You Or Have You Ever Used E-cigarettes Or Vape? Current User Of Electronic Cigarettes [id number] Information not available 10/14/2022 Do You Use Your Seat Belt Or Car Seat Routinely? Yes [email or web address] Information not available 02/24/2023 Do You Participate In Social Media? Yes [email or web address] Information not available 02/24/2023 Do You Feel Stressed (tense, Restless, Nervous, Or Anxious, Or Unable To Sleep At Night)? [id number] [email or web address] Information not available 02/24/2023 How Many Years Have You Smoked Tobacco? 12 Information not available 12/13/2024 Do You Or Have You Ever Used Any Other Forms Of Tobacco Or Nicotine? Yes [id number] Information not available 10/14/2022 Sex: Unknown Functional Status None recorded. Mental Status None recorded. Family History Relationship Description Onset Age of this Age Resolved Age Notes LastModified by Organization Details LastModified Time Father No current problems or disability [id number] Not available 10/14/2022 01:48:26 Mother No current problems or disability [id number] Not available 10/14/2022 01:48:26 Medical History Condition Response BLINDNESS N RHEUMATIC FEVER N KIDNEY STONES N BLADDER PROBLEMS N MRSA N OTHER # 1 N POLIO N LUNG DISEASE/DISORDER N HISTORY OF DRUG ABUSE N RADIATION / CHEMOTHERAPY N COPD N Other # 2 N BLOOD DISEASES N SURGERY N EAR OR HEARING PROBLEMS N MUMPS N SHINGLES N FEMALE PROBLEMS / INFECTIONS N BOWEL PROBLEMS N DEPRESSION (INCLUDING POST ) Y STROKE/TIA N THYROID DISEASE N ULCERS N BENIGN PROSTATIC HYPERPLASIA N MEASLES N CERVICALGIA N TB SKIN TEST N HYPOTENSION N MYOCARDIAL INFARCTION N PARAPELGIA N OBESITY [...] DISORDER Y BLOOD TRANSFUSION N ANEMIA/BLOOD DISORDER Y CHRONIC EAR INFECTIONS N BRONCHITIS N TUBERCULOSIS N GLAUCOMA N FOOT PROBLEM N DIVERTICULITIS N SLEEP APNEA N CHICKENPOX N ALLERGIES/HAYFEVER N INFECTIOUS DISEASE N PROSTATE N HEART ARRHYTHMIA N INSOMNIA N HIGH CHOLESTEROL / HYPERLIPIDEMIA N EYE PROBLEMS N HYPERTHYROIDISM N EATING DISORDER N EDEMA N CHRONIC PAIN SYNDROME N CONSTIPATION N CAROTID BLOCKAGE N BACK / NECK PROBLEMS N HAVE YOU BEEN HOSPITALIZED OR SEEN IN [facility] IN THE PAST YEAR ? N ATHEROSCLEROSIS [...] DISORDER N ALZHEIMER'S DISEASE N PAIN N DEMENTIA N HERPES N SEIZURES/EPILEPSY N HEADACHES/MIGRAINES N VASCULAR DISEASE N PACEMAKER N DIZZINESS N HEART DISEASE/HEART PROBLEMS N KIDNEY DISEASE N SCARLET FEVER N MULTIPLE SCLEROSIS N DEVELOPMENTAL OR BEHAVIORAL DISORDERS N MENTAL DISORDER/ILLNESS N CANCER: SPECIFY N CARDIAC ARRHYTHMIA N PNEUMONIA N ATRIAL FIBRILLATION N Gall [...] SNOMED-CT Code Diagnosis ICD10 Code Diagnosis Note [id number] Darlyn Wills MD [facility] [address] [place] [address] [place] [address] 09/14/2022 00:00:00 09/14/2022 19:34:26 [id number] Robby Cash MD [facility] Ortho Spray [address] [place] [address] 09/30/2022 00:00:00 09/30/2022 11:31:28 [id number] Darlyn Wills MD [facility] [address] [place] [address] [place] [address] 02/24/2023 10:39:51 02/24/2023 11:48:21 Anxiety 22823551 F41.9 [id number] Darlyn Wills MD [facility] [address] [place] [address] [place] [address] 07/18/2023 14:10:38 07/18/2023 14:39:10 History of idiopathic intracranial hypertension [id number] 3162752 Z86.69 Chronic hypokalemia 1046 9003 E87.6 Diabetes m ellitus screening 750921620 Z13.1 Hyperlipid emia screening 423515795 Z13.220 Screening for disorder 594745997 Z13.9 Thyroid di sorder screening 195318021 Z13.29 Anxiety 74720371 F41.9 [id number] Yimi Funk MD [facility] [address] [place] [address] [place] [address] 03/21/2024 13:56:04 03/21/2024 14:33:38 Chronic hypokalemia 92898636 E87.6 Adult heal th examination 047565351 Z00.00 Z13.220 Dental abscess 038069990 K04.7 top right molar Anxiety 77056165 F41.9 15718365 Z33.1 20 weeks along [id number] Rolando Rivera MD [facility] [place] [address] [address] [place] [address] 12/13/2024 10:50:21 12/13/2024 11:43:48 Pain of knee region 4081218255 M25.561 M25.562 M22.8X1 M22.8X2 Patellofem oral syndrome of bilateral knees 1137517451 4048283 M22.2X1 M22.2X2 Health Concerns Section Related Observation LastModified by Organization Detai ls LastModified Time None Recorded Concern Status LastModified by Organization Details LastModified Time None Recorded Advance Directives Directive None Recorded Payers Encounter Date Sequence Insurance Name Policy Number Policy Simeon Covered Member ID Simeon Member ID Guarantor Name 02/24/[address] [facility] ON OR AFTER 02/12/21 (MEDICAID REPLACEMENT - HMO) Shane Stewart [id number] Shane Stewart 07/18/[address] [facility] ON OR AFTER 02/12/21 (MEDICAID REPLACEMENT - HMO) Shane Stewart [id number] Shane Stewart 03/21/2024 1 [facility] ON OR AFTER 02/12/21 (MEDICAID REPLACEMENT - HMO) Shane Stewart [id number] Shane Stewart 12/13/[address] [facility] ON OR AFTER 02/12/21 (MEDICAID REPLACEMENT - HMO) Shane Stewart [id number] Shane Stewart Notes Date Note Type Note Provider Name and Address Organization Details Recorded Time 02/24/2023 text/html 23 y/o has a therapist , keeps a gratitude jar EDUAR Nash [address], [place], [address], [facility] 02/25/2023 14:43:22 07/18/2023 text/html Has idiopathic intracranial hypertension. EDUAR Nash [address], [place], [address], [employer] 07/30/2023 10:30:49 03/21/2024 text/html 20 weeks 3rd bab y. always gets a yeast infection with amox. monistat does not work . top right molar pain . swelling . EDUAR Nahs [address], [place], [address], [facility] 04/02/2024 17:27:32 12/13/2024 text/html the patient is a 24-year-old female who presents with bilateral knee pain in the anterior regions. She has had chronic patellofemoral pain since she was a teenager by her report. I saw her about 2 years ago for this she had patellofemoral pain we did shots of cortisone which gave her pretty good relief for quite awhile. Recently her knee pain has flared up again she can not really pinpoint an exact time when she started to notice that the pain recurred but it has been going on for a few months now. She denies any trauma or injury to either knee recently or previously. She has no swelling or effusion denies any catching or locking in the knees other than a little bit behind each kneecap she does report some crepitation particularly with squatting kneeling going up and down stairs. Occasionally she will take some Tylenol but otherwise really no other treatment or medication has been done. She had therapy ordered for her previously but she did not go through with therapy. I have advised her this is really the most important factor in the treatment plan to keep her knees strong and stable. She comes in today for further evaluation and treatment. She states the pain is about a 5 on a scale of 1-10 both knees. New past medical history sheet was reviewed and signed on the intake sheet of today's date drug allergies current medications family social history previous surgical history 10 point review of systems was reviewed and discussed in detail today with the patient. EDUAR Shaw [address], [place], [address], [facility] 12/13/2024 11:47:27 OBGyn Episode No OBEpisode recorded.
--- OUTSIDE RECORDS SUMMARY | 2024-12-20 00:40 | XMS_ITS | Referral Summary ---
Author Organization [place] [id number] [facility] Address [address] [place] [address] Care Team Providers Care Curator Natural History Museum Name Role Phone Darlyn Wills MD Primary Care Provider [phone] Mateusz Reed MD Unavailable [phone] Allergies No known active allergies Medications acetaZOLAMIDE [...] Comments Blood Pressure 102/60 08/31/2023 10:28 AM POISING INSPECTOR Pulse 88 03/20/2022 3:15 PM CDT Temperature 37.1 C (98.8 F) 03/20/2022 3:15 PM CDT Respiratory Rate 17 08/31/2023 10:28 AM POISING INSPECTOR Oxygen Saturation 97% 03/20/2022 3:15 PM CDT Inhaled Oxygen Concentration - - Weight 48.1 kg (106 lb) 08/31/2023 10:28 AM POISING INSPECTOR Height 160 cm (5' 3 ) 08/31/2023 10:28 AM POISING INSPECTOR Body Mass Index 18.78 08/31/2023 10:28 AM POISING INSPECTOR Plan of Treatment Not on file Insurance [facility] Care Teams Curator Natural History Museum Relationship Specialty Start Date End Date Darlyn Wills MD [address] [place] [address] [place] [address] PCP - General Family Medicine 09/14/22 Mateusz Reed MD [address] [place] [address] [place] [address] Family Medicine 09/14/22
--- OUTSIDE RECORDS SUMMARY | 2024-12-20 00:40 | XMS_ITS | Clinical Summary ---
Author Organization [place] [id number] [facility] Address [facility] [place] [address] Care Team Providers Care Side Laster Staple Name Role Phone Darlyn Wills MD Primary Care Provider [phone] Mateusz Reed MD Unavailable [phone] Allergies No known active allergies Medications acetaZOLAMIDE [...] Comments Blood Pressure 102/60 08/31/2023 10:28 AM MICROSOFT DYNAMICS MANAGER ARCHITECT Pulse 88 03/20/2022 3:15 PM CDT Temperature 37.1 C (98.8 F) 03/20/2022 3:15 PM CDT Respiratory Rate 17 08/31/2023 10:28 AM MICROSOFT DYNAMICS MANAGER ARCHITECT Oxygen Saturation 97% 03/20/2022 3:15 PM CDT Inhaled Oxygen Concentration - - Weight 48.1 kg (106 lb) 08/31/2023 10:28 AM MICROSOFT DYNAMICS MANAGER ARCHITECT Height 160 cm (5' 3 ) 08/31/2023 10:28 AM MICROSOFT DYNAMICS MANAGER ARCHITECT Body Mass Index 18.78 08/31/2023 10:28 AM MICROSOFT DYNAMICS MANAGER ARCHITECT Plan of Treatment Health Maintenance Due Date [...] Completed 04/16/2008, 04/10/[address] [place] [address] [facility] [place] [address] [facility] [place] [address] [facility] Care Teams Side Laster Staple Relationship Specialty Start Date End Date Darlyn Wills MD [address] [place] [address] [place] [address] PCP - General Family Medicine 09/14/22 Mateusz Reed MD [address] [place] [address] Family Medicine 09/14/22
--- NOTE | 2024-12-20 05:46 | WPDHPUPDATE1 ---
History and Physical Update Update Date/Time: 12/20/24 05:46 History and Physical has been reviewed, including an updated exam of the patient. There are NO changes in the patient's condition. Risks, benefits, and alternatives have been discussed and questions answered. Patient agrees to proceed with procedure.
[2024-12-20] MEDS: LACTATED RINGERS 1,000 ML 30 ML IV CONT ×2 (07:00→09:50)
[2024-12-20] MEDS: ACETAMINOPHEN 500 MG TABLET 1000 MG PO (07:29)
[2024-12-20] MEDS: KETOROLAC 15 MG/ML VIAL (*BKC) IV PUSH (07:29)
[2024-12-20] MEDS: SCOPOLAMINE 1 MG PATCH 1 PATCH TRANSDERM (07:35)
[2024-12-20 07:37] LABS: BEDSIDEPREGUCG Negative (Negative)
--- NOTE | 2024-12-20 08:13 | P.PNAN_ITS ---
Anes - Initial Pre Proc Eval Procedure: Operation Date: 12/20/24 08:30 Proposed Procedures p Laparoscopic Bilateral Salpingectomy - Elvis Vital MD Date/Time: 12/20/24 08:13 Surgeon: Elvis Vital MD Pre Op Diagnosis: desired sterilization Patient Data Age: 24 Gender: F Height: 1.6 m Weight: 60 kg Last Vital Signs Temp 97.7 F 12/20/24 07:31 Pulse 73 12/20/24 07:31 Resp 16 12/20/24 07:31 BP 102/65 12/20/24 07:31 Pulse Ox 98 12/20/24 07:31 O2 Del Method Room Air 12/20/24 07:31 Allergies Allergy/AdvReac Type Severity Reaction Status Date / Time No Known Allergies Allergy Verified 12/20/24 07:27 Home Medications ?Medication ?Instructions ?Recorded ?Confirmed ?Type acetazolamide 250 mg tablet See Rx Instructions .Route 02/11/23 12/20/24 Rx .COMPLEX #60 tabs potassium chloride 20 mEq 20 meq PO DAILY #60 tabs 07/30/24 12/20/24 Rx tablet,extended release(part/cryst) drospirenone 3 mg-ethinyl 1 tablet PO DAILY #84 tabs 10/08/24 12/10/24 Rx estradiol 0.02 mg tablet (SHANE (28)) clonazepam 0.5 mg tablet 0.5 mg PO Q8H PRN anxiety 10/24/24 12/20/24 History ferrous sulfate 325 mg (65 mg 325 mg PO DAILY 10/24/24 12/10/24 History iron) tablet (FeroSul) hydroxyzine HCl 25 mg tablet 25 mg PO HS PRN sleep 10/24/24 12/10/24 History ondansetron 4 mg disintegrating 4 mg PO Q8H PRN nausea and 10/24/24 12/10/24 Rx tablet vomiting #15 tabs quetiapine 25 mg tablet 25 mg PO HS 10/24/24 12/10/24 History desvenlafaxine succinate 25 mg 25 mg PO DAILY 12/10/24 12/20/24 History tablet,extended release 24 hr (Pristiq) Laboratory Tests 12/20/24 07:31 POC Urine HCG, Qual Negative (Negative) Patient hx anesthesia problems: none Family hx anesthesia problems: none Results Review: All pre-operative results and documents have been reviewed as part of the pre- operative evaluation. [facility] Past Medical History Medical History Chronic daily headache Irregular bleeding Fracture of left wrist Fracture of right elbow Intracranial hypertension Idiopathic History of low potassium Anxiety and depression Surgical History Surgical History H/O endoscopic sinus surgery History of gynecological procedure (06/20/19) nexplanon insertion History of gynecological procedure (07/23/19) colposcopy History of gynecological procedure (03/06/20) nexplanon removal Family History Family History Grandparent Hypothyroidism Social History Social History Smoking status: Former smoker Tobacco type: e-cigarettes/vaping Second hand tobacco smoke exposure: No Smoking end date: 08/15/20 Alcohol intake: never Substance use: current Substance use type: marijuana Other substance usage details: Daily Do You Feel Safe in your Home?: Yes Lack of Transportation: No Lack of Food: Never True Current Housing: Decline to Answer Concerned About Future Housing: Decline to Answer Difficulty Paying Gas/Electric Bills: Decline to Answer Difficulty Paying for Meds: Decline to Answer Currently Unemployed: Decline to Answer Education: Decline to Answer Difficulty w/ Childcare or Family Care: Decline to Answer Living arrangements: with family Additional living arrangements comments: Occupation/Education: other 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 ) Neurological: alert and oriented Last oral intake: >/= 8 hours ASA classification: II Emergent: no Anesthetic plan: proceed Anesthesia type and monitoring: general ETT and standard monitoring Results Review: All pre-operative results and documents have been reviewed as part of the pre-operative evaluation. Arash daily, anxiety/depression, hx of idopathic intracranial HTN, on med. Informed Consent: The patient's anesthetic plan and its attendant risks and benefits were discussed with the patient/family/POA. Questions were solicited and answers provided to the satisfaction of the patient/family/POA.
--- NOTE | 2024-12-20 09:22 | W.PM.PROC2 ---
Procedure Note - Detailed Date of Procedure 12/20/24 Pre-op Diagnosis desired sterilization Post-op Diagnosis Same Procedure Performed Laparoscopic bilateral salpingectomy Surgeon Elvis Vital MD Anesthesia General Findings Uterus tubes ovaries without abnormality Description of Procedure Patient prepped draped usual manner is a. Cervical instruments were placed for uterine mobility throughout the case. Abdominal trocar sites were placed under direct visualization. Using the LigaSure mesial salpinx was cauterized and cut bilaterally and tubes removed without difficulty. There was no bleeding, gas was allowed to escape. Incisions approximated using 4-0 Monocryl after the trocars removed. Estimated Blood Loss 10 Drains No Packing No Pathology Yes Complications No immediate complications Condition Stable Disposition PACU [facility] Billing Surgery - Charge Forward: Surgery Billing
[2024-12-20] MEDS: HYDROmorphone HCL INJ (*CRX) 1 MG/ML SYR IV PUSH (09:40)
[2024-12-20] MEDS: HYDROmorphone HCL INJ (*CRX) 1 MG/ML SYR 0.25 MG IV PUSH (10:04)
[2024-12-20] MEDS: oxyCODONE HCL (*CRX) 5 MG TAB IR PO (10:29)
== END 2024-12-20 11:06 | disposition home or self-care (01) ==
PROVIDERS: PCP Family Medicine; Visit Provider Obstetrics & Gynecology
PROC: (CPT 49320; principal; 2024-12-20 08:30)
DX: Z30.2 Encounter for sterilization (principal); G89.18 Other acute postprocedural pain; R51.9 Headache, unspecified; F41.8 Other specified anxiety disorders; G93.2 Benign intracranial hypertension; F12.90 Cannabis use, unspecified, uncomplicated; Z98.890 Other specified postprocedural states; Z87.891 Personal history of nicotine dependence
CPT/HCPCS: 58661; 88302; A9270; J1100; J1171; J1885; J2003; J2250; J2405; J2704; J3010; J7120

== ENCOUNTER 2025-02-05 09:14 | Outpatient (CLI) | payer OTHER, SELFPAY ==
[2025-02-05 10:05] LABS: CRP 0.7 mg/dL (<1.0); Uric Acid 2.8 mg/dL (2.5-7.5)
[2025-02-05 10:06] LABS: Complement C3 121 mg/dL (88-165); Rheumatoid Factor < 12.0 IU/ML (<12)
[2025-02-06 07:28] LABS: DNA (ds) Antibody. <1 IU/mL; SM Antibody <1.0 NEG AI (<1.0 NEG); SM/RNP Antibody <1.0 NEG AI (<1.0 NEG); SS-A <1.0 NEG AI (<1.0 NEG); SS-B <1.0 NEG AI (<1.0 NEG)
[2025-02-06 16:23] LABS: Cyclic Citrullinated Peptide. <16 UNITS
[2025-02-07 15:08] LABS: Complement Total CH50. 59 U/mL (31-60)
== END 2025-02-05 09:15 | disposition home or self-care (01) ==
LOC: ANHLAB 09:18
PROVIDERS: Visit Provider Physician Assistant Surgical
DX: M25.50 Pain in unspecified joint (principal); I10 Essential (primary) hypertension
CPT/HCPCS: 36415; 84550; 86038; 86039; 86140; 86160; 86162; 86200; 86225; 86235; 86430

== ENCOUNTER 2025-02-11 09:56 | Outpatient (CLI) | payer OTHER, SELFPAY ==
[2025-02-11 11:03] LABS: Hematocrit 41.4 % (37.0-47.0); Hemoglobin 13.4 g/dL (12.0-15.0); Mean Corpuscular HGB Conc 32.4 g/dl (32-36); Mean Corpuscular Hemoglobin 29.7 pg (26-34); Mean Corpuscular Volume 91.8 fl (80-100); Mean Platelet Volume 11.6 fl (7.4-10.4); Platelet Count Result 329 k/mm3 (150-375); Red Blood Count 4.51 M/mm3 (4.2-5.4); Red Cell Distribution Width 13.6 % (11.5-14.5); White Blood Count 13.3 K/mm3 (4.5-10.0)
[2025-02-11 11:18] LABS: Alanine Aminotransferase 25 U/L (6-35); Albumin Level 4.5 g/dL (3.5-5.1); Alkaline Phosphatase 39 U/L (38-126); Anion Gap 11 mmol/L (4-12); Aspartate Amino Transferase 20 U/L (14-36); Bilirubin,Total 0.3 mg/dL (0.2-1.3); Blood Urea Nitrogen 9 mg/dL (7-17); Carbon Dioxide 17 mmol/L (22-30); Chloride 112 mmol/L (98-107); Cholesterol 220 mg/dL (0-200); Estimated Glomerular Filt Rate > 60; Glucose 97 mg/dL (65-110); HDL Direct 74 mg/dL; Potassium 3.2 mmol/L (3.4-5.0); Sodium 140 mmol/L (137-145); Total Protein 7.8 g/dL (6.3-8.2); Triglycerides 254 mg/dL (<150)
[2025-02-11 11:29] LABS: LDL Cholesterol Direct 88 mg/dL
[2025-02-11 11:53] LABS: Iron 119 ug/dL (37-170)
[2025-02-11 11:59] LABS: Hemoglobin A1C. 4.9 % (<5.7)
[2025-02-11 12:02] LABS: Percent Iron Saturation 34 % (20-50)
[2025-02-11 12:24] LABS: Folic Acid 4.9 ng/mL (2.76->20)
[2025-02-11 12:41] LABS: Vitamin D 25 Hydroxy 30.4 ng/mL
[2025-02-13 11:53] LABS: Homocysteine. 12.8 umol/L (< or = 10.9)
== END 2025-02-11 09:57 | disposition home or self-care (01) ==
DX: O99.345 Other mental disorders complicating the puerperium (principal); F41.8 Other specified anxiety disorders; Z3A.00 Weeks of gestation of pregnancy not specified
CPT/HCPCS: 36415; 80053; 80061; 82139; 82306; 82607; 82728; 82746; 83036; 83090; 83540; 83550; 84443; 85027

== ENCOUNTER 2025-05-30 14:06 | Outpatient (CLI) | payer OTHER, SELFPAY ==
[2025-05-30 14:38] LABS: Hematocrit 40.6 % (37.0-47.0); Hemoglobin 12.9 g/dL (12.0-15.0); Mean Corpuscular HGB Conc 31.8 g/dl (32-36); Mean Corpuscular Hemoglobin 30.3 pg (26-34); Mean Corpuscular Volume 95.3 fl (80-100); Platelet Count Result 278 k/mm3 (150-375); Red Blood Count 4.26 M/mm3 (4.2-5.4); White Blood Count 8.9 K/mm3 (4.5-10.0)
[2025-05-30 15:23] LABS: Alanine Aminotransferase 14 U/L (6-35); Albumin Level 4.5 g/dL (3.5-5.1); Alkaline Phosphatase 71 U/L (38-126); Anion Gap 10 mmol/L (4-12); Aspartate Amino Transferase 18 U/L (14-36); Bilirubin,Total 0.5 mg/dL (0.2-1.3); Blood Urea Nitrogen 12 mg/dL (7-17); Calcium 8.9 mg/dL (8.4-10.2); Carbon Dioxide 19 mmol/L (22-30); Chloride 106 mmol/L (98-107); Estimated Glomerular Filt Rate > 60; Glucose 78 mg/dL (65-110); Potassium 3.2 mmol/L (3.4-5.0); Sodium 135 mmol/L (137-145); Total Protein 7.2 g/dL (6.3-8.2)
[2025-05-30 15:59] LABS: Thyroid Stimulating Hormone 2.390 uIU/mL (0.465-4.680); Total Triiodothyronine (T3) 0.68 NG/ML (0.82-1.58)
--- OUTSIDE RECORDS SUMMARY | 2025-05-30 16:19 | XMS_ITS | Clinical Summary ---
Author Organization [address] Address [facility] [place] [address] Care Team Providers Care Nurseryman Assistant Name Role Phone Darlyn Wills MD Primary Care Provider [phone] Mateusz Reed MD Unavailable [phone] Allergies No known active allergies Medications acetaZOLAMIDE [...] (two) times a day as needed Active fluconazole (DIFLUCAN) 150 mg tablet Take one tab now. Repeat in 7 days if symptoms persist. 2 tablet 07/08/2024 Active amoxicillin-cla vulanate (AUGMENTIN) 875-125 mg per tablet Take 1 tablet by mouth 2 (two) times a day 20 tablet 03/31/2025 Active Active Problems Problem Noted Date Diagnosed Date Shoulder strain 03/20/2022 Seasonal allergic rhinitis 03/20/2022 Posterior rhinorrhea 03/20/2022 Tonsillitis 03/20/2022 Pharyngitis 03/20/2022 Allergic conjunctivitis 03/20/2022 Hypokalemia 02/08/2021 Second 07/14/2020 Overview (03/20/2022): A+, Neg antibody, Immune-rubella status, Rpr-NR, Hbsag-NR, HIV-NR H/H/P 14.5/44.4/311 Idiopathic intracranial hypertension 08/16/2017 Asthma affecting , antepartum 8 Encounters Date Type Department Care Team Description 03/31/2025 9:50 AM CDT E-Visit [facility] Virtual Care [address] [place] [address] Dinora Avendano NP E-Visit for Sinus 03/31/2025 Patient Self-Triage [facility] [address] [place] [address] Mychart, Generic Provider from Last 3 Months Social History Tobacco Use Types Packs/Day Years [...] Comments Blood Pressure 102/60 08/31/2023 10:28 AM BENCH TECHNICIAN Pulse 88 03/20/2022 3:15 PM CDT Temperature 37.1 C (98.8 F) 03/20/2022 3:15 PM CDT Respiratory Rate 17 08/31/2023 10:28 AM BENCH TECHNICIAN Oxygen Saturation 97% 03/20/2022 3:15 PM CDT Inhaled Oxygen Concentration - - Weight 48.1 kg (106 lb) 08/31/2023 10:28 AM BENCH TECHNICIAN Height 160 cm (5' 3) 08/31/2023 10:28 AM BENCH TECHNICIAN Body Mass Index 18.78 08/31/2023 10:28 AM BENCH TECHNICIAN Plan of Treatment Health Maintenance Due Date Last Done Comments Cervical Cancer Screening 1998 Depression Screening 1998 Hepatitis C Screening 1998 HPV Vaccines (3 - 2-dose series) 09/26/2009 06/02/20 09, 03/26/2009 Regular Well Visit/Exam 18-64 02/18/2016 Pneumococcal vaccine <65 (1 of 2 - PCV) 2017 Influenza Vaccine (#1) 2025 9, 05/22/2018, 06/02/2009 DTaP/Tdap/Td Vaccine (8 - Td or Tdap) 02/07/2028 02/06/2018, 03/26/2009, 03/08/2003, Additional history exists Hepatitis B Screening Completed 1998 , 1998, 1998 Varicella Vaccines Completed 04/16/2008, 04/10/1999 Insurance [facility] Care Teams Nurseryman Assistant Relationship Specialty Start Date End Date Darlyn Wills MD [facility] [place] [address] PCP - General Family Medicine 09/14/22 Mateusz Reed MD [address] [place] [address] Family Medicine 09/14/22
--- OUTSIDE RECORDS SUMMARY | 2025-05-30 16:19 | XMS_ITS | Clinical Summary ---
Author Organization [facility] Care Team Providers Care Professional Poker Player Name Role Phone Unavailable Primary Care Provider Unavailabl e Social History Tobacco Use Types Packs/Day Years Used Date Smoking Tobacco: Never Assessed Comments Unknown Sex and Gender Information Value Date Recorded Sex Assigned at Not on file Legal Sex Female 11:43 AM SENIOR UI SOFTWARE ENGINEER Gender Identity Not on file Sexual Orientation Not on file Plan of Treatment Health Maintenance Due Date Last Done Comments Hepatitis C Virus (HCV) Screening 1998 TdaP Immunization 1998 Hepatitis B Immunization (1 of 3 - 19+ 3-dose series) 2017 Human Papillomavirus (HPV) Immunization (1 - 3-dose SCDM series) 2025 Influenza Immunization (#1) 2025 SARS-COV-2 Immunization ( season) 2025 Respiratory Syncytial Virus (RSV) Immunization (Adult) (1 [...]
--- OUTSIDE RECORDS SUMMARY | 2025-05-30 16:19 | XMS_ITS | Clinical Summary ---
Author Organization [facility] Address [address] [place] [address] Care Team Providers Care Trash Collector Name Role Phone Terell Ta MD Primary Care Provider [phone] Source Comments [facility],non-owned Affiliates and Associated Physician Practices is amultiple site organization consisting of ambulatory clinics and hospital sitesin [place], [place], [place] and [place]. This disclosure is being madepursuant to the Care Everywhere program and may not contain all information available regarding this patient. Last updated 18.[facility] Allergies No known active allergies Medications * Be aware that medications may not be up to date on this document. Alwaysverify current medications with the patient. Vit-Fe Fumarate-FA ( VITAMIN) 28-0.8 MG tablet Take 1 tablet by mouth once daily Active cetirizine (ZYRTEC) 10 MG tablet Take 10 mg by mouth once daily Active acetaminophen (TYLENOL) 325 MG tablet Take 650 mg by mouth every 4 hours as needed for Fever or Pain Maximum allowable Acetaminophen amount = 4 Grams (4000 mg) / 24 hours. Active riboflavin 400 MG capsuleIndications :Idiopathic intracranial hypertension,Chron ic nonintractable headache, unspecified headache type Take 1 capsule by mouth once daily 30 capsule 6 08/17/19 18 Active acetaZOLAMIDE ER 12hr (DIAMOX SEQUEL) 500 MG capsule Active gabapentin (NEURONTIN) 300 MG capsule Take 1 capsule by mouth 2 times daily 60 capsule 4 05/25/20 18 Active Additional Information Patient not taking.Reported on 07/16/2020 ferrous sulfate 325 (65 FE) MG tablet Take 325 mg by mouth once daily Active sertraline (ZOLOFT) 100 MG tabletIndications: Generalized Anxiety Disorder,Major Depressive Disorder Take 100 mg by mouth once daily Reasons: Generalized Anxiety Disorder, Major Depressive Disorder Active pyridoxine 25 MG tablet Take 50 mg by mouth once daily Active ondansetron (ZOFRAN) 4 MG tabletIndications: Nausea and Vomiting Take 4 mg by mouth every 6 hours as needed for Nausea/Vomiting Reasons: Nausea and Vomiting Active Active Problems Patient Care Coordination No te Formatting of this note migh t be different from the original. Per US report in Media 16mm Thin-walled structure seen between amnion and chorion @13w Problem Noted Date Diagnosed Date Second 07/14/2020 Overview (07/14/2020): A+, Neg antibody, Immune-rubella status, Rpr-NR, Hbsag-NR, HIV-NR H/H/P 14.5/44.4/311 Idiopathic intracranial hypertension 08/16/2017 Asthma affecting , antepartum 8 Family History Medical History Relation Name Comments CAD (Coronary Artery Disease) Father Hypertension Maternal Grandmother Thyroid Disease Maternal Grandmother hype rthyroid Thyroid Disease Mother hypothyroid Relation Name Status Comments Father Maternal Grandmother Mother Social History Tobacco Use Types Packs/Day Years Used Date Smoking Tobacco: Former Cigarettes Q uit: 05/27/2017 Smokeless Tobacco: Never Alcohol Use Standard Drinks/Week Comments No 0 (1 standard drink = 0.6 oz pur e alcohol) Comments No Sex and Gender Information Value Date Recorded Sex Assigned at Not on file Legal Sex Female 5:41 PM CDT Gender Identity Not on file Sexual Orientation Bisexual 04/12/2022 3: 56 PM CDT Last Filed Vital Signs Vital Sign Reading Time Taken Comments Blood Pressure 116/60 07/16/2020 9:04 AM BUCK SWAMPER Pulse 77 07/16/2020 9:04 AM BUCK SWAMPER Temperature 36.2 C (97.2 F) 07/16/2020 9:04 AM BUCK SWAMPER Respiratory Rate 16 04/15/2016 1:01 PM CDT Oxygen Saturation 100% 04/20/2013 11:05 PM CDT Inhaled Oxygen Concentration - - Weight 49.7 kg (109 lb 9.6 oz) 07/16/2020 9:04 A M BUCK SWAMPER Height 160 cm (5' 3) 07/16/2020 9:04 AM BUCK SWAMPER Body Mass Index 19.41 07/16/2020 9:04 AM BUCK SWAMPER Plan of Treatment Health Maintenance Due Date Last Done Comments HIV SCREENING 2013 HEPATITIS C SCREENING 02/13/2016 DTAP/TDAP/TD VACCINES (1 - Tdap) 2017 HEPATITIS B VACCINE (1 of 3 - 19+ 3-dose series) 2017 PNEUMOCOCCAL VACCINE (1 of 2 - PCV) 2017 PAP SMEAR 2019 DEPRESSION SCREENING 08/15/2024 HPV VACCINE (1 - 3-dose SCDM series) 2025 COVID-19 VACCINE (1 - 2023-2 5 season) 2025 INFLUENZA VACCINE (#1) 2025 ZOSTER VACCINE (1 of 2) 02/18/2048 HIB VACCINE Aged Out No longer eligi ble based on patient's age to complete this topic MENINGOCOCCAL (Group B) VACC INE SHARED DECISION-MAKING Aged Out No longer eligibl e based on patient's age to complete this topic MENINGOCOCCAL GROUPS A/C/Y/W VACCINE Aged Out No longer eligible b ased on patient's age to complete this topic Insurance [address] [place], [place] [id number] [place] [address] Advance Directives Documents on File Type Date Recorded Patient Biomedical Engineer Expl anation Adv Directive/Living Will/POA 04/20/2013 8:21 PM Care Teams Trash Collector Relationship Specialty Start Date End Date Terell Ta MD [address] [facility] [place] [address] PCP - General Pediatrics 02/23/16
[2025-05-30 17:21] LABS: Lithium 0.4 mmol/L (0.6-1.2)
[2025-05-30 17:48] LABS: Free T4 Free Thyroxine 1.07 ng/dL (0.78-2.19)
== END 2025-05-30 14:07 | disposition home or self-care (01) ==
DX: F31.81 Bipolar II disorder (principal)
CPT/HCPCS: 36415; 80053; 80178; 84439; 84443; 84480; 85027

== ENCOUNTER 2025-07-08 12:19 | Outpatient (CLI) | payer OTHER, SELFPAY ==
[2025-07-08 13:01] LABS: Hematocrit 45.0 % (37.0-47.0); Hemoglobin 14.2 g/dL (12.0-15.0); Immature Granulocyte Percent A 0.3 % (0-0.5); Lymphocytes Absolute Auto 1.66 K/mm3 (0.9-3.2); Mean Corpuscular HGB Conc 31.6 g/dl (32-36); Mean Corpuscular Hemoglobin 30.3 pg (26-34); Mean Corpuscular Volume 96.2 fl (80-100); Nucleated Red Blood Cells Absolute Auto 0.000 K/mm3 (0.0-0.012); Nucleated Red Blood Cells Perc 0.0 % (0.0-0.2); Platelet Count Result 333 k/mm3 (150-375); Red Blood Count 4.68 M/mm3 (4.2-5.4); White Blood Count 7.0 K/mm3 (4.5-10.0)
[2025-07-08 13:18] LABS: Add Urine Microscopic? YES; Appearance Urine Cloudy (Clear); Glucose Urine UA Negative (Negative); Leukocyte Esterase Ur Trace LEU/UL (Negative); Nitrate Urine Negative (Negative); Non Pathogenic Casts 0-2; Specific Grav Ur 1.020 (1.001-1.035)
[2025-07-08 13:28] LABS: Alanine Aminotransferase 11 U/L (6-35); Albumin Level 4.6 g/dL (3.5-5.1); Alkaline Phosphatase 67 U/L (38-126); Anion Gap 13 mmol/L (4-12); Aspartate Amino Transferase 19 U/L (14-36); Bilirubin,Total 0.8 mg/dL (0.2-1.3); Blood Urea Nitrogen 5 mg/dL (7-17); Calcium 9.7 mg/dL (8.4-10.2); Carbon Dioxide 18 mmol/L (22-30); Chloride 107 mmol/L (98-107); Estimated Glomerular Filt Rate > 60; Glucose 65 mg/dL (65-110); Potassium 3.2 mmol/L (3.4-5.0); Sodium 138 mmol/L (137-145); Total Protein 7.4 g/dL (6.3-8.2)
--- OUTSIDE RECORDS SUMMARY | 2025-07-08 14:09 | XMS_ITS | Clinical Summary ---
Author Organization [place] [id number] 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 [employer] Name Role Phone Darlyn Wills MD Primary Care Provider [phone] Mateusz Reed MD Unavailable [phone] Allergies No known active allergies Medications acetaZOLAMIDE (DIAMOX) 250 mg tablet Take 1 tablet (250 mg total) by mouth 2 (two) times a day 1 Active potassium chloride ER 20 mEq CR tablet Take 1 tablet (20 mEq total) by mouth daily 2 Active clonazePAM (KlonoPIN) 1 mg tablet Take 1 tablet (1 mg total) by mouth 2 (two) times a day as needed Active amoxicillin-cla vulanate (AUGMENTIN) 875-125 mg per tablet Take 1 tablet by mouth 2 (two) times a day 20 tablet 5 Active fluconazole (DIFLUCAN) 150 mg tablet Take one tab now. Repeat in 7 days if symptoms persist. 2 tablet 4 06/29/20 25 Discontinue d(Reorder) doxycycline (doxycycline hyclate) 100 mg capsule Take 1 tablet/capsu le (100 mg total) by mouth 2 (two) times a day for 7 days 14 tablet/capsu le 5 07/06/20 25 fluconazole (DIFLUCAN) 150 mg tablet Take one tab by mouth at onset of symptoms as directed. May repeat in 4 days if symptoms persist. 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 Virtual Care [address] [place] [phone] Nkechi Hughes NP Your Medications 06/29/2025 Patient Self-Triage [facility] [address] [place] [address] Mychart, Generic Provider from Last 3 Months [...] Comments Blood Pressure 102/60 08/31/2023 10:28 AM HARD [employer] HAND ENGRAVER Pulse 88 03/20/2022 3:15 PM CDT Temperature 37.1 C (98.8 F) 03/20/2022 3:15 PM CDT Respiratory Rate 17 08/31/2023 10:28 AM HARD [employer] HAND ENGRAVER Oxygen Saturation 97% 03/20/2022 3:15 PM CDT Inhaled Oxygen Concentration - - Weight 48.1 kg (106 lb) 08/31/2023 10:28 AM HARD [employer] HAND ENGRAVER Height 160 cm (5' 3) 08/31/2023 10:28 AM HARD [employer] HAND ENGRAVER Body Mass Index 18.78 08/31/2023 10:28 AM HARD [employer] HAND ENGRAVER Plan of Treatment Health Maintenance Due Date Last Done Comments Cervical Cancer Screening 1998 Depression Screening 1998 Hepatitis C Screening 1998 HPV Vaccines (3 - 2-dose series) 09/26/2009 06/02/20 09, 03/26/2009 Regular Well Visit/Exam 18-64 02/18/2016 Pneumococcal vaccine <65 (1 of 2 - PCV) 2017 Influenza Vaccine (#1) 2025 , 04/19/2019, 05/22/2018, Additional history exists DTaP/Tdap/Td Vaccine (9 - Td or Tdap) 10/12/2031 10/12/2021, 02/06/2018, 03/26/2009, Additional history exists Hepatitis B Screening Completed 1998 , 1998, 1998 Varicella Vaccines Completed 04/16/2008, 04/10/1999 Insurance [facility] [place] [id number] [facility] Care Teams Supervisor [employer] Relationship Specialty Start Date End Date AlfredoDarlyn Hough MD [address] [place] [address] [place] [address] PCP - General Family Medicine 09/14/22 Mateusz Reed MD [address] [place] [address] [place] [address] Family Medicine 09/14/22
--- OUTSIDE RECORDS SUMMARY | 2025-07-08 14:09 | XMS_ITS | Clinical Summary ---
Author Organization [facility] Address [address] [place] [address] Care Team Providers Care Uniformer Name Role Phone Terell Ta MD Primary Care Provider [phone] Source Comments [facility],non-owned Affiliates and Associated Physician Practices is amultiple site organization consisting of ambulatory clinics and hospital sitesin [place], [place] and [place]. This disclosure is being madepursuant to the Care Everywhere program and may not contain all information available regarding this patient. Last updated 18.[facility] Allergies No known active allergies Medications * [...] Years Used Date Smoking Tobacco: Former Cigarettes 0.5 Q uit: 05/27/2017 Smokeless Tobacco: Never Alcohol [...] Comments Blood Pressure 116/60 07/16/2020 9:04 AM FAGOTER Pulse 77 07/16/2020 9:04 AM FAGOTER Temperature 36.2 C (97.2 F) 07/16/2020 9:04 AM FAGOTER Respiratory Rate 16 04/15/2016 1:01 PM CDT Oxygen Saturation 100% 04/20/2013 11:05 PM CDT Inhaled Oxygen Concentration - - Weight 49.7 kg (109 lb 9.6 oz) 07/16/2020 9:04 A M FAGOTER Height 160 cm (5' 3) 07/16/2020 9:04 AM FAGOTER Body Mass Index 19.41 07/16/2020 9:04 AM FAGOTER Plan of Treatment Health Maintenance Due Date Last Done Comments HIV SCREENING 2013 HEPATITIS C SCREENING 02/13/2016 DTAP/TDAP/TD VACCINES (1 - Tdap) 2017 HEPATITIS B VACCINE (1 of 3 - 19+ 3-dose series) 2017 PNEUMOCOCCAL VACCINE (1 of 2 - PCV) 2017 PAP SMEAR 2019 DEPRESSION SCREENING 08/15/2024 HPV VACCINE (1 - 3-dose SCDM series) 2025 COVID-19 VACCINE (1 - 2024-2 6 season) 2025 INFLUENZA VACCINE (#1) 2025 ZOSTER [...] to complete this topic Insurance [address] [place], [place] [id number] [place] [address] Advance Directives Documents on File Type Date 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
--- OUTSIDE RECORDS SUMMARY | 2025-07-08 14:09 | XMS_ITS | Data Portability ---
Author Organization [place] [facility], Main Office Address [address] [place] [address] Care Team Providers Care Senior Tax Manager Name Role Phone ANSON DAMIAN Primary Care Provider [phone] ANSON DAMIAN Referring Provider Assessment Encounter Date Assessment Date Assessment LastModified by Organization Details LastModified Time 12/13/2024 12/13/2024 The patient has patellofemoral pain both knees as described this seems to be localized to the patellofemoral articulations. We talked about treatment options in detail today I have advised her that therapy for VMO strengthening is banerjee to treating this problem as well as [...] for any further problems difficulties or questions. Not available 12/13/2024 11:47:23 02/05/2025 02/05/2025 The patient has bilateral shoulder pain not due to any known trauma or injury. The left side hurts worse than the right. She describes aching pain but no mechanical symptoms. She has no weakness. We talked about treatment options today in detail I think she would benefit from starting with a course of physical therapy for strengthening and stabilization of both shoulders. I have advised her to do the exercises on her own at home daily. We will give her a short course of oral prednisone she will hold on the diclofenac while she is on the prednisone. We will also get some blood work to check for inflammation and rheumatoid factor and REDD etc.. I will see her back once these labs are done she may need referral to a order entry technician we will see how she does after couple of months of physical therapy, treatment and time. She voiced understanding agrees above plan she will call for any further problems difficulties or questions. Not available 02/05/2025 10:50:31 Plan of Treatment Reminders Order Date Submit Date Provider Last Modified By Organization Details Last Modified Time Details Appointments None recorded. Lab CMP, serum or plasma [address] [facility], [address] [place], [address], 5 04:10:20 vitamin D, 25-hydroxy , total, serum [address] [facility], [address] [place], [address], 5 04:10:19 vitamin B12 + folate, serum or blood [address] [facility], [address] [place], [address], 5 04:10:19 CBC w/ auto diff [address] [facility], [address] [place], [address], 5 04:10:19 TSH, serum or plasma [address] [facility], [address] [place], [address], 5 04:10:20 iron + total iron-elton ng capacity (TIBC), serum [address] [place] [address] - Outpatient Lab, [address] [place] [address], [address], 5 08:16:15 REDD + rf (antinucle ar antibodies + rheumatoid factor), quantitati ve, serum [address] [place] [address] (Lab), [address] [place] [address], [address], 5 10:26:53 C-reactive protein, quantitati ve, serum or plasma [address] [place] [address] (Lab), [address] [place] [address], [address], 5 10:26:53 dsDNA Ab, serum [address] [place] [address] (Lab), [address] [place] [address], [address], 5 10:26:53 scleroderm a (scl-70) Ab, serum [address] [place] [address] (Lab), [address] [place] [address], [address], 5 10:26:53 ccp (cyclic citrullina lyndsay peptide) iga+igg, serum [address] [place] [address] (Lab), [address] [place] [address], [address], 5 10:26:53 C3 + C4 (complemen t), serum [address] [place] [address] (Lab), [address] [place] [address], [address], 5 10:26:53 complement , total, CH50, serum or plasma [address] [place] [address] (Lab), [address] [place] [address], [address], 5 10:26:53 sjogren antibody panel (ssa, ssb, ro, la), serum [address] (Lab), [address] [place] [address], [address], 5 10:26:53 rf (rheumatoi d factor), serum [address] (Lab), [address] [place] [address], [address], 5 10:26:53 Hinds ALINE Ab + TECHNICAL IMPLEMENTATION LEAD ALINE Ab, quant immunoassa y, serum [address] (Lab), [address] [place] [address], [address], 5 10:26:53 uric acid, serum or plasma [address] (Lab), [address] [place] [address], [address], 5 10:26:53 drug of abuse panel, urine 2024 025 [facility] (Lab), [address] [place], [address], 5 11:44:13 CBC w/ auto diff 2023 024 [facility], [address] [place], [address], 4 19:52:24 CMP, serum or plasma [email or web address], [address] [place], [address], 4 08:05:43 lipid panel, serum 2023 024 [facility], [address], [place], [address], 4 08:05:44 Referral physical therapist referral - Please contact patient to schedule 2024 025 [facility] [place] [facility], [address], [place], [address], 5 11:08:48 gastroente rologist referral - Please call [patient to schedule an appointmen t. Thank you. 2024 025 PEDRITO Kolb MD, [address] [facility] [address], [place], [address], 5 12:50:46 neurologis t referral - Please call patient to schedule an appointmen t. Thank you. 2024 025 [email or web address] [facility], [address] [place] [address], [address], [place], [address], 5 09:02:28 physical therapist referral - please contact patient to schedule 2024 025 [email or web address] [facility], [address], [place], [address], 5 16:45:11 Procedures injection/ aspiration joint/burs a (PROC) 2024 025 [email or web address] In-Office Order, Internal Use Only DO Not Attach Compendium DO Not Attach Compendium, Do Not Delete/merge, [id number] 11:43:13 Surgeries None recorded. Imaging XR, shoulder, 2 or more view 2024 025 [email or web address] [facility] [place], [address], [place], [address], 10:51:05 XR, knee, 3 view 2024 [email or web address] [facility] [place], [address], [place], [address], 11:47:52 Medication Orders prednisone 10 mg tablets in a dose pack [address] [facility], [address], [place], [place], [id number], 11:52:53 omeprazole 20 mg capsule,de layed release 2024 [facility]03558, [address], [place], [place], [id number], 09:40:41 clonazepam 1 mg tablet 2024 [facility]18, [address], [place], [place], [id number], 09:40:44 bupivacain e HCl 0.5 % (5 mg/mL) injection solution 2024 [facility]87094, [address], [place], [place], [id number], 09:06:30 Kenalog 10 mg/mL suspension for injection [address] [facility]24650, [address], [place], [place], [id number], 08:53:06 diclofenac sodium 75 mg tablet,del ayed release 2024 [facility]84102, [address], [place], [id number], 5 09:06:51 amoxicilli n 500 mg capsule 2023 024 [facility], [address], [place], [place], [id number], 5 11:10:31 fluconazol e 150 mg tablet 2023 024 [facility], [address], [place], [place], [id number], 11:52:36 Patient TargetsNo targets recorded. Patient Instructions Encounter Date Encounter Id Patient Instructions Last Modified By Organization Details Last Modified Time 03/21/2024 [id number] she said her ob gives fluconazole when she is , I advised she get their approval before taking still [email or web address] Not available 03/21/2024 14:33:33 Reason for Referral Physical Therapist Referral for Pain of knee region please contact patient to schedule patient has bilateral anterior knee pain and PF maltracking Referring Physician: Ajay Verdin, Orthopedic Surgery, Encounter Date: 12/13/2024 Neurologist Referral for His tory of idiopathic intracranial hypertension Please call patient to schedule an appointment. Thank you. Referring Physician: Anson Damian [facility], Encounter Date: 01/29/2025 Director Of Clinical Services Referral for Nausea and vomiting Please call [patient to schedule an appointment. Thank you. Referring Physician: Anson Damian [facility], Encounter Date: 01/29/2025 Physical Therapist Referral for Pain of bilateral shoulder regions Please contact patient to schedule Referring Physician: Ajay Verdin, Orthopedic Surgery, Encounter Date: 02/05/2025 Results Created Date Observation Date Name Description Value Unit Range Abnormal Flag Note LastModifiedBy Organization Detail LastModifiedTime 07/23/20 24 07/20/2024 US, obste tric No observ ation record ed. [email or web address] [place] [address] [address], [place], [address], 08/03/2024 09:03:14 10/25/19 25 10/24/2024 XR, chest , 1 view No observ ation record ed. [place] [id number] [facility] [address], [place], [address], 04/08/2025 14:51:45 10/25/19 25 10/24/2024 CT, abdom en + pelvi s, w/o contr ast No observ ation record ed. [address] [facility] [address], [place], [address], 04/08/2025 14:52:09 10/25/19 25 10/24/2024 US, abdom en No observ ation record ed. [address] [facility] [address], [place], [address], 04/08/2025 14:52:28 12/14/19 25 XR, knee, 3 view No observ ation record ed. [email or web address] [facility] [place] [address], [place], [address], 12/13/2024 11:46:30 02/06/20 25 XR, shoul susana, 2 or more view No observ ation record ed. [email or web address] [facility] [place] [address] [facility] [address], [place], [address], 02/05/2025 10:51:04 Result Notes None recorded. Problems Name Problem SNOMED Code Status Onset Date Resolution Date Notes Provider Name and Address Organization Details Recorded Time History of idiopathi c intracran ial hypertens ion 25876836914 960449 Active 2022 Not Available [facility] 3 01:48:50 Patellofe moral stress syndrome 788989429 Active 2022 Not Available [facility] 3 01:48:50 Patellofe moral stress syndrome 460076260 Active 2022 Not Available [facility] 3 01:48:50 Chronic hypokalem ia 09315953 Active 2022 Darlyn Wills MD [address], [address], [place], [address] , [facility] 3 19:37:37 Anxiety 36893170 Active 2022 EDUAR Nash [address], [address], [place], [address] , [facility] 3 13:16:00 Dental abscess 430433542 Completed 202301/29/2025 LIV Mayes [address], [address], [place], [address] , [facility] 5 09:18:27 Adult health examinati on Active 2023 EDUAR Nash [address], [address], [place], [address] , [facility] [place] [facility] 4 14:32:20 [id number] Completed 202301/29/2025 LIV Mayes [address], [address], [place], [address] , [facility] 5 09:18:24 Anemia 388792754 Active 2023 EDUAR Nash [address], [address], [place], [address] , [facility] [place] [facility] 4 12:14:19 Depressiv e disorder 95004052 Active 2024 EDUAR Nash [address], [address], [place], [address] , [facility] [place] [facility] 5 13:41:53 Pain of knee region 4838132447 Active 2024 MARCY Dubois, [place] [facility] 5 11:17:17 Patellofe moral syndrome of bilateral knees 49887561468 439974 Active 2024 EDUAR Shaw [address], [address], [place], [address] , [facility] 5 11:44:09 Migraine variants, not intractab le 609379677 Active 2024 LIV Mayes [address], [address], [place], [address] , [facility] 5 09:10:26 Nausea and vomiting 43846821 Active 2024 LIV Mayes [address], [address], [place], [address] , [facility] 5 09:15:20 Pain of bilateral shoulder regions Active 2024 Kim Ware CNA null, [facility] 5 09:22:22 Pain of multiple joints 30522533 Active 2024 Niki Sanabria null, [facility] 5 09:49:08 Paronychi a of toe of right foot 67787246569 301407 Active 2024 LIV Mayes [address], [address], [place], [address] , [facility] 5 10:56:03 Migraine 28428060 Active 2024 LIV Mayes [address], [address], [place], [address] , [facility] 5 16:57:50 Episodic migraine 08318656050 4106 Active 2024 LIV Mayes [address], [address], [place], [address] , [facility] 5 17:28:56 Fatigue 87877376 Active 2024 LIV Mayes [address], [address], [place], [address] , [facility] 5 12:04:23 Hypokalem ia 97520211 Active 2024 Anson Damian, VIDEO SPECIALIST [address] [facility] [facility] [address], [place], [address] , [facility] 12:05:31 Problem Notes None recorded. Procedures Surgical History Date Name Laterality Status Provider Name and Address Organization Details Recorded Time Sinus Surgery completed Not Available [facility] 10/14/2022 01:48:26 Imaging Results None recorded. Procedure Notes None recorded. Medical Equipment None [...] Not Available Not Available potassium chloride ER 10 mEq capsule,e xtended release TAKE 2 CAPSULES BY MOUTH ONCE DAILY DIRECTED active Not Available Not Available No t Available clonidine HCl 0.1 mg tablet TAKE 1 TABLET BY MOUTH TWICE DAILY active Not Available Not Available No t Available venlafaxi ne ER 75 mg capsule,e [...] mg tablet TAKE 1 TABLET BY MOUTH 1 TIME ONLY. MAY REPEAT 1 TIME AFTER 4 DAYS 04/18 completed Not Available Not Available Not Available fluconazo le 200 mg tablet TAKE 1 TABLET BY MOUTH EVERY 72 HOURS 03/21 completed Not Available Not Available Not Available metronida zole 0.75 % (37.5 mg/5 gram) vaginal gel INSERT 1 APPLICAT ORFUL VAGINALL Y EVERY DAY AT BEDTIME FOR 5 DAYS 04/18 completed Not Available Not Available Not Available ondansetr on HCl 4 mg tablet TAKE 1 TABLET BY MOUTH EVERY 6 HOURS 12/13 completed Not Available Not Available Not Available bupivacai ne HCl 0.5 % (5 mg/mL) injection solution Take 40 mg by injectio n route. 01/29 completed Not Available Not Available Not Available clonazepa m 0.5 mg tablet TAKE 1 TABLET BY MOUTH TWICE DAILY NEEDED 04/18 completed Not Available Not Available Not Available sertralin e 100 mg tablet TAKE 1 TABLET BY MOUTH EVERY DAY 09/14 completed Not Available Not Available Not Available terconazo le 0.8 % vaginal cream INSERT 1 APPLICAT ORFUL VAGINALL Y EVERY NIGHT FOR 3 DAYS DIRECTED 04/18 completed Not Available Not Available Not Available clonazepa m 1 mg tablet TAKE 1 TABLET BY MOUTH TWICE DAILY NEEDED active Not Available Not Available No t Available acetazola mide 250 mg tablet TAKE 1 TABLET BY MOUTH TWICE DAILY active Not Available Not Available No t Available lithium carbonate ER 300 mg tablet,ex tended release TAKE 1 TABLET BY MOUTH EVERY DAY active Not Available Not Available No t Available potassium chloride ER 10 mEq tablet,ex tended release TAKE 2 CAPSULES BY MOUTH ONCE DAILY DIRECTED active Not Available Not Available No t [...] MOUTH EVERY 12 HOURS FOR 7 DAYS DIRECTED 04/18 completed Not Available Not Available Not Available triamcino lone acetonide 0.1 % topical cream APPLY TOPICALL Y TO THE AFFECTED AREA TWICE DAILY NEEDED FOR VULVAR ITCHING 03/21 completed Not Available Not Available Not Available lithium carbonate ER 450 mg tablet,ex tended release TAKE 1 TABLET BY MOUTH EVERY DAY active Not Available Not Available No t Available lamotrigi ne 25 mg tablet 09/14 completed Not Available Not Available Not Available potassium chloride 20 mEq/15 mL oral liquid 05/01 /2025 completed Not Available Not Available Not Available prednison e 10 mg tablets in a dose pack Take 1 tab by mouth, 3 times a day for 3 daysTake 1 tab by mouth 2 times a day for 2 daysTake 1 tab by mouth once a day for 1 day 04/18 completed Not Available Not Available Not Available oxycodone -acetamin ophen 5 mg-325 mg tablet TAKE 1 TABLET BY MOUTH EVERY 4 HOURS NEEDED FOR PAIN 01/29 completed Not Available Not Available Not Available [...] Take 40 mg by injectio n route. 01/29 completed [facility]: [id number] 12-02 Not Available Not Available Not Available paroxetin e 20 mg tablet TAKE 1 TABLET BY MOUTH EVERY DAY AT BEDTIME 09/14 completed Not Available Not Available Not Available lidocaine 5 % topical patch APPLY 1 PATCH TOPICALL Y DAILY. LEAVE ON MOST PAINFUL AREA FOR UP TO 12 HOURS. 12/13 completed Not Available Not Available Not Available omeprazol e 20 mg capsule,d elayed release TAKE 1 CAPSULE BY MOUTH TWICE DAILY BEFORE MEALS active Not Available Not Available No t Available diclofena c sodium 75 mg tablet,de layed release TAKE 1 TABLET BY MOUTH TWICE DAILY active Not Available Not Available No t Available hydroxyzi ne HCl 25 mg tablet [...] 8 HOURS NEEDED FOR NAUSEA OR VOMITING 01/29 completed Not Available Not Available Not Available fluoxetin e 20 mg capsule TAKE 1 CAPSULE BY MOUTH EVERY DAY 12/13 completed Not Available Not Available Not Available fluticaso ne propionat e 50 mcg/actua tion nasal spray,elandro pension SHAKE LIQUID AND USE 2 SPRAYS IN EACH NOSTRIL DAILY NEEDED 09/14 completed Not Available Not Available Not Available sertralin e 50 mg tablet TAKE 1 TABLET BY MOUTH DAILY 12/13 completed Not Available Not Available Not Available metoclopr amide 10 mg tablet TAKE 1 TABLET BY MOUTH EVERY 8 HOURS NEEDED active Not Available Not Available No t Available amoxicill in 875 mg-potass ium clavulana te 125 mg tablet TAKE 1 TABLET BY MOUTH TWICE DAILY 04/18 completed Not Available Not Available Not Available magnesium 12/13 completed Not Available Not Available Not Available iron 12/13 completed Not Available Not Available Not Available 12/13 completed Not Available Not Available Not Available drospiren one 3 mg-ethiny l estradiol 0.02 mg tablet TAKE 1 TABLET BY MOUTH DAILY 04/18 completed Not Available Not Available Not Available aripipraz ole 2 mg tablet TAKE 1 TABLET BY MOUTH EVERY DAY 12/13 completed Not Available Not Available Not Available quetiapin e 50 mg tablet TAKE 1 TABLET BY MOUTH AT BEDTIME 09/14 completed Not Available Not Available Not Available FeroSul 325 mg (65 mg iron) tablet TAKE 1 TABLET BY MOUTH EVERY DAY AFTER A MEAL FOR 90 DAYS active Not Available Not Available No t Available desvenlaf axine succinate ER 50 mg tablet,ex tended release 24 hr TAKE 1 TABLET BY MOUTH EVERY DAY 01/29 completed Not Available Not Available Not Available quetiapin e ER 50 mg tablet,ex tended release 24 hr TAKE 2 TABLETS BY MOUTH EVERY DAY AT BEDTIME active Not Available Not Available No t Available ropivacai ne (PF) 5 mg/mL (0.5 %) injection solution Take 40 mg by injectio n route. 12/13 completed [facility] [id number] 11-13 Not Available Not Available Not Available [...] 24 hr TAKE 1 TABLET BY MOUTH DAILY active Not Available Not Available No t Available Ubrelvy 100 mg tablet TAKE 1 TABLET BY MOUTH TWICE DAILY NEEDED FOR MIGRAINE 2024 active Not Available Not Available Not Avai lable Qulipta 60 mg tablet Take by oral route for 30 days. active Not Available Not Available No t Available Qulipta 30 mg tablet TAKE 1 TABLET BY MOUTH EVERY DAY DIRECTED active Not Available Not Available No t Available Vitals Date Recorded Body height Body mass index (BMI) Body weight Provider Name and Address Organization Details Last Updated DateTime 12/13/2024 160.02 cm 24.3 kg/m2 89679.15 g Kim Ware CNA [facility] 12/13/2024 11:10:07 Date Recorded Body height Body mass index (BMI) Body weight Body temperature Heart rate Respiratory rate Oxygen saturation Pain severity - 0-10 verbal numeric rating [Score] - Reported Systolic And Diastolic Provider Name and Address Organization Details Last Updated DateTime 5 160.02 cm 21.8 kg/m2 99828.9 1 g 97 [degF] 77 /min 20 /min 98 % 6 112/66 mm[Hg] Lupe Wagner RN [facility] 08:56:07 Date Recorded Body height Body mass index (BMI) Body weight Provider Name and Address Organization Details Last Updated DateTime 02/05/2025 160.02 cm 22.5 kg/m2 59771.23 g Kim Ware CNA [facility] 02/05/2025 09:21:21 Date Recorded Body height Body mass index (BMI) Body weight Body temperature Heart rate Oxygen saturation Respiratory rate Systolic And Diastolic Provider Name and Address Organization Details Last Updated DateTime 4 160.02 cm 19 kg/m2 31372.3 8 g 99 [degF] 91 /min 98 % 16 /min 102/46 mm[Hg] Edelmira Brandt RN [place] [facility] 4 14:08:35 Date Recorded Body height Body mass index (BMI) Body weight Body temperature Heart rate Oxygen saturation Pain severity - 0-10 verbal numeric rating [Score] - Reported Respiratory rate Systolic And Diastolic Provider Name and Address Organization Details Last Updated DateTime 5 160.02 cm 20.6 kg/m2 29459.0 6 g 97.4 [degF] 73 /min 98 % 0 20 /min 120/82 mm[Hg] Lupe Wagner RN [place] [facility] 5 11:56:21 Social History Question Answer Notes LastModified by Organizat ion Details LastModified Time Tobacco Smoking Status Current Every Day Smoker vape Not Available [facility] 10/14/2022 01:48:00 What Is Your Level Of Caffeine Consumption? Moderate Information not available 01/29/2025 In The 14 Days Before Symptom Onset, Have You Had Close Contact With A Laboratory-confi rmed COVID-19 While That Case Was Ill? No Information not available 01/29/2025 In The 14 Days Before Symptom Onset, Have You Had Close Contact With A Person Who Is Under Investigation For COVID-19 While That Person Was Ill? No Information not available 01/29/2025 What Type Of Diet Are You Following? REGULAR Information not available 01/29/2025 Which Illicit Or Recreational Drugs Have You Used? MJ Information not available 01/29/2025 Have There Been Any Changes To Your Family Or Social Situation? No Information not available 01/29/2025 Do You Use Insect Repellent Routinely? Yes Information not available 01/29/2025 [facility] Information not available 01/29/2025 How Many Children Do You Have? 3 Information not available 01/29/2025 Do You Have Any Pets? Yes Information not available 01/29/2025 What Is Your Relationship Status? Information not available 01/29/2025 Do You Use Your Seat Belt Or Car Seat Routinely? Yes [email or web address] Information not available 02/24/2023 Do You Have Smoke And Carbon Monoxide Detectors In Your Home? Yes Information not available 01/29/2025 Are You Passively Exposed To Smoke? Yes Vape Information not available 01/29/2025 Are There Any Smokers In Your House? Yes Vape Information not available 01/29/2025 Do You Participate In Social Media? Yes [email or web address] Information not available 02/24/2023 How Many Years Have You Smoked Tobacco? 12 Information not available 12/13/2024 Have You Recently Traveled Abroad? No Information not available 01/29/2025 Have You Used IV Drugs? No Information not available 01/29/2025 How Many Years Have You Used E-cigarettes Or Vape? 5 Information not available 01/29/2025 Sex: Unknown Functional Status Question Answer Note LastModified by Organizat ion Details LastModified Time Do you use any illicit or recreational drugs? Yes Information not available 01/29/2025 Do you or have you ever used any other forms of tobacco or nicotine? Yes [id number] Information not available 10/14/2022 What is your level of alcohol consumption? None Information not available 12/13/2024 Are you currently employed? No Information not available 01/29/2025 Do you or have you ever used e-cigarettes or vape? Current user of electronic cigarettes [id number] Information not available 10/14/2022 Mental Status Question Answer Note LastModified by Organization D etails LastModified Time Do you feel stressed (tense, restless, nervous, or anxious, or unable to sleep at night)? [id number] [email or web address] Information not available 02/24/2023 Family History Relationship Description Onset Age of this Age Resolved Age Notes LastModified by Organization Details LastModified Time Father No current problems or disability [id number] Not available 10/14/2022 01:48:26 Mother No current problems or disability [id number] Not available 10/14/2022 01:48:26 Medical History Condition [...] DEMENTIA N HERPES N SEIZURES/EPILEPSY N HEADACHES/MIGRAINES Y VASCULAR DISEASE N PACEMAKER N DIZZINESS N HEART DISEASE/HEART PROBLEMS N KIDNEY DISEASE N SCARLET FEVER N MULTIPLE SCLEROSIS N DEVELOPMENTAL OR BEHAVIORAL DISORDERS N MENTAL DISORDER/ILLNESS N CANCER: SPECIFY N CARDIAC ARRHYTHMIA N PNEUMONIA N ATRIAL FIBRILLATION N Gall Stones N PULMONARY EMBOLISM N AUTOIMMUNE DISEASE N Gynecological History Statement/Question Response Abnormal Pap Y Flow Moderate Date of LMP 01/03/2025 STIs/STDs N Duration of Flow (days) 5 Current Control Method None Age at Menarche 10 How many live births 2 Frequency of Cycle (Q days) 26 Sexually Active? Y Menses Monthly N Obstetrics History GPAL:G 3 P 2 0 1 2 Type Value Full Term 2 Induced 1 Living 2 Total 3 Past Encounters Encounter ID Performer Location Encounter Start Date Encounter Closed Date Diagnosis/Indication Diagnosis SNOMED-CT Code Diagnosis ICD10 Code Diagnosis IMO Codes Diagnosis Note [id number] Darlyn Wills MD [facility] [place] [address] [place] [address] [place] [address] 09/14/2022 00:00:00 09/14/2022 19:34:26 [id number] Robby Cash MD [facility] [place] [address] [facility] [address] [place] [address] 09/30/2022 00:00:00 09/30/2022 11:31:28 [id number] Darlyn Wills MD [facility] [place] [address] [place] [address] [place] [address] 02/24/2023 10:39:51 02/24/2023 11:48:21 Anxiety 07143268 F41.9 [id number] Darlyn Wills MD [facility] [place] [address] [place] [address] [place] [address] 07/18/2023 14:10:38 07/18/2023 14:39:10 History of idiopathic intracranial hypertension 1544342283 1015995 Z86.69 Chronic hypokalemia 1046 9003 E87.6 Diabetes m ellitus screening 428282700 Z13.1 Hyperlipid emia screening 001360646 Z13.220 Screening for disorder 165938960 Z13.9 Thyroid di sorder screening 529759886 Z13.29 Anxiety 20590367 F41.9 [id number] Yimi Funk MD [facility] [place] [address] [address] [place] [address] 03/21/2024 13:56:04 03/21/2024 14:33:38 Chronic hypokalemia 38856124 E87.6 Adult heal th examination 597481136 Z00.00 Z13.220 Dental abscess 262848253 K04.7 top right molar Anxiety 17261696 F41.9 05902670 Z33.1 20 weeks along [id number] Rolando Rivera MD [facility] [place] [address] [place] [address] 12/13/2024 10:50:21 12/13/2024 11:43:48 Pain of knee region 7564577669 M25.561 M25.562 M22.8X1 M22.8X2 40096717 Patellofem oral syndrome of bilateral knees 2862327364 9863792 M22.2X1 M22.2X2 97507011 [id number] Yimi Funk MD [address] [address] 01/29/2025 08:45:28 01/29/2025 09:33:05 Migraine variants, not intractable 247261059 G43.909 26175033 Samples of Qulipta and Ubrelvy given in office Anxiety 52926837 F41.9 Advised to discuss clonazepam with [facility] Nausea and vomiting 1693 1999 R11.2 25636107 Chronic, vomiting daily, has lost 14 lbs History of idiopathic intracranial hypertension 9642728340 6489904 Z86.69 Chronic headaches [id number] Rolando Rivera MD [facility] [place] [address] [place] [address] 02/05/2025 09:16:36 02/05/2025 10:06:57 Pain of bilateral shoulder regions 7933695179 07275 M25.511 M25.512 27121538 Pain of mu ltiple joints 15386470 M25.50 [id number] Yimi Funk MD [address] [address] 04/18/2025 11:43:07 04/18/2025 12:55:38 Fatigue 05506495 R53.82 236493 States hx of iron deficiency . Hypokalemia 44525972 E87 .6 9791 Currently taking potassium chloride Health Concerns Section Related Observation LastModified by Organization Detai ls LastModified Time None Recorded Concern Status LastModified by Organization Details LastModified Time None Recorded Advance Directives Directive None Recorded Payers Insurance Date Sequence Insurance Name Policy Number Policy Simeon Covered Member ID Simeon Member ID Guarantor Name 07/01/2025 1 [facility] - DOS ON OR AFTER 21 (MEDICAID REPLACEMENT - HMO) Tracy Stewart [id number] Tracy Stewart Notes Date Note Type Note Provider Name and Address Organization Details Recorded Time 4 text/html ROS as noted in the HPI 20 weeks 3rd baby. always gets a yeast infection with amox. monistat does not work . top right molar pain . swelling . EDUAR Nash [address] [place] [address], [facility] [address], [place], [address], [place] [facility] [employer] 04/02/2024 17:27:32 5 text/html the patient is a 24-year-old female [...] the patient. EDUAR Shaw [address], [facility] [address], [place], [address], [facility] [employer] [facility] [employer] [facility] 12/13/2024 11:47:27 5 text/html Tracy Stewart is a 24 year old female patient here today to establish care. She was previously under the care of Vikas Cash. Her past medical history is significant for anxiety. She is seeing psych who is giving her desvenlafaxine 25 mg daily, Quetiapine ER 50 mg 2 tabs at bedtime. She is also taking clonazepam 0.5 mg twice daily, every day. Her psychiatrist will not fill this. She has a history of idiopathic intercranial hypertension. She has chronic headaches. She is taking acetazolamide 250 mg BID.She does still have daily headaches, she usually take tylenol and ibuprofen. She has had issues with chronic nausea and vomiting, she is taking Reglan now for this. She believes this is related to her psych meds. She has lost 14 lbs since Flu shot: OVID vaccines: x2Tdap: 07/2024WWE: does annually with gynMammogram not indicatedColonoscopy not indicated LIV Mayes [address], [facility] [address], [place], [address], [employer] [facility] [employer] 01/29/2025 09:42:11 5 text/html the patient returns with new complaints today with both shoulders left worse than right. She states for the past couple of months she has had bilateral shoulder pain not due to any known trauma or injury. She has aching pain that radiates into the upper arms a bit she has pain with heavy lifting or repetitive motion or overhead motion. It does not keep her awake at night but is a moderate aggravation the pain is about a 5-6 on a scale 1-10 most days. Right side does not feel quite that bad. She has 2 small children she has to carry 1 in a car seat to get around she states it is aggravates her shoulder pain as well. She denies any weakness no locking or catching numbness tingling or instability type symptoms. She was noted on her last visit about he has a bit this laxity and hypermobility. When asked about rheumatologic history in the family or any other genetic disorder she was not completely sure. She states her mother and grandmother have arthritis but that was all she can give me. She is currently being treated for bilateral knee pain in the patellofemoral articulations. She does have a history of anxiety and depression and idiopathic intracranial hypertension. She states she has tried activity modification and currently is on diclofenac for her knees states she just started taking this so she is not sure if it has really helped her shoulders much. She comes in today for initial evaluation treatment bilateral shoulder pain as described. [age] years of age. Her previous medical history is reviewed with her today in detail. EDUAR Shaw [address], [address], [place], [address], [facility] [employer] 02/05/2025 10:52:26 5 text/html Tracy Stewart is a 25 year old female patient here today to for a 6 week FU Her past medical history is significant for anxiety. She is seeing psych who is giving her desvenlafaxine 25 mg daily, Quetiapine ER 50 mg 2 tabs at bedtime. She is also taking clonazepam 0.5 mg twice daily, every day. Her psychiatrist will not fill this. She has a history of idiopathic intercranial hypertension. She has chronic headaches. She is taking acetazolamide 250 mg BID.She does still have daily headaches, she usually take tylenol and ibuprofen.She has been taking Qulipta 60 mg, she feels like some days this gives her more migraines. She does notice Ubrelvy is effective but does not have enough to take as much as she needs She has had issues with chronic nausea and vomiting, she is taking Reglan now for this. She has lost 14 lbs sinceShe states this getting worse. She is vomiting multiple times per day now. Flu shot: OVID vaccines: x2Tdap: 07/2024WWE: does annually with gynMammogram not indicatedColonoscopy not indicated LIV Mayes [address], [address], [place], [address], [employer] [facility] [employer] [facility] 04/18/2025 13:50:17 OBGyn Episode No OBEpisode recorded.
--- OUTSIDE RECORDS SUMMARY | 2025-07-08 14:09 | XMS_ITS | Clinical Summary ---
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
--- OUTSIDE RECORDS SUMMARY | 2025-07-08 14:09 | XMS_ITS | Continuity of Care Document ---
Author Organization [place] [facility], [facility] Address [address] [facility] [place] [address] Care Team Providers Care Marketing Administrator Name Role Phone ANSON DAMIAN Primary Care Provider ANSON DAMIAN Referring Provider [phone] Assessment No assessment recorded. Plan of Treatment Reminders Order Date Submit Date Provider Last Modified By Organization Details Last Modified Time Details Appointments None recorded. Lab CMP, serum or plasma [address] [facility], [address] [place], [address], 5 04:10:20 vitamin D, 25-hydroxy , total, serum [address] [facility], [address] [place], [address], 5 04:10:19 vitamin B12 + folate, serum or blood [address] [facility], [address] [place], [address], 5 04:10:19 CBC w/ auto diff [address] [facility], [address] [place], [address], 5 04:10:19 TSH, serum or plasma [address] [facility], [address] [place], [address], 5 04:10:20 iron + total iron-elton ng capacity (TIBC), serum 2024 025 [facility] - Outpatient Lab, [address] [place], [address], 5 08:16:15 Referral None recorded. Procedures None recorded. Surgeries None recorded. Imaging None recorded. Medication Orders None recorded. Patient TargetsNo targets recorded. Patient InstructionsNo instructions recorded. Reason for Referral None Reported. Results Created Date Observation Date Name Description Value Unit Range Abnormal Flag Note LastModifiedBy Organization Detail LastModifiedTime Result Notes None recorded. Problems Name Problem SNOMED Code Status Onset Date Resolution Date Notes Provider Name and Address Organization Details Recorded Time History of idiopathi c intracran ial hypertens ion 70202645080 597283 Active 2022 Not Available [facility] 3 01:48:50 Patellofe moral stress syndrome 921467900 Active 2022 Not Available [facility] 3 01:48:50 Patellofe moral stress syndrome 071527347 Active 2022 Not Available [facility] 3 01:48:50 Chronic hypokalem ia 12608585 Active 2022 Darlyn Wills MD [address], [address], [place], [address] , [employer] 3 19:37:37 Anxiety 74819423 Active 2022 EDUAR Nash [address], [address], [place], [address] , [employer] 3 13:16:00 Dental abscess 585457607 Completed 202301/29/2025 LIV Mayes [address], [address], [place], [address] , [employer] 5 09:18:27 Adult health examinati on Active 2023 EDUAR Nash [address], [address], [place], [address] , [place] [facility] 4 14:32:20 32097541 Completed 202301/29/2025 LIV Mayes [address], [address], [place], [address] , [place] [facility] 5 09:18:24 Anemia 844563211 Active 2023 EDUAR Nash [address], [address], [place], [address] , [facility] 4 12:14:19 Depressiv e disorder 44271303 Active 2024 EDUAR Nash [address], [address], [place], [address] , [facility] 5 13:41:53 Pain of knee region 2940292730 Active 2024 Kim Ware [employer] null, [place] [facility] 5 11:17:17 Patellofe moral syndrome of bilateral knees 28442198772 081868 Active 2024 EDUAR Shaw [address], [address], [place], [address] , [facility] 5 11:44:09 Migraine variants, not intractab le 311731280 Active 2024 LIV Mayes [address], [address], [place], [address] , [place] [facility] 5 09:10:26 Nausea and vomiting 45286085 Active 2024 LIV Mayes [address], [address], [place], [address] , [place] [facility] 5 09:15:20 Pain of bilateral shoulder regions Active 2024 Kim Ware [employer] null, [place] [facility] 5 09:22:22 Pain of multiple joints 89221010 Active 2024 [facility] [employer] [facility] 5 09:49:08 Paronychi a of toe of right foot 66116536985 737681 Active 2024 LIV Mayes [address], [address], [place], [address] , [facility] [employer] [facility] 5 10:56:03 Migraine 31545338 Active 2024 LIV Mayes [address], [address], [place], [address] , [facility] [employer] [facility] 5 16:57:50 Episodic migraine 61327749910 4106 Active 2024 LIV Mayes [address], [address], [place], [address] , [facility] [employer] [facility] 5 17:28:56 Fatigue 81329565 Active 2024 LIV Mayes [address], [address], [place], [address] , [facility] [employer] [facility] 5 12:04:23 Hypokalem ia 15090535 Active 2024 LIV Mayes [address] [employer], [address], [place], [address] , [facility] [employer] [facility] 5 12:05:31 Problem Notes None recorded. Procedures Surgical [...] mg by injectio n route. 01/29 completed [facility]: 0003-049 -20 Not Available Not Available Not Available paroxetin [...] mg by injectio n route. 12/13 completed [facility] 00137-71 11-13 Not Available Not Available Not Available [...] Updated DateTime 5 160.02 cm 20.6 kg/m2 44996.0 6 g 97.4 [degF] 73 /min 98 % 0 20 /min 120/82 mm[Hg] Lupe Wagner RN [place] [facility] [employer] 5 11:56:21 Social History Question Answer Notes LastModified by Organizat ion Details LastModified Time Tobacco Smoking Status Current Every Day Smoker vape Not Available [facility] 10/14/2022 01:48:00 What Is Your [...] not available 01/29/2025 Where Do You Live? [facility] Information not available 01/29/2025 How Many Children Do You Have? 3 Information not available 01/29/2025 Do You Have Any Pets? Yes Information not available 01/29/2025 What Is Your Relationship Status? Information not available 01/29/2025 Do You Use Your Seat Belt Or Car Seat Routinely? Yes [email or web address] Information not available 02/24/2023 Do You Have Smoke And Carbon Monoxide Detectors In Your Home? Yes Information not available 01/29/2025 Are You Passively Exposed To Smoke? Yes Vape Information not available 01/29/2025 Are There Any Smokers In Your House? Yes Vape Information not available 01/29/2025 Do You Participate In Social Media? Yes [email or web address] Information not available 02/24/2023 How Many Years [...] other forms of tobacco or nicotine? Yes [id number] Information not available 10/14/2022 What is your level of alcohol consumption? None Information not available 12/13/2024 Are you currently employed? No Information not available 01/29/2025 Do you or have you ever used e-cigarettes or vape? Current user of electronic cigarettes [id number] Information not available 10/14/2022 Mental Status Question Answer Note LastModified by Organization D etails LastModified Time Do you feel stressed (tense, restless, nervous, or anxious, or unable to sleep at night)? [id number] [email or web address] Information not available 02/24/2023 Family History Relationship Description Onset Age of this Age Resolved Age Notes LastModified by Organization Details LastModified Time Father No current problems or disability [id number].271 [id number] Not available 10/14/2022 01:48:26 Mother No current problems or disability MIGRATION.485 [id number] Not available 10/14/2022 01:48:26 Medical History Condition Response BLINDNESS N RHEUMATIC FEVER N BLADDER PROBLEMS N KIDNEY STONES N MRSA N OTHER # 1 N [...] HAVE YOU BEEN HOSPITALIZED OR SEEN IN [facility] IN THE PAST YEAR ? [...] PAIN N HERPES N DEMENTIA N HEADACHES/MIGRAINES Y SEIZURES/EPILEPSY N VASCULAR DISEASE N PACEMAKER N [...] ICD10 Code Diagnosis IMO Codes Diagnosis Note [id number] Yimi Funk MD [facility] [address] [place] [address] 04/18/2025 11:43:07 04/18/2025 12:55:38 Fatigue 64485923 R53.82 532000 States hx of iron deficiency . Hypokalemia 88751829 E87 .6 9791 Currently taking potassium chloride Health Concerns Section Related Observation LastModified by Organization Detai ls LastModified Time None Recorded Concern Status LastModified by Organization Details LastModified Time None Recorded Payers Encounter Date Sequence Insurance Name Policy Number Policy Simeon Covered Member ID Simeon Member ID Guarantor Name 04/18/2025 1 [facility] ON OR AFTER 02/12/21 (MEDICAID REPLACEMENT - HMO) Tracy Stewart [id number] Tracy Stewart Notes Date Note Type Note Provider Name and Address Organization Details Recorded Time 5 text/html Tracy Stewart is a 25 [...] not indicatedColonoscopy not indicated LIV Mayes [address] [facility], [facility] [address], [place], [address], [place] [facility] [employer] [facility] 04/18/2025 13:50:17 OBGyn Episode No OBEpisode recorded.
[2025-07-08 14:10] LABS: Thyroid Stimulating Hormone Reflex 2.690 uIU/mL (0.465-4.68)
[2025-07-09 14:08] LABS: Deamidated Gliadin Abs, IgA 2 units (0-19); Deamidated Gliadin Abs, IgG 1 units (0-19); Immunoglobulin A, Qn 314 mg/dL (87-352)
[2025-07-09 15:09] LABS: ANA by IFA Rfx Titer/Pattern Negative (.)
== END 2025-07-08 12:20 | disposition home or self-care (01) ==
LOC: ANHLAB 12:19
PROVIDERS: Visit Provider Nurse Practitioner
DX: R11.2 Nausea with vomiting, unspecified (principal)
CPT/HCPCS: 36415; 80053; 81001; 82784; 84443; 85025; 86038; 86231; 86258

== ENCOUNTER 2025-07-16 10:39 | Emergency (ER) | payer OTHER, SELFPAY ==
[2025-07-16 10:46] VITALS: BP 92/60; PULSE 73; RESP 16; TEMP 36.1; O2SAT 100
--- NOTE | 2025-07-16 11:05 | ED.UPPEXIN ---
HPI - Extremity Injury (Upper) General Chief Complaint: Extremity Injury, Upper Stated Complaint: wrist pain Time Seen by Provider: 07/16/25 10:45 Source: patient and RN notes reviewed Mode of arrival: ambulatory Limitations: no limitations History of Present Illness HPI narrative: 25-year-old female presents to the [facility] complaining of bilateral wrist pain. Patient said she woke up with symptoms. She says the left wrist is worse than the right. Patient denies any falls or injuries. Patient said all she did yesterday was carry her small child and was decorating the house for [email or web address]. Patient denies doing any repetitive movements. Patient denies any history carpal tunnel any wrist problems in the past. Patient has not tried anything [id number] to help with symptoms. Patient reports the pain 03/24. Related Data Home Medications ?Medication ?Instructions ?Recorded ?Confirmed ?Last Taken ?Type ferrous sulfate 325 mg (65 mg 325 mg PO DAILY 10/24/24 07/16/25 Unknown History iron) tablet (FeroSul) quetiapine 25 mg tablet 25 mg PO HS 10/24/24 07/16/25 Unknown History clonazepam 0.5 mg tablet 1 mg PO BID PRN anxiety 07/08/25 07/16/25 Unknown History lithium carbonate 300 mg 300 mg PO BID 07/08/25 07/16/25 Unknown History tablet,extended release Allergies Allergy/AdvReac Type Severity Reaction Status Date / Time No Known Allergies Allergy Verified 07/16/25 10:50 Review of Systems Review of Systems: CONSTITUTIONAL: Denies fever, chills, or sweats. EYES: Denies visual changes, redness, or discharge. ENT: Denies rhinorrhea, congestion, sore throat, or otalgia. CARDIOVASCULAR: Denies chest pain, palpitations, or edema. RESPIRATORY: Denies cough or dyspnea. GASTROINTESTINAL: Denies abdominal pain, nausea, vomiting, or diarrhea. GENITOURINARY: Denies dysuria or hematuria. SKIN: Denies rash, wound, or itching. MUSCULOSKELETAL: Denies back pain, joint pain, or myalgia. Positive for bilateral wrist pain. NEUROLOGIC: Denies headache, numbness, or weakness. PSYCHIATRIC: Denies anxiety or depression. All other systems reviewed are negative, except as documented in HPI. [facility] Past Medical History Medical History Chronic daily headache Irregular bleeding Fracture of left wrist Fracture of right elbow Intracranial hypertension Idiopathic History of low potassium Anxiety and depression Surgical History Surgical History H/O bilateral salpingectomy (12/20/24) Laparoscopic bilateral salpingectomy H/O endoscopic sinus surgery History of gynecological procedure (06/20/19) nexplanon insertion History of gynecological procedure (07/23/19) colposcopy History of gynecological procedure (03/06/20) nexplanon removal Family History Family History Grandparent Hypothyroidism Social History Social History Smoking status: Former smoker Tobacco type: e-cigarettes/vaping Second hand tobacco smoke exposure: No Smoking end date: 08/15/20 Alcohol intake: never Substance use: current Substance use type: marijuana Other substance usage details: Daily Lack of Transportation: No Lack of Food: Never True Current Housing: Decline to Answer Concerned About Future Housing: Decline to Answer Difficulty Paying Gas/Electric Bills: Decline to Answer Difficulty Paying for Meds: Decline to Answer Currently Unemployed: Decline to Answer Education: Decline to Answer Difficulty w/ Childcare or Family Care: Decline to Answer Living arrangements: with family Additional living arrangements comments: Occupation/Education: other 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 There is no relevant family history pertinent to the patient complaint. Exam Narrative: GENERAL: This is a well-nourished, well-developed adult, in no apparent distress. They are non ill-appearing, nontoxic appearing. HEAD: normocephalic, atraumatic. EYES: Sclera clear/white. Vision is grossly intact. Conjunctiva normal. Extraocular movement intact. EARS: External ears normal Hearing grossly intact. NOSE: External nose normal THROAT: Mucous membranes moist NECK: Neck supple CARDIOVASCULAR: Regular rate and rhythm RESPIRATORY: Respiratory rate normal, respiratory effort nonlabored, no respiratory distress NEURO: awake, alert, and oriented to person, place and time. There were no obvious focal neurologic abnormalities. EXTREMITIES: Bilateral wrist: No obvious deformity, injury, swelling, bruising, redness. There is pain through full range of motion. Left wrist more tender than right. No bony tenderness. Capillary refill less than 3 seconds. Bilateral radial Pulse 2 +palpable. Normal sensation. No paresthesia. Neurovascular status intact distal injury. There pain associated with the Tinel test, no paraesthesia. BACK: Nontender without deformity. Course Course Level of Care: Express Care Visit Vital Signs Vital signs: Vital Signs Temperature 96.9 F L 07/16/25 10:46 Pulse Rate 73 07/16/25 10:46 Respiratory Rate 16 07/16/25 10:46 Blood Pressure 92/60 L 07/16/25 10:46 Pulse Oximetry 100 07/16/25 10:46 Temperature 96.9 F L 07/16/25 10:46 Pulse Rate 73 07/16/25 10:46 Respiratory Rate 16 07/16/25 10:46 Blood Pressure 92/60 L 07/16/25 10:46 Pulse Oximetry 100 07/16/25 10:46 MDM MDM Narrative Medical decision making narrative: No injury to both wrists, no evidence of injury. No imaging indicated. Could be an overuse injury from yesterday with decorating and lifting her child. Given the severity of pain will give her a burst to steroids. Discussed supportive care and rice therapy. Discussed physical exam findings. Advised supportive measures and signs/symptoms to go to the ER. Pt is appropriate for outpt treatment and f/u. Differential Diagnosis Differential Diagnosis: Wrist sprain, arthritis, wrist pain, contusion, carpal tunnel Critical Care Time Critical Care Time Critical Care Time: No Discharge Plan Discharge Clinical Impression: Pain in both wrists Patient Disposition: Home Condition: Stable Instructions: Wrist Sprain (ED) Additional Instructions: Rest and elevate the affected wrist; uses tolerated Apply ice 15-20 minute intervals several times a day Keep it wrapped with DION or use a wrist cock-up splint. You may take ibuprofen 600 mg to 800 mg every 6-8 hours. Do not exceed more than 800 mg of ibuprofen per dose. Do not exceed more than 3200 mg ibuprofen in a day. You may take up to 1000 mg Tylenol every 6-8 hours. Do not exceed 1000 mg per dose, do exceed more than 4000 mg of Tylenol in a day. Take prednisone as directed Follow up with your primary care provider orthopedist as needed in 1-2 weeks especially if pain is persistent after 10 days. Patient Language: Nepali Prescriptions: New prednisone 20 mg tablet 40 mg PO DAILY 5 Days Qty: 10 0RF No Action quetiapine 25 mg tablet 25 mg PO HS ferrous sulfate [FeroSul] 325 mg (65 mg iron) tablet 325 mg PO DAILY clonazepam 0.5 mg tablet 1 mg PO BID PRN (Reason: anxiety) lithium carbonate 300 mg tablet extended release 300 mg PO BID famotidine 20 mg tablet 20 mg PO BID Qty: 60 3RF prochlorperazine maleate [Compazine] 10 mg tablet 10 mg PO Q8H PRN (Reason: nausea and vomiting) Qty: 30 0RF acetazolamide 250 mg tablet See Rx Instructions .ROUTE .COMPLEX Qty: 60 3RF Dose Instruction: TAKE 1 TABLET(250 MG) BY MOUTH TWICE DAILY Rx Instructions: TAKE 1 TABLET(250 MG) BY MOUTH TWICE DAILY potassium chloride 20 mEq tablet,ER particles/crystals 20 meq PO DAILY Qty: 60 0RF Follow-up/Referrals: Pastora,Collette Lancaster APRN [Primary Care Provider, Unknown] Neno Carson MD [Physician, Orthopedics] Time of Disposition: 11:03
== END 2025-07-16 11:10 | disposition home or self-care (01) ==
DX: M25.532 Pain in left wrist (principal); M25.531 Pain in right wrist; F12.90 Cannabis use, unspecified, uncomplicated; F41.9 Anxiety disorder, unspecified; F32.A Depression, unspecified; Z87.891 Personal history of nicotine dependence
CPT/HCPCS: 99213; G0463